=== PATIENT | female | born 1980 | race Caucasian/White ===

== ENCOUNTER → 2021-06-08 09:22 | Outpatient (BNVA) | payer OTHER, SELFPAY | PROVIDERS: PCP Internal Medicine; Visit Provider Hospitalist ==

== ENCOUNTER 2022-01-09 14:52 | Outpatient (REF) | payer OTHER, SELFPAY ==
--- NOTE | 2022-01-09 17:15 | PFT_ITS ---
Forced vital capacity 92%. FEV1 94%, FEV1/FVC ratio 83, EOE56-39 98% and MVV 97%. All these values are normal. There was no significant change after bronchodilator therapy. Lung volumes: Total lung capacity 96%. Residual volume 101%, normal. Diffusion capacity 105, normal. CONCLUSION: Normal pulmonary function test. No evidence of obstructive or restrictive pulmonary disorder. MD MIRTA Knapp/MODL / [id number]
== END 2022-01-09 14:53 | disposition home or self-care (01) ==
LOC: HO.RESP 14:52
PROVIDERS: PCP Internal Medicine; Visit Provider Hospitalist
DX: J45.40 Moderate persistent asthma, uncomplicated (principal); E88.01 Alpha-1-antitrypsin deficiency
CPT/HCPCS: 94060; 94727; 94729

== ENCOUNTER 2022-01-26 10:47 | Outpatient (REF) | payer OTHER, SELFPAY ==
[2022-01-26 11:49] LABS: MANUAL DIFF FLAG NO
[2022-01-26 12:27] LABS: Basophils Percent Auto 0.6 % (0-2); Eosinophils Percent Auto 0.4 % (0-4); Hematocrit 42.5 % (37.0-47.0); Hemoglobin 14.5 g/dl (12.0-16.0); Imm Gran Abs Auto 0.02 X10*3/uL (0.00-0.03); Imm Gran Pct Auto 0.4 % (0.0-0.4); Lymphocytes Absolute Auto 1.6 X10*3/uL (1.2-4.9); Lymphocytes Percent Auto 33.2 % (20-40); Mean Corpuscular HGB Conc 34.1 g/dl (31.0-35.0); Mean Corpuscular Hemoglobin 30.3 pg (27.0-33.0); Mean Corpuscular Volume 88.7 fL (80.0-98.0); Mean Platelet Volume 8.5 fL (9.4-12.3); Monocytes Absolute Auto 0.3 X10*3/uL (0.1-1.2); Monocytes Percent Auto 6.4 % (2-11); Neutrophils Absolute Auto 2.8 x10*3/uL (2.0-8.3); Platelet Count 313 X10*3/uL (160-400); Red Blood Count 4.79 X10*6/uL (4.20-5.50); Red Cell Distribution Width 12.6 % (11.0-16.0); White Blood Count 4.8 X10*3/uL (4.8-10.8)
[2022-01-26 12:43] LABS: Alanine Aminotransferase 12 U/L (0-31); Albumin Level 4.4 g/dL (3.5-5.0); Alkaline Phosphatase 60 U/L (39-117); Anion Gap 10 (12-20); Aspartate Amino Transferase 14 U/L (5-31); Bilirubin Direct 0.2 mg/dL (0.0-0.5); Bilirubin Total 0.7 mg/dL (0.0-1.0); Blood Urea Nitrogen 18 mg/dL (9-16); Calcium 9.6 mg/dL (8.4-10.2); Carbon Dioxide 29 mmol/L (22-29); Chloride 106 mmol/L (96-108); Estimated Glomerular Filt Rate > 60; Glucose Random 83 mg/dL (60-115); Potassium 4.1 mmol/L (3.3-5.1); Sodium 141 mmol/L (135-145)
[2022-01-26 13:11] LABS: Erythrocyte Sedimentation Rate 5 MM/HR (0-20)
[2022-01-27 18:37] LABS: Immunoglobulin E 97 kU/L (<OR=114)
== END 2022-01-26 10:48 | disposition home or self-care (01) ==
LOC: HO.LAB 10:47
PROVIDERS: PCP Internal Medicine; Visit Provider Hospitalist
DX: J45.40 Moderate persistent asthma, uncomplicated (principal); E88.01 Alpha-1-antitrypsin deficiency; J30.9 Allergic rhinitis, unspecified; R21 Rash and other nonspecific skin eruption; Z79.899 Other long term (current) drug therapy
CPT/HCPCS: 36415; 80048; 80076; 82785; 85025; 85652

== ENCOUNTER 2023-01-26 11:12 | Outpatient (REF) | payer OTHER, SELFPAY ==
[2023-01-26 12:26] LABS: MANUAL DIFF FLAG NO
[2023-01-26 13:38] LABS: Basophils Percent Auto 0.5 % (0-2); Eosinophils Absolute Auto 0.1 X10*3/uL (0.0-0.4); Eosinophils Percent Auto 0.9 % (0-4); Hematocrit 42.7 % (37.0-47.0); Hemoglobin 14.3 g/dl (12.0-16.0); Imm Gran Abs Auto 0.03 X10*3/uL (0.00-0.03); Imm Gran Pct Auto 0.5 % (0.0-0.4); Lymphocytes Percent Auto 35.6 % (20-40); Mean Corpuscular HGB Conc 33.5 g/dl (31.0-35.0); Mean Corpuscular Hemoglobin 29.2 pg (27.0-33.0); Mean Corpuscular Volume 87.3 fL (80.0-98.0); Mean Platelet Volume 8.6 fL (9.4-12.3); Monocytes Absolute Auto 0.5 X10*3/uL (0.1-1.2); Monocytes Percent Auto 8.1 % (2-11); Neutrophils Absolute Auto 3.1 x10*3/uL (2.0-8.3); Neutrophils Percent Auto 54.4 % (45-73); Platelet Count 300 X10*3/uL (160-400); Red Blood Count 4.89 X10*6/uL (4.20-5.50); Red Cell Distribution Width 12.8 % (11.0-16.0); White Blood Count 5.7 X10*3/uL (4.8-10.8)
[2023-01-26 14:18] LABS: Alanine Aminotransferase 18 U/L (0-31); Albumin Level 4.4 g/dL (3.5-5.0); Alkaline Phosphatase 63 U/L (39-117); Anion Gap 12 (12-20); Aspartate Amino Transferase 17 U/L (5-31); Bilirubin Direct < 0.2 mg/dL (0.0-0.5); Bilirubin Total 0.4 mg/dL (0.0-1.0); Blood Urea Nitrogen 15 mg/dL (9-16); Calcium 9.5 mg/dL (8.4-10.2); Carbon Dioxide 25 mmol/L (22-29); Chloride 107 mmol/L (96-108); Estimated Glomerular Filt Rate > 60; Glucose Random 74 mg/dL (60-115); Potassium 4.4 mmol/L (3.3-5.1); Sodium 140 mmol/L (135-145); Total Protein 6.9 g/dL (6.5-8.0)
[2023-01-26 14:26] LABS: Erythrocyte Sedimentation Rate 8 MM/HR (0-20)
[2023-01-29 16:34] LABS: Alpha 1 Anti-trypsin 229 mg/dL (83-199)
[2023-02-02 15:48] LABS: Vitamin D 25-OH, D2 <4 ng/mL; Vitamin D 25-OH, D3 13 ng/mL; Vitamin D 25-OH, Total 13 ng/mL (30-100)
== END 2023-01-26 11:13 | disposition home or self-care (01) ==
LOC: HO.LAB 11:12
PROVIDERS: PCP Internal Medicine; Visit Provider Hospitalist
DX: Z23 Encounter for immunization (principal); E88.01 Alpha-1-antitrypsin deficiency; R21 Rash and other nonspecific skin eruption; J45.40 Moderate persistent asthma, uncomplicated; J30.9 Allergic rhinitis, unspecified; E55.9 Vitamin D deficiency, unspecified
CPT/HCPCS: 36415; 80048; 80076; 82103; 82306; 85025; 85652; 90471; 90677

== ENCOUNTER 2023-07-27 10:53 | Outpatient (AMB) | payer OTHER, SELFPAY ==
--- NOTE | 2023-07-27 10:54 | A.OFFVIS_ITS ---
Intake Vital Signs 07/27/23 10:55 Height 5 ft 2 in Weight 144 lb 6.444 oz BMI 26.4 BP 102/72 Blood Pressure Location Rt brachial Position Sitting Pulse 84 Pulse Source Doppler Pulse Oximetry (%) 98 Oxygen Delivery Method Room Air Intake Visit Reasons: Asthma Allergies No Known Allergies Allergy (Verified 07/27/23 10:56) HPI HPI Comments History of Present Illness Details The patient is a 43 y/o woman with known history asthma in addition to alpha-1 antitrypsin deficiency, MZ with levels of 70, currently receiving aug mentation therapy. overall the patient has been doing well on room respiratory therapy. Recently she has had to use her rescue inhaler a couple times for chest tightness and shortness of breath. She has not required any prednisone and has not required any hospitalizations. The patient has been tolerating her off of 1 augmentation therapy without any significant side effects. She does feel tired 24-48 hours after the infusions. The symptoms do resolve. We did review her blood work from October 2020 demonstrating normal renal and liver function. Her inflammatory markers were normal and her off I level increased to 157. in addition to that her IgE levels were elevated consistent with allergies. At this time the patient with plan to continue the infusion therapy. Will plan to repeat her pulmonary function studies and laboratory data sometime the end of the year. 01/26/2022 The patient is here for a pulmonary follow up visit. Overall the patient has been doing well from a respiratory status. She continues to exercise regularly. She has been noticing increasing nasal congestion and postnasal drip as well as worsening cough. Although her asthma appears to be well controlled with current respiratory therapy. She has not required her short-acting beta agonist. She has continued to receive her weekly augmentation therapy for alpha-1 antitrypsin deficiency. Although for the last few months he has been noticing a rash. The rash is patchy and pruritic. within the patch appears to be some evidence of petechiae in addition to slightly raised papules. she has these patches primarily in her legs that come and go in addition to her lower abdomen. She denies any new changes of detergents or any other exposures. The patient would benefit from having an evaluation from a internet webmaster. In the meantime he to consider it potentially being a allergic reaction to the alpha-1 infusions. She will continue the therapy I will add antihistamine therapy to see if she received some benefit. Will also have her undergo blood work. 08/04/2022 the patient is here for a pulmonary follow-up visit. Patient overall is doing well from a respiratory status. Denies any recent wheezing or significant coughing. She continues to receive her augmentation therapy for her alpha-1 antitrypsin deficiency. Lately, she has been experiencing rashes. She was evaluated by dermatology in felt to be eczema. Subsequently after that she started developing hip discomfort and burning sensations down the leg. Patient also complains small joint discomfort primarily her hands. Denies any family history of connective tissue conditions. She will be following up with her primary care doctor soon. I did encourage her to for her to undergo blood work just to assess for connective tissue conditions during her next appointment with primary care. In the meantime the patient also is concerned these symptoms could be adverse effects from the augmentation therapy for her alpha-1 a ntitrypsin deficiency. I believe this would be less likely. However, she can always consider taking a small holiday from the infusions to see if there is any improvement in her symptoms if no clear etiology is found. 01/26/2023 the patient is here for a pulmonary follow-up visit. Overall the patie nt has been doing well. She is still exercising regularly. She did have an issue with a fractured little toe where did heal for about 3 months. She had vitamin-D levels that were low. She was reading about alpha-1 antitrypsin deficiency working resulting osteopenia. Therefore she is concerned for the possibility of this to be the case. At this point will go ahead and repeat her vitamin-D levels and calcium levels but I do not believe that additional testing is warranted as far as the alpha-1 condition. She is also concerned about the possibility of liver disease in the future. Will continue to monitor closely her LFTs although they have been normal in the past. The patient continues to receive the augmentation therapy for the off a want a weekly basis. She seems to be tolerating it better. Her allergies have been acting up. She is taking owyc-lpa-jakygko antihistamine therapy. The patient will undergo blood work at this time. Otherwise, will follow-up in the fall 2022. 07/27/2023 the patient is here for pulmonary follow-up visit. She continues to do very well. The patient continues on the alpha-1 augmentation therapy on a weekly basis. After the infusions she is still experiencing symptoms of fatigue and also body ache. The symptoms usually last around 24 hours. She also snores per her . She has had a sleep study many years ago which was negative for any sleep apnea. Although if she continues to have daytime drowsiness with an elevated Hazel score then over reasonable for her to get home sleep study. She does use a mouth guard. I did recommend she can talk to her dentist about getting hurt elastic type of mandibular device with mouth guards as a good option for snoring and also likely treat mild degree of sleep apnea. We talked about considering switching to a different agent, but, the patient is concerned about potential new side effects from a different preparation. At least do this when she knows where she is getting. She does g et some relief when she does take Naprosyn after the infusion. I did recommend she can try taking magnesium for muscle spasms prior to the infusion if this is not helpful then just to take ibuprofen or Naprosyn pre infusion. Will go ahead and repeat her blood work for the next visit her last set of blood work From January 2023 were reassuring. [facility] Medical History (Updated 08/06/22 @ 21:47 by Bryant Barraza MD) Liuxu-3-ykdhkgldyln deficiency Asthma Chronic allergic rhinitis Family History (Updated 06/12/21 @ 21:47 by Bryant Barraza MD) Other Vvzgb-6-ecbokzqdjcj deficiency Asthma Social History Patient Tobacco Use Status: Never used Tobacco Review of Systems Const Reports fatigue and Denies night sweats ENT Denies change in voice, Denies lip swelling, Denies mouth pain, Reports nasal congestion, Reports nasal discharge and Denies tongue swelling Card Denies chest pain Resp Reports cough GI Denies abdominal pain Musc Reports as per HPI, Reports myalgias and Reports arthralgias Skin/Breast Reports rash Neuro Denies Neuro-related abnormal movements, Reports burning sensations and Reports paresthesias Psych Denies no additional complaints Endo Reports fatigue Khoa/Lymph Denies easy bleeding and Denies lymphadenopathy Aller/Immun Denies lip swelling and Denies tongue swelling Physical Exam Vital Signs: Last Vital Signs Pulse 84 07/27/23 10:55 BP 102/72 07/27/23 10:55 Pulse Ox 98 07/27/23 10:55 Oxygen Delivery Method Room Air 07/27/23 10:55 BMI result Body Mass Index 26.4 Const General: alert Eyes Pupils: Equal, round and reactive pupils present Neck Neck: Yes normal visual inspection, Yes full ROM and Yes no lymphadenopathy Chest Chest palpation & inspection: normal inspection of the chest Resp Auscultation: clear to auscultation bilaterally and no wheezes Cardio Rate: regular rate Rhythm: regular rhythm Heart sounds: S1 normal heart sound present and S2 normal heart sound present GI Palpation (GI): Soft to palpation and nontender Auscultation: normal bowel sounds Skin Other: General skin exam: petechiae Rashes: rashes noted (pleuritic patches and petichia) Neuro Cranial nerves: Yes Equal, round and reactive pupils present Assessment & Plan Assessment & Plan (1) Zhvpo-8-tgzmhetclcw deficiency: Code(s): E88.01 - Oyqxa-7-zxxlokdrpjt deficiency (2) Asthma: Code(s): J45.909 - Unspecified asthma, uncomplicated Qualifiers: Asthma complication type: uncomplicated Asthma persistence: persistent Asthma severity: moderate Qualified Code(s): J45.40 - Moderate persistent asthma, uncomplicated (3) Chronic allergic rhinitis: Code(s): J30.9 - Allergic rhinitis, unspecified Plan start Symbicort stop Breo Continue Singulair Continue alpha 1 antitrypsin aumentation therapy weekly. consider taking OTC Magnesium or NSAIDS pre infusion pneumonia vaccine Bloodwork for the spring/spring Orders: Orders Alpha 1 Anti-trypsin Today E88.01 - Ryfzl-2-ingkzqdwesx deficiency, J45.909 - Unspecified asthma, uncomplicated Basic Metabolic Panel Today E88.01 - Dojch-3-fdowzyqpmxf deficiency, J45.909 - Unspecified asthma, uncomplicated Liver Panel Today E88.01 - Wwwtg-8-qsuqafiulxu deficiency, J45.909 - Unspecified asthma, uncomplicated Complete Blood Count Auto Diff Today E88.01 - Qekan-5-cfokoahzhaf deficiency, J45.909 - Unspecified asthma, uncomplicated Erythrocyte Sedimentation Rate Today E88.01 - Wvjrv-8-yjnnlwaznpj deficiency, J45.909 - Unspecified asthma, uncomplicated Immunoglobulin E Today E88.01 - Uvvwy-2-usqrchzwahu deficiency, J45.909 - Unspecified asthma, uncomplicated Medications: New budesonide-formoterol 160-4.5 mcg/actuation (Symbicort) 2 puffs inhalation BID 10.2 grams 11RF 30 days J44.9 - Chronic obstructive pulmonary disease, unspecified Discontinued fluticasone furoate-vilanterol 200-25 mcg/dose (Breo Ellipta) patient needs follow up before any further refills Discontinued Reason: Doctor's Order 1 inh inhalation DAILY 60 ea 11RF Coding Level of Care Code Est Pt Level 4 (02927) Diagnoses Zvzzt-2-udnglamuiqz 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 Asthma J45.40 Asthma complication type: uncomplicated Asthma persistence: persistent Asthma severity: moderate Chronic allergic rhinitis J30.9 Time Spent (min) 18
[2023-07-27 10:55] VITALS: BP 102/72; PULSE 84; O2SAT 98; BMI 26.4
== END 2023-07-27 11:25 | disposition home or self-care (01) ==
PROVIDERS: PCP Internal Medicine; Visit Provider Hospitalist
DX: E88.01 Alpha-1-antitrypsin deficiency (principal); J45.40 Moderate persistent asthma, uncomplicated; J30.9 Allergic rhinitis, unspecified
CPT/HCPCS: 99214

== ENCOUNTER → 2023-07-27 10:53 | Outpatient (BNVA) | payer OTHER, SELFPAY | PROVIDERS: PCP Internal Medicine; Visit Provider Hospitalist | DX: R21 Rash and other nonspecific skin eruption (principal); J45.909 Unspecified asthma, uncomplicated; E88.01 Alpha-1-antitrypsin deficiency ==

== ENCOUNTER 2023-11-27 10:48 | Outpatient (REF) | payer OTHER, SELFPAY ==
[2023-11-27 12:35] LABS: Influenza A PCR NEGATIVE (Negative); Influenza B PCR NEGATIVE (Negative); Resp Syncy Virus RNA Qual PCR NEGATIVE (Negative); SARS COV2 PCR INHOUSE NEGATIVE (Negative)
== END 2023-11-27 10:49 | disposition home or self-care (01) ==
LOC: HO.LNP 10:48
PROVIDERS: PCP Internal Medicine; Visit Provider Hospitalist
DX: Z11.52 Encounter for screening for COVID-19 (principal); J06.9 Acute upper respiratory infection, unspecified; J45.41 Moderate persistent asthma with (acute) exacerbation
CPT/HCPCS: 0241U

== ENCOUNTER 2023-11-27 10:48 | Outpatient (AMB) | payer OTHER, SELFPAY ==
[2023-11-27 10:57] VITALS: PULSE 89; O2SAT 96; BMI 26.5
--- NOTE | 2023-11-27 10:57 | A.OFFVIS_ITS ---
Intake Vital Signs 3 11/27/23 10:57 Height 5 ft 2 in Weight 145 lb BMI 26.5 Pulse 89 Pulse Source Pulse Oximeter Pulse Oximetry (%) 96 Oxygen Delivery Method Room Air Intake Visit Reasons: Cough Director Of Critical Care Required: No Allergies No Known Allergies Allergy (Verified 11/27/23 10:58) HPI HPI Comments 2 History of Present Illness0 Details The patient is a 43 y/o woman with known history asthma in addition to alpha-1 antitrypsin deficiency, MZ with levels of 70, currently receiving augmentation therapy. overall the patient has been doing well on room respiratory therapy. Recently she has had to use her rescue inhaler a couple times for chest tightness and shortness of breath. She has not required any prednisone and has not required any hospitalizations. The patient has been tolerating her off of 1 augmentation therapy without any significant side effects. She does feel tired 24-48 hours after the infusions. The symptoms do resolve. We did review her blood work from October 2020 demonstrating normal renal and liver function. Her inflammatory markers were normal and her off I level increased to 157. in addition to that her IgE levels were elevated consistent with allergies. At this time the patient with plan to continue the infusion therapy. Will plan to repeat her pulmonary function studies and laboratory data sometime the end of the year. 01/26/2022 The patient is here for a pul monary follow up visit. Overall the patient has been doing well from a respiratory status. She continues to exercise regularly. She has been noticing increasing nasal congestion and postnasal drip as well as worsening cough. Although her asthma appears to be well controlled with current respiratory therapy. She has not required her short-acting beta agonist. She has continued to receive her weekly augmentation therapy for alpha-1 antitrypsin deficiency. Although for the last few months he has been noticing a rash. The rash is patchy and pruritic. within the patch appears to be some evidence of petechiae in addition to slightly raised papules. she has these patches primarily in her legs that come and go in addition to her lower abdomen. She denies any new changes of detergents or any other exposures. The patient would benefit from having an evaluation from a solar installation technician. In the meantime he to consider it potentially being a allergic reaction to the alpha-1 infusions. She will continue the therapy I will add antihistamine therapy to see if she received some benefit. Will also have her undergo blood work. 08/04/2022 the patient is here for a pulmonary follow-up visit. Patient overall is doing well from a respiratory status. Denies any recent wheezing or significant coughing. She continues to receive her augmentation therapy for her alpha-1 antitrypsin deficiency. Lately, she has been experiencing rashes. She was evaluated by dermatology in felt to be eczema. Subsequently after that she started developing hip discomfort and burning sensations down the leg. Patient also complains small joint discomfort primarily her hands. Denies any family history of connective tissue conditions. She will be following up with her primary care doctor soon. I did encourage her to for her to undergo blood work just to assess for connective tissue conditions during her next appointment with primary care. In the meantime the patient also is concerned these symptoms could be adverse effects from the augmentation therapy for her alpha-1 antitrypsin deficiency. I believe this would be less likely. However, she can always consider taking a small holiday from the infusions to see if there is any improvement in her symptoms if no clear etiology is found. 01/26/2023 the patient is here for a pulmo nary follow-up visit. Overall the patient has been doing well. She is still exercising regularly. She did have an issue with a fractured little toe where did heal for about 3 months. She had vitamin-D levels that were low. She was reading about alpha-1 antitrypsin deficiency working resulting osteopenia. Therefore she is concerned for the possibility of this to be the case. At this point will go ahead and repeat her vitamin-D levels and calcium levels but I do not believe that additional testing is warranted as far as the alpha-1 condition. She is also concerned about the possibility of liver disease in the future. Will continue to monitor closely her LFTs although they have been normal in the past. The patient continues to receive the augmentation therapy for the off a want a weekly basis. She seems to be tolerating it better. Her allergies have been acting up. She is taking flrb-ihf-npcimir antihistamine therapy. The patient will undergo blood work at this time. Otherwise, will follow-up in the fall 2022. 07/27/2023 the patient is here for pulmonary follow-up visit. She continues to do very well. The patient continues on the alpha-1 augmentation therapy on a weekly basis. After the infusions she is still experiencing symptoms of fatigue and also body ache. The symptoms usually last around 24 hours. She also snores per her . She has had a sleep study many years ago which was negative for any sleep apnea. Although if she continues to have daytime drowsiness with an elevated Delphia score then over reasonable for her to get home sleep study. She does use a mouth guard. I did recommend she can talk to her dentist about getting hurt elastic type of mandibular device with mouth guards as a good option for snoring and also likely treat mild degree of sleep apnea. We talked about considering switching to a different agent, but, the patient is concerned about potential new side effects from a different preparation. At least do this when she knows where she is getting. She does get some relief when she does take Naprosyn after the infusion. I did recommend she can try taking magnesium for muscle spasms prior to the infusion if this is not helpful then just to take ibuprofen or Naprosyn pre infusion. Will go ahead and repeat her blood work for the next visit her last set of blood work From January 2023 were reassuring. 11/27/2023 the patient is here for sick [facility]. Apparently she has been sick now for about 5 days. She started getting sick on Sunday evening when she developed some chest tightness and cough. Noticing increasing wheezing. She started using her nebulizer more often. Then she became very fatigued. She did test negative for COVID-19. The patient started coughing and chest congestion with yellow phlegm. She feels still very tired. She did have a swab today which was negative for the flu RSV and also COVID. The patient does have some persistent coughing and also some wheezing on examination. Therefore will go ahead and treated for asthmatic bronchitis. No need for an x-ray at this time. If her symptoms do not respond to her therapy the patient will call for further evaluation. [facility] Medical History (Updated 11/27/23 @ 12:59 by Bryant Barraza MD) Chronic allergic rhinitis Asthma Wjqpc-9-lqhgnfaxdhl deficiency Family History (Updated 06/12/21 @ 21:47 by Bryant Barraza MD) Other Amzyy-5-jcxnfpsfexi deficiency Asthma Social History Patient Tobacco Use Status: Never used Tobacco Review of Systems Const Reports chills, Reports fatigue, Denies fever(s), Reports malaise and Denies night sweats ENT Denies change in voice, Denies lip swelling, Denies mouth pain, Reports nasal congestion, Reports nasal discharge, Reports post nasal drip, Reports sinus pain, Reports sinus pressure and Denies tongue swelling Card Denies chest pain Resp Reports change in phlegm color, Reports chest congestion, Reports cough and Reports wheezing GI Denies abdominal pain Musc Reports as per HPI, Reports myalgias and Reports arthralgias Skin/Breast Reports rash Neuro Denies Neuro-related abnormal movements, Reports burning sensations and Reports paresthesias Psych Denies no additional complaints Endo Reports fatigue Khoa/Lymph Denies easy bleeding and Denies lymphadenopathy Aller/Immun Denies lip swelling, Denies tongue swelling and Reports wheezing Physical Exam Vital Signs: Last Vital Signs Pulse 89 11/27/23 10:57 Pulse Ox 96 11/27/23 10:57 Oxygen Delivery Method Room Air 11/27/23 10:57 BMI result Body Mass Index 26.5 Const General: alert and tired appearing Eyes Pupils: Equal, round and reactive pupils present Neck Neck: Yes normal visual inspection, Yes full ROM and Yes no lymphadenopathy Chest Chest palpation & inspection: normal inspection of the chest Resp Effort & Inspection: Actively coughing Auscultation: clear to auscultation bilaterally, rhonchi and wheezes Cardio Rate: regular rate Rhythm: regular rhythm Heart sounds: S1 normal heart sound present and S2 normal heart sound present GI Palpation (GI): Soft to palpation and nontender Auscultation: normal bowel sounds Skin Other: General skin exam: petechiae Rashes: rashes noted (pleuritic patches and petichia) Neuro Cranial nerves: Yes Equal, round and reactive pupils present Assessment & Plan Assessment & Plan (1) Asthma: Code(s): J45.909 - Unspecified asthma, uncomplicated Qualifiers: Asthma severity: moderate Asthma persistence: persistent Asthma complication type: with acute exacerbation Qualified Code(s): J45.41 - Moderate persistent asthma with (acute) exacerbation (2) URI (upper respiratory infection): Code(s): J06.9 - Acute upper respiratory infection, unspecified Qualifiers: URI type: unspecified URI Qualified Code(s): J06.9 - Acute upper respiratory infection, unspecified (3) Epjva-0-yeanagzdwgo deficiency: Code(s): E88.01 - Nhwkv-8-ovfotfienfh deficiency (4) Chronic allergic rhinitis: Code(s): J30.9 - Allergic rhinitis, unspecified Plan start Doxycycline start prednisone cough medicine tessalon pearls Symbicort Continue Singulair Continue alpha 1 antitrypsin aumentation therapy weekly. consider taking OTC Magnesium or NSAIDS pre infusion pneumonia vaccine F/U Spring 2023 Orders: Orders 2 SARS-CoV2/FLU/RSV Today J06.9 - Acute upper respiratory infection, unspecified Medications: New 2 doxycycline hyclate 100 mg PO BID 10 days 20 caps 0RF codeine-guaifenesin 10-100 mg/5 mL 10 mL PO Q6H 10 days PRN 300 mL 0RF cough prednisone PO daily; Take 2 tabs daily x 5 days, then 1 tablet daily x 5 days 10 days 15 tabs 0RF benzonatate 200 mg PO BID 30 days PRN 60 caps 0RF cough Coding Level of Care Code Est Pt Level 4 (05461) Diagnoses Moderate persistent asthma with acute exacerbation J45.41 Asthma severity: moderate Asthma persistence: persistent Asthma complication type: with acute exacerbation Upper respiratory tract infection, unspecified type J06.9 URI type: unspecified URI Mhdqi-3-bhfldaabgwv 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 Chronic allergic rhinitis J30.9 Time Spent (min) 16
== END 2023-11-27 11:12 | disposition home or self-care (01) ==
PROVIDERS: PCP Internal Medicine; Visit Provider Hospitalist
DX: J45.41 Moderate persistent asthma with (acute) exacerbation (principal); J06.9 Acute upper respiratory infection, unspecified; E88.01 Alpha-1-antitrypsin deficiency; J30.9 Allergic rhinitis, unspecified
CPT/HCPCS: 99214

== ENCOUNTER 2024-03-21 10:58 | Outpatient (AMB) | payer OTHER, SELFPAY ==
[2024-03-21 11:20] VITALS: PULSE 68; O2SAT 99; BMI 26.9
--- NOTE | 2024-03-21 11:20 | MHC.OFFVIS ---
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 overall the patient has been doing well on room respiratory therapy. Recently she has had to use her rescue inhaler a couple times for chest tightness and shortness of breath. She has not required any prednisone and has not required any hospitalizations. The patient has been tolerating her off of 1 augmentation therapy without any significant side effects. She does feel tired 24-48 hours after the infusions. The symptoms do resolve. We did review her blood work from October 2020 demonstrating normal renal and liver function. Her inflammatory markers were normal and her off I level increased to 157. in addition to that her IgE levels were elevated consistent with allergies. At this time the patient with plan to continue the infusion therapy. Will plan to repeat her pulmonary function studies and laboratory data sometime the end of the year. 07/27/2023 the patient is here for pulmonary follow-up visit. She continues to do very well. The patient continues on the alpha-1 augmentation therapy on a weekly basis. After the infusions she is still experiencing symptoms of fatigue and also body ache. The symptoms usually last around 24 hours. She also snores per her . She has had a sleep study many years ago which was negative for any sleep apnea. Although if she continues to have daytime drowsiness with an elevated [place] score then over reasonable for her to get home sleep study. She does use a mouth guard. I did recommend she can talk to her dentist about getting hurt elastic type of mandibular device with mouth guards as a good option for snoring and also likely treat mild degree of sleep apnea. We talked about considering switching to a different agent, but, the patient is concerned about potential new side effects from a different preparation. At least do this when she knows where she is getting. She does get some relief when she does take Naprosyn after the infusion. I did recommend she can try taking magnesium for muscle spasms prior to the infusion if this is not helpful then just to take ibuprofen or Naprosyn pre infusion. Will go ahead and repeat her blood work for the next visit her last set of blood work From January 2023 were reassuring. 11/27/2023 the patient is here for sick visit. Apparently she has been sick now for about 5 days. She started getting sick on Sunday evening when she developed some chest tightness and cough. Noticing increasing wheezing. She started using her nebulizer more often. Then she became very fatigued. She did test negative for COVID-19. The patient started coughing and chest congestion with yellow phlegm. She feels still very tired. She did have a swab today which was negative for the flu RSV and also COVID. The patient does have some persistent coughing and also some wheezing on examination. Therefore will go ahead and treated for asthmatic bronchitis. No need for an x-ray at this time. If her symptoms do not respond to her therapy the patient will call for further evaluation. 03/21/2024 the patient is here for a pulmonary follow-up visit. Overall she is still well. She continues infusions on a weekly basis. Still having significant fatigue after the infusions where she needs to usually rest for the rest of the day. She still developing minimal rashes from the infusions. Is using premedications with Benadryl which helped some. She has never had to use her EpiPen. She will continue to monitor closely for any adverse effects or allergic reactions. I which point we would have to hold the infusions. The other poor products we can use but then the also be something new for her to tolerate. Therefore since she is doing okay right now nothing seems to be getting worse will continue with current plan. She will have blood work to make sure that she is tolerating the therapy well and will have to monitor closely her alpha-1 levels and also her liver function studies. The patient continues the Symbicort inhaler. She is exercising more regularly which is reassuring. Overall she feels better from health status standpoint. [facility] Medical History (Updated 03/23/24 @ 22:40 by Bryant Barraza MD) Chronic allergic rhinitis Asthma Xaegm-8-cvwaaowjbvl deficiency Family History (Updated 06/12/21 @ 21:47 by Bryant Barraza MD) Other Stbzu-2-jjcdmmfxagr deficiency Asthma Social History Patient Tobacco Use Status: Never used Tobacco Review of Systems Const Reports chills, Reports fatigue, Denies fever(s), Reports malaise and Denies night sweats ENT Denies change in voice, Denies lip swelling, Denies mouth pain, Reports nasal congestion, Reports nasal discharge, Reports post nasal drip and Denies tongue swelling Card Denies chest pain Resp Denies change in phlegm color, Denies chest congestion, Reports cough and Denies wheezing GI Denies abdominal pain Musc Reports as per HPI, Reports myalgias and Reports arthralgias Skin/Breast Reports rash Neuro Denies Neuro-related abnormal movements, Reports burning sensations and Reports paresthesias Psych Denies no additional complaints Endo Reports fatigue Khoa/Lymph Denies easy bleeding and Denies lymphadenopathy Aller/Immun Denies lip swelling, Denies tongue swelling and Denies wheezing Physical Exam Vital Signs: Last Vital Signs Pulse 68 03/21/24 11:20 Pulse Ox 99 03/21/24 11:20 Oxygen Delivery Method Room Air 03/21/24 11:20 BMI result Body Mass Index 26.9 Const General: alert and tired appearing HEENT Head: Yes normocephalic Eyes Pupils: Equal, round and reactive pupils present Neck Neck: Yes normal visual inspection, Yes full ROM and Yes no lymphadenopathy Chest Chest palpation & inspection: normal inspection of the chest Resp Effort & Inspection: normal respiratory effort and No prolonged expiratory phase Auscultation: clear to auscultation bilaterally Cardio Rate: regular rate Rhythm: regular rhythm Heart sounds: S1 normal heart sound present and S2 normal heart sound present GI Palpation (GI): Soft to palpation and nontender Auscultation: normal bowel sounds Skin Other: General skin exam: petechiae Rashes: rashes noted (pleuritic patches and petichia) Neuro Cranial nerves: Yes Equal, round and reactive pupils present Assessment & Plan Assessment & Plan (1) Asthma: Code(s): J45.909 - Unspecified asthma, uncomplicated Category: Medical Qualifiers: Asthma complication type: uncomplicated Asthma persistence: persistent Asthma severity: moderate Qualified Code(s): J45.40 - Moderate persistent asthma, uncomplicated (2) Lbumu-5-wvcdrfiptju deficiency: Code(s): E88.01 - Blpre-0-gegppziccxh deficiency Category: Medical (3) Chronic allergic rhinitis: Code(s): J30.9 - Allergic rhinitis, unspecified Category: Medical Plan Symbicort JOSEPH as needed Continue Singulair Continue alpha 1 antitrypsin aumentation therapy weekly. Monitor for worsening rash bloodwork F/U 6 months Orders: Orders Alpha 1 Anti-trypsin 03/21/24 E88.01 - Noceu-4-fdwfdlrjdyx deficiency, J30.9 - Allergic rhinitis, unspecified, J45.41 - Moderate persistent asthma with (acute) exacerbation Erythrocyte Sedimentation Rate 03/21/24 E88.01 - Jwjxq-8-oibotniqtsb deficiency, J30.9 - Allergic rhinitis, unspecified, J45.41 - Moderate persistent asthma with (acute) exacerbation Complete Blood Count Auto Diff 03/21/24 E88.01 - Mbteu-6-uiybvptuatk deficiency, J30.9 - Allergic rhinitis, unspecified, J45.41 - Moderate persistent asthma with (acute) exacerbation Basic Metabolic Panel 03/21/24 E88.01 - Clehn-9-hyebsrktxyh deficiency, J30.9 - Allergic rhinitis, unspecified, J45.41 - Moderate persistent asthma with (acute) exacerbation Medications: New budesonide-formoterol 160-4.5 mcg/actuation 2 puffs inhalation BID 10.2 grams 11RF 30 days J44.89 - Other specified chronic obstructive pulmonary disease Coding Level of Care Code Est Pt Level 4 (89246) Diagnoses Moderate persistent asthma without complication J45.40 Asthma complication type: uncomplicated Asthma persistence: persistent Asthma severity: moderate Ynhtw-9-megpxxxwjwi 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 Chronic allergic rhinitis J30.9 Time Spent (min) 16
== END 2024-03-21 11:48 | disposition home or self-care (01) ==
PROVIDERS: PCP Internal Medicine; Visit Provider Hospitalist
DX: J45.40 Moderate persistent asthma, uncomplicated (principal); E88.01 Alpha-1-antitrypsin deficiency; J30.9 Allergic rhinitis, unspecified
CPT/HCPCS: 99214

== ENCOUNTER → 2024-03-21 10:58 | Outpatient (BNVA) | payer OTHER, SELFPAY | PROVIDERS: PCP Internal Medicine; Visit Provider Hospitalist | DX: R21 Rash and other nonspecific skin eruption (principal); J45.909 Unspecified asthma, uncomplicated; E88.01 Alpha-1-antitrypsin deficiency; J44.9 Chronic obstructive pulmonary disease, unspecified ==

== ENCOUNTER 2024-04-02 13:20 | Outpatient (REF) | payer OTHER, SELFPAY ==
[2024-04-02 13:32] LABS: MANUAL DIFF FLAG NO
[2024-04-02 13:40] LABS: Basophils Absolute Auto 0.1 X10*3/uL (0.0-0.2); Basophils Percent Auto 0.9 % (0-2); Eosinophils Absolute Auto 0.1 X10*3/uL (0.0-0.4); Eosinophils Percent Auto 0.9 % (0-4); Hematocrit 41.5 % (37.0-47.0); Hemoglobin 14.4 g/dl (12.0-16.0); Imm Gran Abs Auto 0.02 X10*3/uL (0.00-0.03); Imm Gran Pct Auto 0.3 % (0.0-0.4); Lymphocytes Percent Auto 35.1 % (20-40); Mean Corpuscular HGB Conc 34.7 g/dl (31.0-35.0); Mean Corpuscular Volume 86.5 fL (80.0-98.0); Mean Platelet Volume 8.3 fL (9.4-12.3); Monocytes Absolute Auto 0.5 X10*3/uL (0.1-1.2); Monocytes Percent Auto 8.6 % (2-11); Neutrophils Absolute Auto 3.1 x10*3/uL (2.0-8.3); Neutrophils Percent Auto 54.2 % (45-73); Platelet Count 294 X10*3/uL (160-400); Red Cell Distribution Width 12.6 % (11.0-16.0); White Blood Count 5.7 X10*3/uL (4.8-10.8)
[2024-04-02 14:15] LABS: Anion Gap 12 (12-20); Blood Urea Nitrogen 17 mg/dL (9-16); Calcium 9.8 mg/dL (8.4-10.2); Carbon Dioxide 27 mmol/L (22-29); Chloride 107 mmol/L (96-108); Estimated Glomerular Filt Rate > 60; Glucose Random 90 mg/dL (60-115); Potassium 4.1 mmol/L (3.3-5.1); Sodium 142 mmol/L (135-145)
[2024-04-02 14:26] LABS: Erythrocyte Sedimentation Rate 7 MM/HR (0-20)
[2024-04-03 13:18] LABS: Alpha 1 Anti-trypsin 181 mg/dL (83-199)
== END 2024-04-02 13:21 | disposition home or self-care (01) ==
LOC: HO.LAB 13:20
PROVIDERS: PCP Internal Medicine; Visit Provider Hospitalist
DX: E88.01 Alpha-1-antitrypsin deficiency (principal); J45.41 Moderate persistent asthma with (acute) exacerbation; J30.9 Allergic rhinitis, unspecified
CPT/HCPCS: 36415; 80048; 82103; 85025; 85652

== ENCOUNTER 2024-05-28 09:44 | Outpatient (AMB) | payer OTHER, SELFPAY ==
[2024-05-28 09:51] VITALS: PULSE 73; O2SAT 98; BMI 26.9
--- NOTE | 2024-05-28 09:51 | A.OFFVIS_ITS ---
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 overall the patient has been doing well on room respiratory therapy. Recently she has had to use her rescue inhaler a couple times for chest tightness and shortness of breath. She has not required any prednisone and has not required any hospitalizations. The patient has been tolerating her off of 1 augmentation therapy without any significant side effects. She does feel tired 24-48 hours after the infusions. The symptoms do resolve. We did review her blood work from October 2020 demonstrating normal renal and liver function. Her inflammatory markers were normal and her off I level increased to 157. in addition to that her IgE levels were elevated consistent with allergies. At this time the patient with plan to continue the infusion therapy. Will plan to repeat her pulmonary function studies and laboratory data sometime the end of the year. 07/27/2023 the patient is here for pulmonary follow-up visit. She continues to do very well. The patient continues on the alpha-1 augmentation therapy on a weekly basis. After the infusions she is still experiencing symptoms of fatigue and also body ache. The symptoms usually last around 24 hours. She also snores per her . She has had a sleep study many years ago which was negative for any sleep apnea. Although if she continues to have daytime drowsiness with an elevated [place] score then over reasonable for her to get home sleep study. She does use a mouth guard. I did recommend she can talk to her dentist about getting hurt elastic type of mandibular device with mouth guards as a good option for snoring and also likely treat mild degree of sleep apnea. We talked about considering switching to a different agent, but, the patient is concerned about potential new side effects from a different preparation. At least do this when she knows where she is getting. She does get some relief when she does take Naprosyn after the infusion. I did recommend she can try taking magnesium for muscle spasms prior to the infusion if this is not helpful then just to take ibuprofen or Naprosyn pre infusion. Will go ahead and repeat her blood work for the next visit her last set of blood work From January 2023 were reassuring. 11/27/2023 the patient is here for sick visit. Apparently she has been sick now for about 5 days. She started getting sick on Sunday evening when she developed some chest tightness and cough. Noticing increasing wheezing. She started using her nebulizer more often. Then she became very fatigued. She did test negative for COVID-19. The patient started coughing and chest congestion with yellow phlegm. She feels still very tired. She did have a swab today which was negative for the flu RSV and also COVID. The patient does have some persistent coughing and also some wheezing on examination. Therefore will go ahead and treated for asthmatic bronchitis. No need for an x-ray at this time. If her symptoms do not respond to her therapy the patient will call for further evaluation. 03/21/2024 the patient is here for a pulmonary follow-up visit. Overall she is still well. She continues infusions on a weekly basis. Still having significant fatigue after the infusions where she needs to usually rest for the rest of the day. She still developing minimal rashes from the infusions. Is using premedications with Benadryl which helped some. She has never had to use her EpiPen. She will continue to monitor closely for any adverse effects or allergic reactions. I which point we would have to hold the infusions. The other poor products we can use but then the also be something new for her to tolerate. Therefore since she is doing okay right now nothing seems to be getting worse will continue with current plan. She will have blood work to make sure that she is tolerating the therapy well and will have to monitor closely her alpha-1 levels and also her liver function studies. The patient continues the Symbicort inhaler. She is exercising more regularly which is reassuring. Overall she feels better from health status standpoint. 05/28/2024 the patient is here for sick visit. The patient has been developing increasing chest tightness and shortness of breath while exercising. Important has to do with the change in the humidity and heat. She has been using Symbicort with partial response. She also has been using her rescue inhaler. She has been noticing increasing shortness of breath. Sometimes palpitations. Sometimes she also complains chest pressure. Fuyg-kv-izbssreo severity. Currently she is doing okay without any chest discomfort. She continues on the alpha-1 augmentation therapy. She does not on a weekly basis. She is still premedicated with Benadryl to minimize adverse effects. It appears to be working well. If the patient develops any worsening symptoms she will call. Otherwise she is going to undergo an EKG and also blood work in case her symptoms persist. Will go ahead and optimize her respiratory therapy by switching her inhaler to breztri. [facility] Medical History (Updated 05/28/24 @ 10:11 by Bryant Barraza MD) Dizziness Chronic allergic rhinitis Asthma Klhgx-9-baiwfexqipk deficiency Family History (Updated 06/12/21 @ 21:47 by Bryant Barraza MD) Other [place]-2-qhajtmhymgo deficiency Asthma Social History Patient Tobacco Use Status: Never used Tobacco Review of Systems Const Denies fever(s) and Denies night sweats ENT Denies change in voice, Denies lip swelling, Denies mouth pain, Reports nasal congestion, Reports nasal discharge, Reports post nasal drip and Denies tongue swelling Card Denies chest pain and Reports dyspnea on exertion Resp Denies change in phlegm color, Denies chest congestion, Reports cough, Reports dyspnea on exertion and Reports wheezing GI Denies abdominal pain Musc Reports as per HPI, Reports myalgias and Reports arthralgias Skin/Breast Reports rash Neuro Denies Neuro-related abnormal movements, Reports burning sensations and Reports paresthesias Psych Denies no additional complaints Khoa/Lymph Denies easy bleeding and Denies lymphadenopathy Aller/Immun Denies lip swelling, Denies tongue swelling and Reports wheezing Physical Exam Vital Signs: Last Vital Signs Pulse 73 05/28/24 09:51 Pulse Ox 98 05/28/24 09:51 Oxygen Delivery Method Room Air 05/28/24 09:51 BMI result Body Mass Index 26.9 Const General: alert and tired appearing HEENT Head: Yes normocephalic Eyes Pupils: Equal, round and reactive pupils present Neck Neck: Yes normal visual inspection, Yes full ROM and Yes no lymphadenopathy Chest Chest palpation & inspection: normal inspection of the chest Resp Effort & Inspection: normal respiratory effort and prolonged expiratory phase Auscultation: diminished lung sounds Cardio Rate: regular rate Rhythm: regular rhythm Heart sounds: S1 normal heart sound present and S2 normal heart sound present GI Palpation (GI): Soft to palpation and nontender Auscultation: normal bowel sounds Skin Other: General skin exam: petechiae Rashes: rashes noted (pleuritic patches and petichia) Neuro Cranial nerves: Yes Equal, round and reactive pupils present Assessment & Plan Assessment & Plan (1) Asthma: Code(s): J45.909 - Unspecified asthma, uncomplicated Category: Medical Qualifiers: Asthma complication type: uncomplicated Asthma persistence: persistent Asthma severity: moderate Qualified Code(s): J45.40 - Moderate persistent asthma, uncomplicated (2) Onxim-1-sjqujrwzyyf deficiency: Code(s): E88.01 - Vlqmf-7-edmabqvgrjk deficiency Category: Medical (3) Chronic allergic rhinitis: Code(s): J30.9 - Allergic rhinitis, unspecified Category: Medical Plan hold Symbicort start Breztri JOSEPH as needed Continue Singulair Continue alpha 1 antitrypsin aumentation therapy weekly. Monitor for worsening rash EKG Bloodwork F/U 6 months Orders: Orders 2 Phosphorus 05/28/24 J30.9 - Allergic rhinitis, unspecified, J45.40 - Moderate persistent asthma, uncomplicated, R42 - Dizziness and giddiness ECG 12 lead EKG 05/28/24 J30.9 - Allergic rhinitis, unspecified, J44.9 - Chronic obstructive pulmonary disease, unspecified, J45.40 - Moderate persistent asthma, uncomplicated, R42 - Dizziness and giddiness Complete Blood Count Auto Diff 05/28/24 J30.9 - Allergic rhinitis, unspecified, J45.40 - Moderate persistent asthma, uncomplicated, R42 - Dizziness and giddiness Basic Metabolic Panel 05/28/24 J30.9 - Allergic rhinitis, unspecified, J45.40 - Moderate persistent asthma, uncomplicated, R42 - Dizziness and giddiness Magnesium 05/28/24 J30.9 - Allergic rhinitis, unspecified, J45.40 - Moderate persistent asthma, uncomplicated, R42 - Dizziness and giddiness Medications: New 2 lwcewtsrdq-qarocvek-ydxcniccwl 160-9-4.8 mcg/actuation (Breztri Aerosphere) 2 inhalations inhalation BID 10.7 grams 11RF 30 days Coding Level of Care Code Est Pt Level 4 (45146) Diagnoses Moderate persistent asthma without complication J45.40 Asthma complication type: uncomplicated Asthma persistence: persistent Asthma severity: moderate Loygy-1-bffisepluua 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 Chronic allergic rhinitis J30.9 Time Spent (min) 16
== END 2024-05-28 10:16 | disposition home or self-care (01) ==
PROVIDERS: PCP Internal Medicine; Visit Provider Hospitalist
DX: J45.40 Moderate persistent asthma, uncomplicated (principal); E88.01 Alpha-1-antitrypsin deficiency; J30.9 Allergic rhinitis, unspecified
CPT/HCPCS: 99214

== ENCOUNTER → 2024-05-28 09:44 | Outpatient (BNVA) | payer OTHER, SELFPAY | PROVIDERS: PCP Internal Medicine; Visit Provider Hospitalist ==

== ENCOUNTER 2024-10-21 14:04 | Outpatient (AMB) | payer OTHER, SELFPAY ==
--- NOTE | 2024-10-21 14:06 | MHC.OFFVIS ---
Vital Signs 10/21/24 14:07 Height 5 ft 2 in Weight 147 lb 11.355 oz BMI 27.0 BP 108/60 Blood Pressure Location Rt brachial Position Sitting Pulse 89 Pulse Source Pulse Oximeter Pulse Oximetry (%) 99 Oxygen Delivery Method Room Air Intake Visit Reasons: Asthma Motor Transport Inspector Required: No Press Tender Incendiary Grenade: Press Tender Incendiary Grenade offered & declined Allergies No Known Allergies Allergy (Verified 10/21/24 14:13) Medication List - Last Reconciled 10/21/24 by Nova Hernandes LPN albuterol sulfate 90 mcg/actuation 2 inhalations inhalation Q6H PRN 30 days albuterol sulfate 2.5 mg (3 mL) inhalation Q6H PRN 30 days alpha-1 proteinase inhib.(hum) (Prolastin-C) mg IV benzonatate 200 mg PO BID PRN 30 days budesonide-formoterol 160-4.5 mcg/actuation 2 puffs inhalation BID 30 days tnkubytvqi-pxiomcpl-ippqyewgrw 160-9-4.8 mcg/actuation (Breztri Aerosphere) 2 inhalations inhalation BID 30 days codeine-guaifenesin 10-100 mg/5 mL 10 mL PO Q6H PRN 10 days epinephrine (EpiPen) 0.3 mg (0.3 mL) IM Q4H PRN fluticasone propionate 50 mcg/actuation (Flonase Allergy Relief) 1 - 2 sprays intranasal DAILY 30 days levocetirizine (Xyzal) 5 mg PO DAILY 30 days montelukast (Singulair) 10 mg PO BEDTIME 30 days nebulizers As directed nirmatrelvir-ritonavir 300 mg (150 mg x 2)-100 mg (Paxlovid) take TWO 150 mg tablets of nirmatrelvir with ONE 100 mg tablet of ritonavir twice daily for 5 days PO HPI Comments Details: The patient is a 44 y/o woman with known history asthma in addition to alpha-1 antitrypsin deficiency, MZ with levels of 70, currently receiving augmentation therapy. overall the patient has been doing well on room respiratory therapy. Recently she has had to use her rescue inhaler a couple times for chest tightness and shortness of breath. She has not required any prednisone and has not required any hospitalizations. The patient has been tolerating her off of 1 augmentation therapy without any significant side effects. She does feel tired 24-48 hours after the infusions. The symptoms do resolve. We did review her blood work from October 2020 demonstrating normal renal and liver function. Her inflammatory markers were normal and her off I level increased to 157. in addition to that her IgE levels were elevated consistent with allergies. At this time the patient with plan to continue the infusion therapy. Will plan to repeat her pulmonary function studies and laboratory data sometime the end of the year. 07/27/2023 the patient is here for pulmonary follow-up visit. She continues to do very well. The patient continues on the alpha-1 augmentation therapy on a weekly basis. After the infusions she is still experiencing symptoms of fatigue and also body ache. The symptoms usually last around 24 hours. She also snores per her . She has had a sleep study many years ago which was negative for any sleep apnea. Although if she continues to have daytime drowsiness with an elevated Crivitz score then over reasonable for her to get home sleep study. She does use a mouth guard. I did recommend she can talk to her dentist about getting hurt elastic type of mandibular device with mouth guards as a good option for snoring and also likely treat mild degree of sleep apnea. We talked about considering switching to a different agent, but, the patient is concerned about potential new side effects from a different preparation. At least do this when she knows where she is getting. She does get some relief when she does take Naprosyn after the infusion. I did recommend she can try taking magnesium for muscle spasms prior to the infusion if this is not helpful then just to take ibuprofen or Naprosyn pre infusion. Will go ahead and repeat her blood work for the next visit her last set of blood work From January 2023 were reassuring. 11/27/2023 the patient is here for sick visit. Apparently she has been sick now for about 5 days. She started getting sick on Sunday evening when she developed some chest tightness and cough. Noticing increasing wheezing. She started using her nebulizer more often. Then she became very fatigued. She did test negative for COVID-19. The patient started coughing and chest congestion with yellow phlegm. She feels still very tired. She did have a swab today which was negative for the flu RSV and also COVID. The patient does have some persistent coughing and also some wheezing on examination. Therefore will go ahead and treated for asthmatic bronchitis. No need for an x-ray at this time. If her symptoms do not respond to her therapy the patient will call for further evaluation. 03/21/2024 the patient is here for a pulmonary follow-up visit. Overall she is still well. She continues infusions on a weekly basis. Still having significant fatigue after the infusions where she needs to usually rest for the rest of the day. She still developing minimal rashes from the infusions. Is using premedications with Benadryl which helped some. She has never had to use her EpiPen. She will continue to monitor closely for any adverse effects or allergic reactions. I which point we would have to hold the infusions. The other poor products we can use but then the also be something new for her to tolerate. Therefore since she is doing okay right now nothing seems to be getting worse will continue with current plan. She will have blood work to make sure that she is tolerating the therapy well and will have to monitor closely her alpha-1 levels and also her liver function studies. The patient continues the Symbicort inhaler. She is exercising more regularly which is reassuring. Overall she feels better from health status standpoint. 05/28/2024 the patient is here for sick visit. The patient has been developing increasing chest tightness and shortness of breath while exercising. Important has to do with the change in the humidity and heat. She has been using Symbicort with partial response. She also has been using her rescue inhaler. She has been noticing increasing shortness of breath. Sometimes palpitations. Sometimes she also complains chest pressure. Muqg-mm-suzvabgr severity. Currently she is doing okay without any chest discomfort. She continues on the alpha-1 augmentation therapy. She does not on a weekly basis. She is still premedicated with Benadryl to minimize adverse effects. It appears to be working well. If the patient develops any worsening symptoms she will call. Otherwise she is going to undergo an EKG and also blood work in case her symptoms persist. Will go ahead and optimize her respiratory therapy by switching her inhaler to breztri. 10/21/2024 the patient is here for sick visit apparently she started developing worsening cough nonproductive in nature the last few days. Denied any fevers or chills. She did have a sore throat although is better at this time. She has been using inhalers has not noticed any worsening chest tightness or wheezing. Positive sick contacts. She is wearing a mask. The patient did have blood work back in 04/14/2024 demonstrating normal alpha-1 levels. Her last PFTs were also reassuring. Will have her come back in 6 months and at that point will repeat her PFTs and plan to do additional blood work. She for now she continues on the alpha-1 augmentation therapy on a weekly basis. [facility] Medical History (Updated 10/21/24 @ 19:27 by Bryant Barraza MD) Dizziness Chronic allergic rhinitis Asthma Nfdbl-1-ixvgrudfdcg deficiency Family History (Updated 06/12/21 @ 21:47 by Bryant Barraza MD) Other Fggsj-0-gxlibjugkyh deficiency Asthma Social History Patient Tobacco Use Status: Never used Tobacco Review of Systems Const Reports body aches, Reports fatigue, Denies fever(s) and Denies night sweats ENT Denies change in voice, Denies lip swelling, Denies mouth pain, Reports nasal congestion, Reports nasal discharge, Reports post nasal drip, Reports sore throat and Denies tongue swelling Card Denies chest pain and Reports dyspnea on exertion Resp Denies change in phlegm color, Denies chest congestion, Reports cough, Reports dyspnea on exertion and Denies wheezing GI Denies abdominal pain Musc Reports as per HPI, Reports myalgias and Reports arthralgias Skin/Breast Reports rash Neuro Denies Neuro-related abnormal movements, Reports burning sensations and Reports paresthesias Psych Denies no additional complaints Endo Reports fatigue Khoa/Lymph Denies easy bleeding and Denies lymphadenopathy Aller/Immun Denies lip swelling, Denies tongue swelling and Denies wheezing Physical Exam Vital Signs: Last Vital Signs Pulse 89 10/21/24 14:07 BP 108/60 10/21/24 14:07 Pulse Ox 99 10/21/24 14:07 Oxygen Delivery Method Room Air 10/21/24 14:07 BMI result Body Mass Index 27.0 Const General: alert and tired appearing HEENT Head: Yes normocephalic Eyes Pupils: Equal, round and reactive pupils present Neck Neck: Yes normal visual inspection, Yes full ROM and Yes no lymphadenopathy Chest Chest palpation & inspection: normal inspection of the chest Resp Effort & Inspection: normal respiratory effort and Actively coughing Auscultation: diminished lung sounds Cardio Rate: regular rate Rhythm: regular rhythm Heart sounds: S1 normal heart sound present and S2 normal heart sound present GI Palpation (GI): Soft to palpation and nontender Auscultation: normal bowel sounds Skin Other: General skin exam: petechiae Rashes: rashes noted (pleuritic patches and petichia) Neuro Cranial nerves: Yes Equal, round and reactive pupils present Assessment & Plan Assessment & Plan (1) Asthma: Code(s): J45.909 - Unspecified asthma, uncomplicated Category: Medical Qualifiers: Asthma complication type: uncomplicated Asthma persistence: persistent Asthma severity: moderate Qualified Code(s): J45.40 - Moderate persistent asthma, uncomplicated (2) Lgkda-3-qzqtejxwfhq deficiency: Code(s): E88.01 - Uvzrj-4-zmgyoosxkro deficiency Category: Medical (3) Chronic allergic rhinitis: Code(s): J30.9 - Allergic rhinitis, unspecified Category: Medical (4) URI (upper respiratory infection): Code(s): J06.9 - Acute upper respiratory infection, unspecified Category: Medical Qualifiers: URI type: acute nasopharyngitis (common cold) Qualified Code(s): J00 - Acute nasopharyngitis [common cold] Plan start Doxycycline medrol if worsens cough medicine Breztri JOSEPH as needed Continue Singulair Continue alpha 1 antitrypsin aumentation therapy weekly. Monitor for worsening rash PFTs Bloodwork F/U 6 months Orders: Orders PFT pulmonary function test 5 Months E88.01 - Xtdfo-1-belsbuxklcn deficiency Erythrocyte Sedimentation Rate 5 Months E88.01 - Htxxe-7-pjowwxdxjyj deficiency Alpha 1 Anti-trypsin 5 Months E88.01 - Btjxh-3-kzkwikpthlj deficiency Complete Blood Count Auto Diff 5 Months E88.01 - Hfwiq-1-gjsgaeedaxx deficiency Liver Panel 5 Months E88.01 - Uemyx-3-okybhmqxxyc deficiency Basic Metabolic Panel 5 Months E88.01 - Rjfgh-4-kpubzlghijt deficiency Medications: New methylprednisolone (Medrol (Lloyd)) PO PER PKG DIR 6 days 21 ea 0RF codeine-guaifenesin 10-100 mg/5 mL 10 mL PO Q6H 10 days PRN 300 mL 0RF cough doxycycline hyclate 100 mg PO BID 10 days 20 caps 0RF Refilled benzonatate 200 mg PO BID 30 days PRN 60 caps 0RF cough Coding Level of Care Code Est Pt Level 4 (44158) Diagnoses Moderate persistent asthma without complication J45.40 Asthma complication type: uncomplicated Asthma persistence: persistent Asthma severity: moderate Uppzm-0-gyupramnffm 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 Chronic allergic rhinitis J30.9 Acute nasopharyngitis J00 URI type: acute nasopharyngitis (common cold) Time Spent (min) 16
[2024-10-21 14:07] VITALS: BP 108/60; PULSE 89; O2SAT 99; BMI 27.0
== END 2024-10-21 14:34 | disposition home or self-care (01) ==
PROVIDERS: PCP Internal Medicine; Visit Provider Hospitalist
DX: J45.40 Moderate persistent asthma, uncomplicated (principal); E88.01 Alpha-1-antitrypsin deficiency; J30.9 Allergic rhinitis, unspecified; J00 Acute nasopharyngitis [common cold]
CPT/HCPCS: 99214

== ENCOUNTER → 2024-10-21 14:04 | Outpatient (BNVA) | payer OTHER, SELFPAY | PROVIDERS: PCP Internal Medicine; Visit Provider Hospitalist | DX: R21 Rash and other nonspecific skin eruption (principal); J45.909 Unspecified asthma, uncomplicated; E88.01 Alpha-1-antitrypsin deficiency; J44.9 Chronic obstructive pulmonary disease, unspecified; J45.41 Moderate persistent asthma with (acute) exacerbation; J30.9 Allergic rhinitis, unspecified ==

== ENCOUNTER 2025-03-25 07:51 | Outpatient (REF) | payer OTHER, SELFPAY ==
--- OUTSIDE RECORDS SUMMARY | 2025-03-25 07:54 | XMS_ITS | Encounter Summary ---
Author Organization [facility] Address [address] [place] [address] Care Team Providers Care Traffic Engineering Technician Name Role Phone Issac Kulkarni Primary Care Provider Lul Alvarado MD Unavailable Marta Franco MD Primary Care Provider Janessa hopkins Encounter Details Date Type Department Care Team Description 06/28/2018 Hospital Medical Records [address] [place] [id number] [place] [address] Social History Tobacco Use Types Packs/Day Years Used Date Smoking Tobacco: Never Smokeless Tobacco: Never Alcohol Use Standard Drinks/Week Comments No 0 (1 standard drink = 0.6 oz pur e alcohol) Sex Assigned at Date Recorded Not on file Job Start Date Occupation Industry Not on file Not on file Not on file documented as of this encounter Plan of Treatment Not on file documented as of this encounter Visit Diagnoses Not on filedocumented in this encounter Care Teams Traffic Engineering Technician Relationship Specialty Start Date End Date Issac Kulkarni PCP - General Internal Medicine 02/04/18 11/28/21 Marta Franco MD PCP - General Internal Medicine 11/29/21 Lul Joel MD Steel Box Toe Inserter Cardiovascular Disease 11/29/21 documented as of this encounter
--- OUTSIDE RECORDS SUMMARY | 2025-03-25 07:54 | XMS_ITS | Patient Health Record ---
Author Organization [facility] Address [address] [place] [address] Care Team Providers Care Mixologist Name Role Phone ROMEO VIVEROS Unavailable [phone] AMANDAANH MARINO Unavailable [phone] ALLERGIES No Known Allergies RESULTS Component Value Reference Range Notes CBC WITH AUTO DIFFERENTIAL Reviewed date:02/24/2025 08:58:51 AM Interpretation: Performing Lab: Notes/Report: WBC 5.1 4.8-10.8 K/mcL RBC 4.90 3.80-4.80 M/mcL Hemoglobin 14.6 11.5-16.0 g/dL Hematocrit 43.2 35.0-47.0 % MCV 88.0 79.0-98.0 FL MCH 29.7 27.0-32.0 pcg MCHC 33.8 32.0-37.0 g/dL RDW 12.6 11.0-15.0 % Platelets 327 130-400 K/mcL MPV 8.7 7.0-11.0 FL NRBC 0.0 <1.0 % NRBC Absolute 0.00 <0.10 K/mcL Neutrophils Relative 58.9 Lymphocytes Relative 31.6 Monocytes Relative 7.5 Eosinophils Relative 0.8 Basophils Relative 0.8 Immature Granulocytes Relative 0.4 Neutrophils Absolute 3.01 1.50-7.00 K/mcL Lymphocytes Absolute 1.61 1.00-5.00 K/mcL Monocytes Absolute 0.38 0.20-1.00 K/mcL Eosinophils Absolute 0.04 0.00-0.50 K/mcL Basophils Absolute 0.04 0.00-0.20 K/mcL Immature Granulocytes Absolute 0.02 0.00-0.03 K/mcL LIPID PANEL WITH REFLEX TO D IRECT LDL Reviewed date:02/24/2025 08:59:25 AM Interpretation: Performing Lab: Notes/Report: Cholesterol 184 0-200 mg/dL Triglycerides 47 0-150 mg/dL HDL 56 >=40 mg/dL LDL Calculated 119 0-100 mg/dL VLDL Cholesterol Jeffry 9.4 Non HDL Chol. (LDL+VLDL) 128 <145 mg/dL Chol/HDL Ratio 3.3 0.0-4.4 VITAMIN D 25 HYDROXY Reviewed date:02/24/2025 08:51:49 AM Interpretation: Performing Lab: Notes/Report: Vit D, 25-Hydroxy 44.1 30.0-80.0 ng/mL THYROID STIMULATING HORMONE Reviewed date:02/24/2025 08:51:49 AM Interpretation: Performing Lab: Notes/Report: TSH 1.85 0.40-4.00 mcIU/mL COMPREHENSIVE METABOLIC PANE L Reviewed date:02/24/2025 08:59:33 AM Interpretation: Performing Lab: Notes/Report: Sodium 136 133-145 mmol/L Potassium 4.3 3.5-5.5 mmol/L Chloride 105 96-110 mmol/L CO2 27 21-32 mmol/L Anion Gap 4 3-11 Glucose 87 70-100 mg/dL BUN 13 5-25 mg/dL Creatinine 0.62 0.50-1.10 mg/dL eGFR 113 >=60 mL/min/1.73m2 Calculati on based on the Chronic Kidney Disease Epidemiology Collaboration (CKD-EPI) equation refit without adjustment for race. BUN/Creatinine Ratio 21.0 Calcium 9.1 8.5-10.5 mg/dL AST (SGOT) 13 10-42 unit/L ALT (SGPT) 21 10-60 unit/L Alkaline Phosphatase 67 42-121 unit/L Total Protein 6.9 6.0-8.0 g/dL Albumin 3.9 3.2-5.0 g/dL Total Bilirubin 0.5 0.0-1.4 mg/dL HEMOGLOBIN A1C Reviewed date:02/24/2025 08:51:49 AM Interpretation: Performing Lab: Notes/Report: Hemoglobin A1C 5.1 <6.5 % Mean Bld Glu Estim. 100 MG MAMMO DIGITAL SCREENING W NUPUR BILAT Reviewed date:03/11/2025 10:57:46 AM Interpretation: Performing Lab: Notes/Report: Note See Note [facility], a member of [employer] Patient Name: ANDREW KIM Date of : 1980 Reason for Exam: screening Exam Date: 03/03/2025 [id number] EST Report Status: Final Ordering Provider: ANH HORNE PCP: ROMEO VIVEROS EXAM: SCREENING MAMMOGRAPHY, BILATERAL HISTORY: SCREENING. No additional history. COMPARISON: 01/11/24, 12/19/21, 12/27/22 TECHNIQUE: Synthesiz ed CC and MLO projections of each breast. Tomosynthesis of each breast in the CC and MLO projections. ADDITIONAL IMAGING: Craniocaudal view of each breast exaggerated toward the axilla using Tomosynthesis. Computer-aided detec tion was employed with the [employer] AI 3-D. TISSUE DENSITY: The breasts are heterogeneously dense, which may obscure small masses. (BI-RADS category C) FINDINGS: RIGHT BREAST: No suspicious mass. No suspicious calcification. No distortion. No additional suspicious right breast findings LEFT BREAST: No suspicious mass. No suspicious calcification. No distortion. No additional suspicious left breast findings IMPRESSION: No mammographic evid ence of malignancy. No suspicious interv al change. A negative mammogram in the presence of a clinically suspicious palpable abnormality does not preclude the possibility of malignancy or alter the indications for biopsy. ASSESSMENT: BI-RADS 1: NEGATIVE RECOMMENDATION(S): 1: Routine screening mammogram BILATERAL in 1 year. [facility] [address], [address] -------- FINAL REPOR T -------- Dictated By: Albert Romero Dictated Date: 03/11/2025 10:31 ET Assigned Physician: Albert Rajput Reviewed and Electronically Signed By: Albert Rajput Signed Date: 025 10:38 ET Workstation ID: [id number] Transcribed By: Self Edit Transcribed Date: 03/11/2025 10:31 ET URINALYSIS WITH REFLEX MICRO SCOPIC Reviewed date:02/24/2025 10:41:11 AM Interpretation: Performing Lab: Notes/Report: Specific [place] Urine 1.021 1.003-1.030 pH, Urine 7.0 5.0-8.0 pH Leukocytes, Urine Small Negative Nitrite, Urine Negative Negative Protein, Urine Trace <=Trace mg/dL Glucose, Urine Negative Negative mg/dL Ketones, Urine Negative Negative mg/dL Urobilinogen, Urine 0.2 0.2-1.0 mg/dL Bilirubin, Urine Negative Negative Blood, Urine Large Negative REASON FOR REFERRAL No Information MEDICATIONS Medication SIG (Take, Route, Frequency, Duration) Notes Start Date End Date Status Vitamin D 50 MCG (1999 UT) 1 capsule Ora lly Once a day Active Vitamin B Complex - as directed Orally Active Ashwagandha Active Prolastin-C 1000 MG/20ML as directed Intravenous Active Breo Ellipta 200-25 MCG/INH 1 puff Inhalation Once a day Active Flonase Allergy Relief 50 MCG/ACT 2 spray in each nostril Nasally twice a day Active IMMUNIZATIONS Vaccine Route Administration Date Status Comme nts influenza IM Intramuscular 08/22/2024 Administered SOCIAL HISTORY Tobacco Use: Social History Observation Description Date Details (start date - stop date) Never Smoker NA - NA Sex Assigned At : Social History Observation Description Sex Assigned At Unknown Tobacco Use/Smoking Question Answer Notes Are you a nonsmoker PROBLEMS Problem Type ICD Code Onset Dates Problem Status W/U Status Risk SNOMED Code Notes Problem Vitamin B12 deficiency anemia due to intrinsic factor deficiency (D51.0) Active confirmed 00944975 Problem Vitamin D deficiency, unspecified (E55.9) Active confirmed Vitamin D deficiency (53696415) Problem Zwkpg-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) Active confirmed Yksir-9-lomwzfa psi n deficiency (25217130) Problem Unspecified asthma, uncomplicated (J45.909) Active confirmed Uncomplicated asthma (disorder) (716305497) Problem Palpitations (R00.2) Active confirmed 70312447 Problem Encounter for screening for lipoid disorders (Z13.220) Active confirmed Lipid screening (645912833) Problem Palpitation (R00.2) Active confirmed 75012574 Problem Hyperlipidemia, unspecified hyperlipidemia type (E78.5) Active confirmed Hyperlipidaemia (35453216) Problem Anxiety (F41.9) Active confirmed 399966 02 Problem Adult general medical exam (Z00.00) Active confirmed Adult health examination (630916288) Problem Kidney stone (N20.0) Active confirmed Kidney stone (01278582) Problem Hypothyroidism, unspecified type (E03.9) Active confirmed Hypothyroidism (10141062) Problem Annual physical exam (Z00.00) Active confirmed 135190279 Problem Arthralgia, unspecified joint (M25.50) Active confirmed Joint pain (15017857) Problem Vitamin D deficiency (E55.9) Active confirmed 95171240 Problem Thyroid nodule (E04.1) Active confirmed 513191371 Problem Breast cancer screening by mammogram (Z12.31) Active confirmed Screening for malignant neoplasm of breast (767292518) Problem Tuberculosis screening (Z11.1) Active confirmed 820423723 Problem Diabetes mellitus screening (Z13.1) Active confirmed Diabetes m ellitus screening (683109144) Problem Encounter for vaccination (Z23) Active confirmed Requires vaccination (273400975) Problem Screening for thyroid disorder (Z13.29) Active confirmed 948616289 Problem Encounter for screening for endocrine disorder (Z13.) Active confirmed Endocrine/ metaboli c screening (441887347) VITAL SIGNS Heart Rate 87 /min 02/25/2025 Blood pressure diastolic 72 mm Hg 02/25/2025 Oximetry 98 % 02/25/2025 Height 62 in 02/25/2025 Blood pressure systolic 112 mm Hg 02/25/2025 Weight 148 lbs 02/25/2025 BMI 27.07 kg/m2 02/25/2025 Encounters Encounter Location Date Provider Diagnosis [facility] [address] [address] 08/22/2024 ANH BORHOT Palpitations R00.2 ; Hyperlipidemia, unspecified hyperlipidemia type E78.5 ; Krkpq-8-vvhiwryzkeg 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 ; Anxiety F41.9 and Encounter for immunization Z23 [facility] [address] [address] 02/25/2025 ANH BORHOT Hyperlipidemia, unspecified hyperlipidemia type E78.5 ; Annual physical exam Z00.00 ; Palpitations R00.2 ; Xzcrm-5-uuybbukwfdx 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 ; Anxiety F41.9 and Breast cancer screening by mammogram Z12.31 [address] [address] 04/01/2024 [facility] [address] [place] [address] 05/20/2024 ANH HORNE Tuberculosis screeni Z11.1 [facility] [address] [facility] [address] [place] [address] 08/22/2024 ROMEO VIVEROS Adult general medica l exam Z00.00 ; Encounter for screening for lipoid disorders Z13.220 ; Diabetes mellitus screening Z13.1 ; Vitamin D deficiency, unspecified E55.9 and Encounter for screening for endocrine disorder Z13.29 ASSESSMENTS Encounter Date Diagnosis Assessment Notes Treatment Notes Treatment Clinical Notes Section Notes 08/22/2024 Palpitations (ICD-10 - R00.2) Acute Concerns/Problem List: 08/22/2024 Thyroid ultrasound was unremarkable Palpitations have essentially resolved Mood is overall well Flu shot today Physical in the spring with labs Of note, some information is being carried forward from prior records for informational purposes only and is being cited so that efficiency, safety and quality of the patient's care is not compromised This note was prepared using voice recognition software and direct typing Please excuse inadvertent etl tester or typing errors, or uncorrected word substitutions Although every attempt has been made by the provider to proofread this document, occasional misspellings and typographical errors may still be present Due to the previous pandemic, and the use of personal protective equipment (PPE) This may decrease voice recognition accuracy Inadvertent etl tester errors may occur 08/22/2024 Hyperlipidemia, unspecified hyperlipidemia type (ICD-10 - E78.5) Acute Concerns/Problem List: 08/22/2024 Thyroid ultrasound was unremarkable Palpitations have essentially resolved Mood is overall well Flu shot today Physical in the spring with labs Of note, some information is being carried forward from prior records for informational purposes only and is being cited so that efficiency, safety and quality of the patient's care is not compromised This note was prepared using voice recognition software and direct typing Please excuse inadvertent etl tester or typing errors, or uncorrected word substitutions Although every attempt has been made by the provider to proofread this document, occasional misspellings and typographical errors may still be present Due to the previous pandemic, and the use of personal protective equipment (PPE) This may decrease voice recognition accuracy Inadvertent etl tester errors may occur 08/22/2024 Adult general medical exam (ICD-10 - Z00.00) 02/25/2025 Hyperlipidemia, unspecified hyperlipidemia type (ICD-10 - E78.5) Acute Concerns/Problem List: 02/25/2025 Updated labs stable and reviewed with patient Thyroid studies unremarkable Palpitations have essentially resolved ASCVD risk 0.5%, no statin recommended at this time. Recommended dietary modification to lower LDL cholesterol. Mood is overall well Cscope 2022, due 5 yr surveilance 2027 [facility] Mammogram last done in 12/2023, patient sent referral to get updated Mammogram Discussed myalgias following Prolastin infusions is common side effect, and patient will call if she needs stronger medication than OTC Alleve for her pain. Of note, some information is being carried forward from prior records for informational purposes only and is being cited so that efficiency, safety and quality of the patient's care is not compromised This note was prepared using voice recognition software and direct typing Please excuse inadvertent etl tester or typing errors, or uncorrected word substitutions Although every attempt has been made by the provider to proofread this document, occasional misspellings and typographical errors may still be present Due to the previous pandemic, and the use of personal protective equipment (PPE) This may decrease voice recognition accuracy Inadvertent etl tester errors may occur 05/20/2024 Tuberculosis screening (ICD-10 - Z11.1) 02/25/2025 Annual physical exam (ICD-10 - Z00.00) Acute Concerns/Problem List: 02/25/2025 Updated labs stable and reviewed with patient Thyroid studies unremarkable Palpitations have essentially resolved ASCVD risk 0.5%, no statin recommended at this time. Recommended dietary modification to lower LDL cholesterol. Mood is overall well Cscope 2022, due 5 yr surveilance 2027 [facility] Mammogram last done in 12/2023, patient sent referral to get updated Mammogram Discussed myalgias following Prolastin infusions is common side effect, and patient will call if she needs stronger medication than OTC Alleve for her pain. Of note, some information is being carried forward from prior records for informational purposes only and is being cited so that efficiency, safety and quality of the patient's care is not compromised This note was prepared using voice recognition software and direct typing Please excuse inadvertent etl tester or typing errors, or uncorrected word substitutions Although every attempt has been made by the provider to proofread this document, occasional misspellings and typographical errors may still be present Due to the previous pandemic, and the use of personal protective equipment (PPE) This may decrease voice recognition accuracy Inadvertent etl tester errors may occur 02/25/2025 Palpitations (ICD-10 - R00.2) Acute Concerns/Problem List: 02/25/2025 Updated labs stable and reviewed with patient Thyroid studies unremarkable Palpitations have essentially resolved ASCVD risk 0.5%, no statin recommended at this time. Recommended dietary modification to lower LDL cholesterol. Mood is overall well Cscope 2022, due 5 yr surveilance 2027 [facility] Mammogram last done in 12/2023, patient sent referral to get updated Mammogram Discussed myalgias following Prolastin infusions is common side effect, and patient will call if she needs stronger medication than OTC Alleve for her pain. Of note, some information is being carried forward from prior records for informational purposes only and is being cited so that efficiency, safety and quality of the patient's care is not compromised This note was prepared using voice recognition software and direct typing Please excuse inadvertent etl tester or typing errors, or uncorrected word substitutions Although every attempt has been made by the provider to proofread this document, occasional misspellings and typographical errors may still be present Due to the previous pandemic, and the use of personal protective equipment (PPE) This may decrease voice recognition accuracy Inadvertent etl tester errors may occur 08/22/2024 Encounter for screening for lipoid disorders (ICD-10 - Z13.220) 08/22/2024 Jvjmg-5-seifkutpwi n deficiency (ICD-10 - E88.01) Acute Concerns/Problem List: 08/22/2024 Thyroid ultrasound was unremarkable Palpitations have essentially resolved Mood is overall well Flu shot today Physical in the spring with labs Of note, some information is being carried forward from prior records for informational purposes only and is being cited so that efficiency, safety and quality of the patient's care is not compromised This note was prepared using voice recognition software and direct typing Please excuse inadvertent etl tester or typing errors, or uncorrected word substitutions Although every attempt has been made by the provider to proofread this document, occasional misspellings and typographical errors may still be present Due to the previous pandemic, and the use of personal protective equipment (PPE) This may decrease voice recognition accuracy Inadvertent etl tester errors may occur 02/25/2025 Bgpwh-4-vxcqqvmfce n deficiency (ICD-10 - E88.01) Acute Concerns/Problem List: 02/25/2025 Updated labs stable and reviewed with patient Thyroid studies unremarkable Palpitations have essentially resolved ASCVD risk 0.5%, no statin recommended at this time. Recommended dietary modification to lower LDL cholesterol. Mood is overall well Cscope 2022, due 5 yr surveilance 2027 [facility] Mammogram last done in 12/2023, patient sent referral to get updated Mammogram Discussed myalgias following Prolastin infusions is common side effect, and patient will call if she needs stronger medication than OTC Alleve for her pain. Of note, some information is being carried forward from prior records for informational purposes only and is being cited so that efficiency, safety and quality of the patient's care is not compromised This note was prepared using voice recognition software and direct typing Please excuse inadvertent etl tester or typing errors, or uncorrected word substitutions Although every attempt has been made by the provider to proofread this document, occasional misspellings and typographical errors may still be present Due to the previous pandemic, and the use of personal protective equipment (PPE) This may decrease voice recognition accuracy Inadvertent etl tester errors may occur 08/22/2024 Diabetes mellitus screening (ICD-10 - Z13.1) 08/22/2024 Anxiety (ICD-10 - F41.9) Acute Concerns/Problem List: 08/22/2024 Thyroid ultrasound was unremarkable Palpitations have essentially resolved Mood is overall well Flu shot today Physical in the spring with labs Of note, some information is being carried forward from prior records for informational purposes only and is being cited so that efficiency, safety and quality of the patient's care is not compromised This note was prepared using voice recognition software and direct typing Please excuse inadvertent etl tester or typing errors, or uncorrected word substitutions Although every attempt has been made by the provider to proofread this document, occasional misspellings and typographical errors may still be present Due to the previous pandemic, and the use of personal protective equipment (PPE) This may decrease voice recognition accuracy Inadvertent etl tester errors may occur 08/22/2024 Vitamin D deficiency, unspecified (ICD-10 - E55.9) 02/25/2025 Anxiety (ICD-10 - F41.9) Acute Concerns/Problem List: 02/25/2025 Updated labs stable and reviewed with patient Thyroid studies unremarkable Palpitations have essentially resolved ASCVD risk 0.5%, no statin recommended at this time. Recommended dietary modification to lower LDL cholesterol. Mood is overall well Cscope 2022, due 5 yr surveilance 2027 GI [facility] Mammogram last done in 12/2023, patient sent referral to get updated Mammogram Discussed myalgias following Prolastin infusions is common side effect, and patient will call if she needs stronger medication than OTC Alleve for her pain. Of note, some information is being carried forward from prior records for informational purposes only and is being cited so that efficiency, safety and quality of the patient's care is not compromised This note was prepared using voice recognition software and direct typing Please excuse inadvertent etl tester or typing errors, or uncorrected word substitutions Although every attempt has been made by the provider to proofread this document, occasional misspellings and typographical errors may still be present Due to the previous pandemic, and the use of personal protective equipment (PPE) This may decrease voice recognition accuracy Inadvertent etl tester errors may occur 08/22/2024 Encounter for immunization (ICD-10 - Z23) Acute Concerns/Problem List: 08/22/2024 Thyroid ultrasound was unremarkable Palpitations have essentially resolved Mood is overall well Flu shot today Physical in the spring with labs Of note, some information is being carried forward from prior records for informational purposes only and is being cited so that efficiency, safety and quality of the patient's care is not compromised This note was prepared using voice recognition software and direct typing Please excuse inadvertent etl tester or typing errors, or uncorrected word substitutions Although every attempt has been made by the provider to proofread this document, occasional misspellings and typographical errors may still be present Due to the previous pandemic, and the use of personal protective equipment (PPE) This may decrease voice recognition accuracy Inadvertent etl tester errors may occur 08/22/2024 Encounter for screening for endocrine disorder (ICD-10 - Z13.29) 02/25/2025 Breast cancer screening by mammogram (ICD-10 - Z12.31) Acute Concerns/Problem List: 02/25/2025 Updated labs stable and reviewed with patient Thyroid studies unremarkable Palpitations have essentially resolved ASCVD risk 0.5%, no statin recommended at this time. Recommended dietary modification to lower LDL cholesterol. Mood is overall well Cscope 2022, due 5 yr surveilance 2027 GI [facility] Mammogram last done in 12/2023, patient sent referral to get updated Mammogram Discussed myalgias following Prolastin infusions is common side effect, and patient will call if she needs stronger medication than OTC Alleve for her pain. Of note, some information is being carried forward from prior records for informational purposes only and is being cited so that efficiency, safety and quality of the patient's care is not compromised This note was prepared using voice recognition software and direct typing Please excuse inadvertent etl tester or typing errors, or uncorrected word substitutions Although every attempt has been made by the provider to proofread this document, occasional misspellings and typographical errors may still be present Due to the previous pandemic, and the use of personal protective equipment (PPE) This may decrease voice recognition accuracy Inadvertent etl tester errors may occur PLAN OF TREATMENT Pending Test Test Name Order Date Mammogram 02/25/2025 Hemoglobin A1c 09/19/2019 Vitamin B12 03/24/2021 ANTONIO w/Reflex 08/09/2022 Lyme Ab/Western Blot Reflex 08/09/2022 Lipid Panel 09/19/2019 Comp. Metabolic Panel (14) 09/19/2019 Basic Metabolic Panel (8) 03/24/2021 CBC 09/19/2019 CBC 03/24/2021 ESR 08/09/2022 Urinalysis 09/19/2019 Holter Test 10/10/2021 Holter Test 11/14/2021 EKG 10/10/2021 25OH VITAMIN D 02/05/2024 25OH VITAMIN D 02/19/2023 25OH VITAMIN D 03/24/2021 CBC (COMPLETE BLOOD COUNT) 01/28/2020 CBC (COMPLETE BLOOD COUNT) 02/19/2023 CBC (COMPLETE BLOOD COUNT) WITH DIFF 10/2024 COMPREHENSIVE METABOLIC PANEL 02/05/2024 COMPREHENSIVE METABOLIC PANEL 02/19/2023 COMPREHENSIVE METABOLIC PANEL 01/28/2020 CRP, HIGH SENSITIVITY 08/09/2022 LIPID PANEL 02/19/2023 LIPID PANEL 02/05/2024 MAGNESIUM 03/24/2021 RHEUMATOID FACTOR 08/09/2022 T4, TOTAL 10/10/2021 TSH 10/10/2021 TSH 02/05/2024 TSH 02/19/2023 TSH WITH REFLEX TO FT4 01/31/2021 XR L-Spine 2-3 Views 09/13/2023 LIPID PANEL, STANDARD 08/22/2024 COMPREHENSIVE METABOLIC PANEL 08/22/2024 CBC (INCLUDES DIFF/PLT) 08/22/2024 URINALYSIS, COMPLETE 08/22/2024 HEMOGLOBIN A1c 08/22/2024 TSH 08/22/2024 VITAMIN D,25-OH,TOTAL,IA 08/22/2024 COMPLETE URINALYSIS 02/19/2023 US Thyroid 02/05/2024 T-SPOT(R).TB 05/20/2024 CT Abdomen Pelvis W Cont 09/13/2023 Next Appt Details Provider Name:ANH HORNE, 09/01/2025 09:00:00 AM, [address], [address], [place], [address], Insurance Providers Payer Name Payer Address Payer Phone Subscriber Number Group Number Insured Name Patient Relationship to Insured Coverage Start Date Coverage End Date [employer] [address] [address] [place] [address] [id number] ANDREW KIM Self - patient is the insured MEDICATIONS ADMINISTERED Medication Instructions Date of Administration Dosage Notes vitamin b12 03/24/2021 1 mL Vitamin B-12 Injection given in left arm. Informed consent taken. Patient tolerated the procedure well and was discharged in stable condition.Basilia Barraza 03/24/2021 01:33:20 PM > MEDICAL (GENERAL) HISTORY Medical History History ICD Code asthma seasonal allergies alpha 1 antitryspin deficiency Surgical History Surgery Date(Month/Year) section
--- OUTSIDE RECORDS SUMMARY | 2025-03-25 07:54 | XMS_ITS | Encounter Summary ---
Author Organization [facility] Address [address] [place] [address] Care Team Providers Care Marketing Sales Manager Name Role Phone Issac Kulkarni Primary Care Provider Lul Alvarado MD Unavailable Marta Franco MD Primary Care Provider Janessa hopkins Encounter Details Date Type Department Care Team Description 06/15/2019 Orders Only Pulmonology - [address] [place] [phone] Bryant Barraza MD Pulmonary nodules (Primary Dx) Social History Tobacco Use Types Packs/Day Years [...] documented as of this encounter Visit Diagnoses Diagnosis Pulmonary nodules- Primary Other nonspecific abnormal finding of lung field documented in this encounter Care Teams Marketing Sales Manager Relationship Specialty Start Date End Date Issac Kulkarni PCP - General Internal Medicine 02/04/18 11/28/21 Marta Franco MD PCP - General Internal Medicine 11/29/21 Lul Joel MD Inside Outside Sales Representative Cardiovascular Disease 11/29/21 documented as of this encounter
--- OUTSIDE RECORDS SUMMARY | 2025-03-25 07:54 | XMS_ITS | Encounter Summary ---
[facility] Organization [facility] Address [address] [place] [address] Care Team Providers Care Aeronautical Engineering Technologist Name Role Phone Issac Kulkarni Primary Care Provider Lul Alvarado MD Unavailable Marta Franco MD Primary Care Provider Unavailabl e Reason for Visit * Reason Onset Date Comments refill request 05/26/2019 Encounter Details Date Type Department Care Team Description 05/26/2019 Refill Pulmonology - [place] [address] [facility] [address] [place] [phone] Bryant Barraza MD refill request Social History Tobacco Use Types Packs/Day Years Used Date Smoking Tobacco: Never Smokeless Tobacco: Never Alcohol Use Standard Drinks/Week Comments No 0 (1 standard drink = 0.6 oz pur e alcohol) Sex Assigned at Date Recorded Not on file Job Start Date Occupation Industry Not on file Not on file Not on file documented as of this encounter Miscellaneous Notes * Telephone Encounter - Marcella Barraza - 05/26/2019 10:16 AM EDT Patient would like script to be: E-PRESCRIBED/FAXED TO PHARMACY WHEN WAS THE PATIENT'S LAST APPOINTMENT WITH THE PRESCRIBING PROVIDER? 12/06/18 Does patient have an upcoming appointment? Yes 06/02/19 (THE MEDICATION REQUESTED IS ON THE MED LIST ABOVE) All of the medications requested were on the CURRENT MEDS list Did you check the Pharmacy information above?: YES Patient wants: 30 -day supply Is this a mail order prescription request ? NO Patients current insurance carrier is: Payor: [employer] / Plan: PPO $15 [employer] [id number] / Product Type: PPO [id number] documented in this encounter Plan of Treatment Not on file documented as of this encounter Visit Diagnoses Not on filedocumented in this encounter Care Teams Aeronautical Engineering Technologist Relationship Specialty Start Date End Date Issac Kulkarni PCP - General Internal Medicine 02/04/18 11/28/21 Marta Franco MD PCP - General Internal Medicine 11/29/21 Lul Joel MD Automation And Controls Supervisor Cardiovascular Disease 11/29/21 documented as of this encounter
--- OUTSIDE RECORDS SUMMARY | 2025-03-25 07:54 | XMS_ITS | Clinical Summary ---
Author Organization [address] [facility] Address [address] [place] [address] Phone Care Team Providers Care Fuel Truck Driver Name Role Phone Marta Franco MD Primary Care Provider [phone] Encounters Date Type Department Care Team Description 03/03/2025 1:58 PM EDT - 03/03/2025 11:59 PM EDT Hospital En[facility] [address] [place] [phone] Encounter for screening mammogram for malignant neoplasm of breast Discharge Disposition: Home or Self Care 02/25/2025 Telephone Gastroenterology - [address] [place] [phone] Bijan Eastman MD FAX from Last 3 Months Surgical History Surgery Date Site/Laterality Comments SECTION PROCEDURE: CA DELIVERY ONLY; COMMENT: x2 Medical History Medical History Date Comments Wkixe-[id number] deficien cy (CMS/HCC V24, CMS/HCC V28) DX:Biynn-7-[id number] defic iency ([facility]) Family History Medical History Relation Name Comments Leukemia Father Hypertension Mother Other: Other Son 1 alpha 1 antitry psin deficiency Relation Name Status Comments Brother Alive Father Mother Alive Son 1 Alive Son 2 Alive Social History Tobacco Use Types Packs/Day Years Used Date Smoking Tobacco: Never Smokeless Tobacco: Never Alcohol Use Standard Drinks/Week Comments No 0 (1 standard drink = 0.6 oz pur e alcohol) Comments No Sex and Gender Information Value Date Recorded Sex Assigned at Not on file Legal Sex Female 4:37 AM EST Gender Identity Not on file Sexual Orientation Not on file Obstetrics History Para Term AB IAB SAB Ectopic Multiple Livin g Live Births 2 Last Filed Vital Signs Vital Sign Reading Time Taken Comments Blood Pressure - - Pulse - - Temperature - - Respiratory Rate - - Oxygen Saturation - - Inhaled Oxygen Concentration - - Weight 65.8 kg (145 lb) 03/03/2025 2:17 PM EDT Height 157.5 cm (5' 2 ) 03/03/2025 2:17 PM EDT Body Mass Index 26.52 03/03/2025 2:17 PM EDT Plan of Treatment Health Maintenance Due Date Last Done Comments DTaP,Tdap,and Td Vaccines (1 - Tdap) 2000 Hepatitis A Vaccines (1 of 2 - Risk 2-dose series) 2000 Hepatitis B Vaccines (1 of 3 - 19+ 3-dose series) 2000 Cervical Cancer Screening: Pap Smear 2002 Depression Screening 10/29/2022 HIV Screening 10/29/2022 Hepatitis C Screening 10/29/2022 Social Influencers of Health Screening 10/29/2022 COVID-19 Vaccine ( season) 2024 11/03/2022, 09/30/2021, 03/18/2021, Additional history exists Influenza Vaccine (Season Ended) 2025 11/03/2022, 09/16/2021, 08/23/2018 Breast Cancer Screening 03/03/2027 03/03/2025 Cholesterol Screening (Lipid Panel) 02/20/2030 02/20/2025 Pneumococcal Vaccine: Pediatrics (0 to 5 Years) and At-Risk Patients (6 to 64 Years) Completed 01/26/2023 HIB Vaccines Aged Out No longer eligi ble based on patient's age to complete this topic HPV Vaccines Aged Out No longer eligi ble based on patient's age to complete this topic IPV Vaccines Aged Out No longer eligi ble based on patient's age to complete this topic MMR Vaccines Aged Out No longer eligi ble based on patient's age to complete this topic Meningococcal ACWY Vaccine Aged Out N o longer eligible based on patient's age to complete this topic Meningococcal B Vaccine Aged Out No l onger eligible based on patient's age to complete this topic RSV Immunization Patients Under 20 months Aged Out No longer eligible based on patient's age to complete this topic Varicella Vaccines Aged Out No longer eligible based on patient's age to complete this topic Procedures Procedure Name Priority Date/Time Associated Diagnosis Comments MG MAMMO DIGITAL SCREENING W JAGJIT BILAT Routine 03/03/2025 2:19 PM EDT Encounter for screening mammogram for malignant neoplasm of breast LAST URINE CULTURE TUBE Routine 02/20/2025 10:10 AM EDT Screening for diabetes mellitus Vitamin D deficiency disease Screening for thyroid disorder Screening for lipoid disorders EXTRA TUBES Routine 02/20/2025 10:10 AM EDT Screening for diabetes mellitus Vitamin D deficiency disease Screening for thyroid disorder Screening for lipoid disorders URINALYSIS WITH REFLEX MICROSCOPIC Routine 02/20/2025 9:27 AM EDT Screening for diabetes mellitus Vitamin D deficiency disease Screening for thyroid disorder Screening for lipoid disorders URINALYSIS WITH REFLEX MICROSCOPIC Routine 02/20/2025 9:27 AM EDT Screening for diabetes mellitus Vitamin D deficiency disease Screening for thyroid disorder Screening for lipoid disorders CBC WITH AUTO DIFFERENTIAL Routine 02/20/2025 9:22 AM EDT Screening for diabetes mellitus Vitamin D deficiency disease Screening for thyroid disorder Screening for lipoid disorders HEMOGLOBIN A1C Routine 02/20/2025 9:22 AM EDT Screening for diabetes mellitus Vitamin D deficiency disease Screening for thyroid disorder Screening for lipoid disorders VITAMIN D 25 HYDROXY Routine 02/20/2025 9:22 AM EDT Screening for diabetes mellitus Vitamin D deficiency disease Screening for thyroid disorder Screening for lipoid disorders COMPREHENSIVE METABOLIC PANEL Routine 02/20/2025 9:22 AM EDT Screening for diabetes mellitus Vitamin D deficiency disease Screening for thyroid disorder Screening for lipoid disorders THYROID STIMULATING HORMONE Routine 02/20/2025 9:22 AM EDT Screening for diabetes mellitus Vitamin D deficiency disease Screening for thyroid disorder Screening for lipoid disorders LIPID PANEL WITH REFLEX TO DIRECT LDL Routine 02/20/2025 9:22 AM EDT Screening for diabetes mellitus Vitamin D deficiency disease Screening for thyroid disorder Screening for lipoid disorders CBC AND DIFFERENTIAL Routine 02/20/2025 9:22 AM EDT Screening for diabetes mellitus Vitamin D deficiency disease Screening for thyroid disorder Screening for lipoid disorders from Last 3 Months Results * MG Mammo Digital Screening w Jagjit bilat (03/03/2025 2:19 PM EDT) Anatomical Region Laterality Modality Breast Bilateral Mammography 03/11/2025 10:3 1 AM EDT Impressions 03/11/2025 10:38 AM EDT No mammographic evidence of malignancy. ?? No suspicious interval change. A negative mammogram in the presence of a clinically suspicious palpable abnormality does not preclude the possibility of malignancy or alter the indications for biopsy. ASSESSMENT: ?? BI-RADS 1: NEGATIVE RECOMMENDATION(S): 1: Routine screening mammogram BILATERAL in 1 year. [facility] location[facility] [address], [address] -------- FINAL REPORT -------- Dictated By: Albert Rajput Dictated Date: 03/11/2025 10:31 ET Assigned Physician: Albert Rajput Reviewed and Electronically Signed By: Albert Rajput Signed Date: 03/11/2025 10:38 ET Workstation ID: [id number] Transcribed By: Self Edit Transcribed Date: 03/11/2025 10:31 ET Narrative 03/11/2025 10:38 AM EDT EXAM: ??SCREENING MAMMOGRAPHY, BILATERAL HISTORY: ??SCREENING. ??No additional history. COMPARISON: ??01/11/24, 12/19/21, 12/27/22 TECHNIQUE: Synthesized CC and MLO projections of each breast. ??Tomosynthesis of each breast in the CC and MLO projections. ADDITIONAL IMAGING: Craniocaudal view of each breast exaggerated toward the axilla using Tomosynthesis. Computer-aided detection was employed with the iCAD ??ProFound AI 3-D. TISSUE DENSITY: The breasts are heterogeneously dense, which may obscure small masses. (BI-RADS category C) FINDINGS: RIGHT BREAST: No suspicious mass. No suspicious calcification. No distortion. ?? No additional suspicious right breast findings LEFT BREAST: No suspicious mass. No suspicious calcification. No distortion. ?? No additional suspicious left breast findings Procedure Note Albert Rajput MD - 03/11/2025 EXAM: SCREENING MAMMOGRAPHY, BILATERAL HISTORY: SCREENING. No additional history. COMPARISON: 01/11/24, 12/19/21, 12/27/22 TECHNIQUE: Synthesized CC and MLO projections of each breast.Tomosynthesis of each breast in the CC and MLO projections. ADDITIONAL IMAGING: Craniocaudal view of each breast exaggerated towardthe axilla using Tomosynthesis. Computer-aided detection was employed with the [employer] AI 3-D. TISSUE DENSITY: The breasts are heterogeneously dense, which may obscuresmall masses. (BI-RADS category C) FINDINGS: RIGHT BREAST: No suspicious mass. No suspicious calcification. No distortion. Noadditional suspicious right breast findings LEFT BREAST: No suspicious mass. No suspicious calcification. No distortion. Noadditional suspicious left breast findings IMPRESSION: No mammographic evidence of malignancy. No suspicious interval change. A negative mammogram in the presence of a clinically suspicious palpableabnormality does not preclude the possibility of malignancy or alter theindications for biopsy. ASSESSMENT: BI-RADS 1: NEGATIVE RECOMMENDATION(S): 1: Routine screening mammogram BILATERAL in 1 year. [facility] location[facility] at [address], [address] -------- FINAL REPORT -------- Dictated By: Albert Rajput Dictated Date: 03/11/2025 10:31 ET Assigned Physician: Albert Rajput Reviewed and Electronically Signed By: Albert Rajput Signed Date: 03/11/2025 10:38 ET Workstation ID: [id number] Transcribed By: Self Edit Transcribed Date: 03/11/2025 10:31 ET us Florence Al NP IMG BI PROCEDURES Final Resul t * Last urine culture tube (02/20/2025 10:10 AM EDT) Extra Tube Hold for add-ons. 02/20/2025 12:01 PM T [facility] Comment:Auto resulted. Urine Urine specimen obtained by clean catch procedure / Unknown 02/20/2025 10:10 AM EDT 02/20/2025 10:28 AM EDT us Marta Franco MD LAB URINE ORDERABLES Final Resul t [facility] [address] [place] [address], * (ABNORMAL) Urinalysis with reflex microscopic (02/20/2025 9:27 AM EDT) Pathologist [facility] Specific [place] Urine 1.021 1.003 - 1.030 LAB URINALYSIS - AUTOMATED METHOD 02/20/2025 11:04 AM [facility] pH, Urine 7.0 5.0 - 8.0 pH LAB URINALYSIS - AUTOMATED METHOD 02/20/2025 11:04 AM [facility] Leukocytes, Urine Small(A) Negative LAB URINALYSIS - AUTOMATED METHOD 02/20/2025 11:04 AM [facility] Nitrite, Urine Negative Negative LAB URINALYSIS - AUTOMATED METHOD 02/20/2025 11:04 AM [facility] Protein, Urine Trace <=Trace mg/dL LAB URINALYSIS - AUTOMATED METHOD 02/20/2025 11:04 AM [facility] Glucose, Urine Negative Negative mg/dL LAB URINALYSIS - AUTOMATED METHOD 02/20/2025 11:04 AM [facility] Ketones, Urine Negative Negative mg/dL LAB URINALYSIS - AUTOMATED METHOD 02/20/2025 11:04 AM [facility] Urobilinogen , Urine 0.2 0.2 - 1.0 mg/dL LAB URINALYSIS - AUTOMATED METHOD 02/20/2025 11:04 AM [facility] Bilirubin, Urine Negative Negative LAB URINALYSIS - AUTOMATED METHOD 02/20/2025 11:04 AM [facility] Blood, Urine Large(A) Negative LAB URINALYSIS - AUTOMATED METHOD 02/20/2025 11:04 AM [facility] RBC, Urine 4.7(H) 0 - 4 /HPF LAB URINALYSIS - AUTOMATED METHOD 02/20/2025 11:04 AM [facility] WBC, Urine 10.0(H) 0 - 4 /HPF LAB URINALYSIS - AUTOMATED METHOD 02/20/2025 11:04 AM [facility] Squamous Epithelial, Urine 45 0 - 60 /LPF LAB URINALYSIS - AUTOMATED METHOD 02/20/2025 11:04 AM [facility] Non-Squamous Epithelial, Urine 2-5 TRANSITIONAL EPI /LPF LAB URINALYSIS - AUTOMATED METHOD 02/20/2025 11:04 AM [facility] Bacteria, Urine Few(A) Negative /HPF LAB URINALYSIS - AUTOMATED METHOD 02/20/2025 11:04 AM [facility] Hyaline Casts, Urine 2.8 0 - 3 /LPF LAB URINALYSIS - AUTOMATED METHOD 02/20/2025 11:04 AM [facility] Urine Urine specimen obtained by clean catch procedure / Unknown Non-blood Collection / Unknown 02/20/2025 9:27 AM EDT 02/20/2025 10:27 AM EDT us Marta Franco MD LAB URINE ORDERABLES Final Resul t [facility] [address] [place] [address], * (ABNORMAL) Lipid panel with reflex to direct LDL (02/20/2025 9:22 AM EDT) Cholesterol 184 0 - 200 mg/dL LAB CHEMISTRY METHOD 02/20/2025 12:17 PM EDT [facility] Triglycerides 47 0 - 150 mg/dL LAB CHEMISTRY METHOD 02/20/2025 12:17 PM EDT [facility] HDL 56 >=40 mg/dL LAB CHEMISTRY METHOD 02/20/2025 12:17 PM EDT [facility] LDL Calculated 119(H) 0 - 100 mg/dL LAB CHEMISTRY METHOD 02/20/2025 12:17 PM EDT [facility] VLDL Cholesterol Jeffry 9.4 mg/dL LAB CHEMISTRY METHOD 02/20/2025 12:17 PM EDT [facility] Non HDL Chol. (LDL+VLDL) 128 <145 mg/dL LAB CHEMISTRY METHOD 02/20/2025 12:17 PM EDT [facility] Chol/HDL Ratio 3.3 0.0 - 4.4 LAB CHEMISTRY METHOD 02/20/2025 12:17 PM T [facility] Blood Venous blood specimen / Unknown Venipuncture / Unknown 02/20/2025 9:22 AM EDT 02/20/2025 10:23 AM EDT us Marta Franco MD LAB BLOOD ORDERABLES Final Resul t [facility] [address] [place] [address], * (ABNORMAL) CBC auto differential (02/20/2025 9:22 AM EDT) WBC 5.1 4.8 - 10.8 K/mcL LAB HEMETOLOGY METHOD 02/20/2025 10:38 AM EDT [facility] RBC 4.90(H) 3.80 - 4.80 M/mcL LAB HEMETOLOGY METHOD 02/20/2025 10:38 AM [facility] Hemoglobin 14.6 11.5 - 16.0 g/dL LAB HEMETOLOGY METHOD 02/20/2025 10:38 AM [facility] Hematocrit 43.2 35.0 - 47.0 % LAB HEMETOLOGY METHOD 02/20/2025 10:38 AM [facility] MCV 88.0 79.0 - 98.0 FL LAB HEMETOLOGY METHOD 02/20/2025 10:38 AM [facility] MCH 29.7 27.0 - 32.0 pcg LAB HEMETOLOGY METHOD 02/20/2025 10:38 AM [facility] MCHC 33.8 32.0 - 37.0 g/dL LAB HEMETOLOGY METHOD 02/20/2025 10:38 AM [facility] RDW 12.6 11.0 - 15.0 % LAB HEMETOLOGY METHOD 02/20/2025 10:38 AM [facility] Platelets 327 130 - 400 K/mcL LAB HEMETOLOGY METHOD 02/20/2025 10:38 AM [facility] MPV 8.7 7.0 - 11.0 FL LAB HEMETOLOGY METHOD 02/20/2025 10:38 AM [facility] NRBC 0.0 <1.0 % LAB HEMETOLOGY METHOD 02/20/2025 10:38 AM [facility] NRBC Absolute 0.00 <0.10 K/mcL LAB HEMETOLOGY METHOD 02/20/2025 10:38 AM [facility] Neutrophils Relative 58.9 % LAB HEMETOLOGY METHOD 02/20/2025 10:38 AM [facility] Lymphocytes Relative 31.6 % LAB HEMETOLOGY METHOD 02/20/2025 10:38 AM [facility] Monocytes Relative 7.5 % LAB HEMETOLOGY METHOD 02/20/2025 10:38 AM EDT [facility] Eosinophils Relative 0.8 % LAB HEMETOLOGY METHOD 02/20/2025 10:38 AM EDT [facility] Basophils Relative 0.8 % LAB HEMETOLOGY METHOD 02/20/2025 10:38 AM EDT [facility] Immature Granulocytes Relative 0.4 % LAB HEMETOLOGY METHOD 02/20/2025 10:38 AM EDT [facility] Neutrophils Absolute 3.01 1.50 - 7.00 K/mcL LAB HEMETOLOGY METHOD 02/20/2025 10:38 AM EDT [facility] Lymphocytes Absolute 1.61 1.00 - 5.00 K/mcL LAB HEMETOLOGY METHOD 02/20/2025 10:38 AM EDT [facility] Monocytes Absolute 0.38 0.20 - 1.00 K/mcL LAB HEMETOLOGY METHOD 02/20/2025 10:38 AM EDT [facility] Eosinophils Absolute 0.04 0.00 - 0.50 K/mcL LAB HEMETOLOGY METHOD 02/20/2025 10:38 AM EDT [facility] Basophils Absolute 0.04 0.00 - 0.20 K/mcL LAB HEMETOLOGY METHOD 02/20/2025 10:38 AM EDT [facility] Immature Granulocytes Absolute 0.02 0.00 - 0.03 K/mcL LAB HEMETOLOGY METHOD 02/20/2025 10:38 AM EDT [facility] Blood Venous blood specimen / Unknown Venipuncture / Unknown 02/20/2025 9:22 AM EDT 02/20/2025 10:26 AM EDT us Marta Franco MD LAB BLOOD ORDERABLES Final Resul t [facility] [address] [place] [address], [place] [phone] * Vitamin D 25 hydroxy (02/20/2025 9:22 AM EDT) Pathologist [facility] Vit D, 25-Hydroxy 44.1 30.0 - 80.0 ng/mL LAB CHEMISTRY METHOD 02/20/2025 2:55 PM EDT [facility] Blood Venous blood specimen / Unknown Venipuncture / Unknown 02/20/2025 9:22 AM EDT 02/20/2025 10:23 AM EDT us Marta Franco MD LAB BLOOD ORDERABLES Final Resul t [facility] [address] [place] [address], [place] [phone] * Thyroid stimulating hormone (02/20/2025 9:22 AM EDT) [facility] TSH 1.85 0.40 - 4.00 mcIU/mL LAB CHEMISTRY METHOD 02/20/2025 2:55 PM EDT [facility] Blood Venous blood specimen / Unknown Venipuncture / Unknown 02/20/2025 9:22 AM EDT 02/20/2025 10:23 AM EDT us Marta Franco MD LAB BLOOD ORDERABLES Final Resul t [facility] [address] [place] [address], [place] [phone] * Hemoglobin A1c (02/20/2025 9:22 AM EDT) [facility] Hemoglobin A1C 5.1 <6.5 % LAB CHEMISTRY METHOD 02/20/2025 12:41 PM EDT [facility] Mean Bld Glu Estim. 100 mg/dL LAB CHEMISTRY METHOD 02/20/2025 12:41 PM EDT [facility] Blood Venous blood specimen / Unknown Venipuncture / Unknown 02/20/2025 9:22 AM EDT 02/20/2025 10:26 AM EDT Marta Franco MD LAB BLOOD ORDERABLES Final Resul t [facility] [address] [place] [address], * Comprehensive metabolic panel (02/20/2025 9:22 AM EDT) Sodium 136 133 - 145 mmol/L LAB CHEMISTRY METHOD 02/20/2025 12:17 PM [facility] Potassium 4.3 3.5 - 5.5 mmol/L LAB CHEMISTRY METHOD 02/20/2025 12:17 PM [facility] Chloride 105 96 - 110 mmol/L LAB CHEMISTRY METHOD 02/20/2025 12:17 PM [facility] CO2 27 21 - 32 mmol/L LAB CHEMISTRY METHOD 02/20/2025 12:17 PM [facility] Anion Gap 4 3 - 11 LAB CHEMISTRY METHOD 02/20/2025 12:17 PM [facility] Glucose 87 70 - 100 mg/dL LAB CHEMISTRY METHOD 02/20/2025 12:17 PM [facility] BUN 13 5 - 25 mg/dL LAB CHEMISTRY METHOD 02/20/2025 12:17 PM [facility] Creatinine 0.62 0.50 - 1.10 mg/dL LAB CHEMISTRY METHOD 02/20/2025 12:17 PM [facility] eGFR 113 >=60 mL/min/1. 73m2 LAB CHEMISTRY METHOD 02/20/2025 12:17 PM [facility] Comment:Calculation based on the??Chronic Kidney Disease Epidemiology Collaboration (CKD-EPI) equation refit??without adjustment for race. BUN/Creatinine Ratio 21.0 LAB CHEMISTRY METHOD 02/20/2025 12:17 PM T [facility] Calcium 9.1 8.5 - 10.5 mg/dL LAB CHEMISTRY METHOD 02/20/2025 12:17 PM [facility] AST (SGOT) 13 10 - 42 unit/L LAB CHEMISTRY METHOD 02/20/2025 12:17 PM [facility] ALT (SGPT) 21 10 - 60 unit/L LAB CHEMISTRY METHOD 02/20/2025 12:17 PM [facility] Alkaline Phosphatase 67 42 - 121 unit/L LAB CHEMISTRY METHOD 02/20/2025 12:17 PM [facility] Total Protein 6.9 6.0 - 8.0 g/dL LAB CHEMISTRY METHOD 02/20/2025 12:17 PM [facility] Albumin 3.9 3.2 - 5.0 g/dL LAB CHEMISTRY METHOD 02/20/2025 12:17 PM [facility] Total Bilirubin 0.5 0.0 - 1.4 mg/dL LAB CHEMISTRY METHOD 02/20/2025 12:17 PM [facility] Blood Venous blood specimen / Unknown Venipuncture / Unknown 02/20/2025 9:22 AM EDT 02/20/2025 10:23 AM EDT us Marta Franco MD LAB BLOOD ORDERABLES Final Resul t [facility] [address] [place] [address], from Last 3 Months Insurance [employer] Care Teams Fuel Truck Driver Relationship Specialty Start Date End Date Marta Franco MD [address] [place] [id number] PCP - General Internal Medicine 02/20/25
--- OUTSIDE RECORDS SUMMARY | 2025-03-25 07:54 | XMS_ITS | Encounter Summary ---
Author Organization [facility] Address [address] [place] [address] Care Team Providers Care Certified Teacher Assistant Name Role Phone Issac Kulkarni Primary Care Provider Lul Alvarado MD Unavailable Marta Franco MD Primary Care Provider Janessa e Encounter Details Date Type Department Care Team Description 06/09/2019 Orders Only Pulmonology - [address] [place] [address] Bryant Barraza MD Palpitations; Chest pain, unspecified type; Perennial allergic rhinitis; AAT (ftrpz-1-fqelnbxwodd) deficiency (HCC); Asthma-COPD overlap syndrome (HCC) Social History Tobacco Use Types Packs/Day Years [...] on file documented as of this encounter Procedures Procedure Name Priority Date/Time Associated Diagnosis Comments CAT SCAN OF CHEST NO CONTRAST Routine 06/06/2019 Palpitations Chest pain, unspecified type Perennial allergic rhinitis AAT (lbqfp-0-knbgyadacyi) deficiency (HCC) Asthma-COPD overlap syndrome (HCC) documented in this encounter Results * CAT SCAN OF CHEST NO CONTRAST (06/06/2019) Bryant Barraza MD CT SC[facility] documented in this encounter Visit Diagnoses Diagnosis Palpitations Chest pain, unspecified type Perennial allergic rhinitis Allergic rhinitis, cause unspecified AAT (qtxzk-1-wydqwkfdtwv) deficiency (HCC) Supjs-0-yrdzealzggo deficiency Asthma-COPD overlap syndrome (HCC) documented in this encounter Care Teams Certified Teacher Assistant Relationship Specialty Start Date End Date Issac Kulkarni PCP - General Internal Medicine 02/04/18 11/28/21 Marta Franco MD PCP - General Internal Medicine 11/29/21 Lul Joel MD Cold Working Inspector Cardiovascular Disease 11/29/21 documented as of this encounter
--- OUTSIDE RECORDS SUMMARY | 2025-03-25 07:55 | XMS_ITS ---
Author Organization [facility] Address [address] [place] [address] Care Team Providers Care Ground Crew Lines Person Name Role Phone VIVEROSROMEO VELASQUEZ Unavailable [phone] REASON FOR VISIT labs Encounters Encounter Location Date Provider Diagnosis [facility] [address] [address] 08/22/2024 ROMEO VIVEROS Adult general medica l exam Z00.00 ; Encounter for screening for lipoid disorders Z13.220 ; Diabetes mellitus screening Z13.1 ; Vitamin D deficiency, unspecified E55.9 and Encounter for screening for endocrine disorder Z13.29 ASSESSMENTS Encounter Date Diagnosis Assessment Notes Treatment Notes Treatment Clinical Notes Section Notes 08/22/2024 Adult general medical exam (ICD-10 - Z00.00) 08/22/2024 Encounter for screening for lipoid disorders (ICD-10 - Z13.220) 08/22/2024 Diabetes mellitus screening (ICD-10 - Z13.1) 08/22/2024 Vitamin D deficiency, unspecified (ICD-10 - E55.9) 08/22/2024 Encounter for screening for endocrine disorder (ICD-10 - Z13.29) PLAN OF TREATMENT Pending Test Test Name Order Date LIPID PANEL, STANDARD 08/22/2024 COMPREHENSIVE METABOLIC PANEL 08/22/2024 CBC (INCLUDES DIFF/PLT) 08/22/2024 URINALYSIS, COMPLETE 08/22/2024 HEMOGLOBIN A1c 08/22/2024 TSH 08/22/2024 VITAMIN D,25-OH,TOTAL,IA 08/22/2024 Next Appt Details Provider Name:ANH HORNE, 09/01/2025 09:00:00 AM, [address] [facility], [facility] [address], [place], [address], Progress Notes * RODOLFO KIMB:1980 (44 yo F)Acc No.[id number]:08/22/2024 Patient:??ANDREW KIM :1980?Age:44 Y?Sex:Fe male Address:[address] [facility], [place] [address] Subjective: * Chief Complaints: * ?Labs * Medical History:?? * Surgical History:?? * Hospitalization/Major Diagno stic Procedure:?? * Medications:?? Objective: Assessment: * Assessment: 1.??Adult general medical ex am - Z00.00??2.??Encounter for screening for lipoid disorders - Z13.220??3.??Diabetes mellitus screening - Z13.1??4.??Vitamin D deficiency, unspecified - E55.9??5.??Encounter for screening for endocrine disorder - Z13.29?? Plan: * Treatment: 2.??Encounter for screening for lipoid disorders?LAB: LIPID PANEL, STANDARD 3.??Diabetes mellitus screen ing?LAB: HEMOGLOBIN A1c 4.??Vitamin D deficiency, un specified?LAB: VITAMIN D,25-OH,TOTAL,IA 5.??Encounter for screening for endocrine disorder?LAB: TSH * Procedure Codes:?? * true * Date:??
--- OUTSIDE RECORDS SUMMARY | 2025-03-25 07:55 | XMS_ITS | Encounter Summary ---
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
--- OUTSIDE RECORDS SUMMARY | 2025-03-25 07:55 | XMS_ITS | Clinical Summary ---
Author Organization [facility] Address [address] [place] [address] Care Team Providers Care Medical Associate Name Role Phone Unavailable Primary Care Provider Unavailabl e Social History Tobacco Use Types Packs/Day Years Used Date Smoking Tobacco: Never Assessed Comments Unknown Sex and Gender Information Value Date Recorded Sex Assigned at Not on file Legal Sex Female 7:22 PM EST Gender Identity Not on file Sexual Orientation Not on file Plan of Treatment Health Maintenance Due Date Last Done Comments Hepatitis C Virus Screening 1980 HIV Screening 1994 DTaP/Tdap/Td Vaccines (1 - Tdap) 2000 Hepatitis B Vaccines (1 of 3 - 19+ 3-dose series) 2000 COVID-19 Vaccine (2023-2 5 season) 2024 HPV Vaccines Aged Out No longer eligi ble based on patient's age to complete this topic Pneumococcal Vaccine: Pediat augustus (0-5 Years) and At-Risk Patients (6 to 49 Years) Aged Out No longer eligible b ased on patient's age to complete this topic
--- OUTSIDE RECORDS SUMMARY | 2025-03-25 07:55 | XMS_ITS | Data Portability ---
Author Organization [place] - [facility], [facility] Address [address] [id number] [place] [address] Care Team Providers Care [employer] Supervisor Name Role Phone ROMEO VIVEROS Primary Care Provider Assessment No assessment recorded. 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 15 2024 11:40A M Dulce Maria Garcia APRN Not available Not available Not available Lab urinalys is, dipstick 2023 024 [email or web address] In-Office Order, Internal Use Only DO Not Attach Compendium DO Not Attach Compendium, Do Not Delete/merge, [id number] 01/11/2024 12:28:48 urinalys is, dipstick 2022 023 In-Office Order, Internal Use Only DO Not Attach Compendium DO Not Attach Compendium, Do Not Delete/merge, [id number] 12/27/2022 11:08:47 urinalys is, dipstick 2021 022 [email or web address] In-Office Order, Internal Use Only DO Not Attach Compendium DO Not Attach Compendium, Do Not Delete/merge, [id number] 12/16/2021 10:19:34 pap, IG + HPV [facility] [address] [place], [address] 12/20/2021 07:57:34 CT + NG DNA, PCR, unspecif ied specimen 2020 YANG [facility], [address] [place], [address] 12/10/2020 08:14:41 pregnanc y test, urine 2020 021 [email or web address] In-Office Order, Internal Use Only DO Not Attach Compendium DO Not Attach Compendium, Do Not Delete/merge, [id number] 12/08/2020 17:04:31 Referral None recorded . Procedures None recorded . Surgeries None recorded . Imaging None recorded . Medication Orders Mirena 21 mcg/24 hr (up to 8 years) 52 mg intraute rine device 2020 021 [id number], [address] [facility], [place], [address], 12/08/2020 17:04:31 Patient TargetsNo targets recorded. Patient Instructions Encounter Date Encounter Id Patient Instructions Last Modified By Organization Details Last Modified Time 12/16/2021 [id number] [facility]al [facility]alt [facility] screening completed and reviewed with patient. Negative findings. [email or web address] Not available 12/16/2021 10:09:39 12/27/2022 [id number] Behavioral healt h screening completed and reviewed with patient. Negative findings. [email or web address] Not available 12/27/2022 11:08:34 01/11/2024 [id number] Behavioral healt h screening completed and reviewed with patient. Negative findings. [email or web address] Not available 01/11/2024 12:21:40 Reason for Referral None Reported. Results Created Date Observation Date Name Description Value Unit Range Abnormal Flag Note LastModifiedBy Organization Detail LastModifiedTime 12/08/1912/08/2020 CT + NG DNA, PCR, unspe cifie d speci men neisseria gonorrhoeae RNA, tma Negati ve negati ve Not Available [facility] [address] [place], [address] 12/10/2020 08:14:40 12/08/19 21 12/08/2020 CT + NG DNA, PCR, unspe cifie d speci men chlamydia trachomatis RNA, tma Negati ve negati ve Not Available [facility] [address] [place], [address] 12/10/2020 08:14:40 12/08/19 21 12/08/2020 pregn marcela test, urine Result negati ve Not Available In-Office Order Internal Use Only DO Not Attach Compendium DO Not Attach Compendium, Do Not Delete/merge, [id number] 12/08/2020 10:33:45 12/16/19 22 12/16/2021 HPV MRNA E6/E7 HPV MRNA E6/E7 Negati ve negati ve APTIM A HPV assay detec ts 14 high risk HPV types (HPV 16,18 ,31,3 3,35, 39,45 ,51,5 2,56, 58,59 ,66,6 8). The assay is FDA appro mc for testi ng ThinP rep liqui d Pap vials but not FDA appro mc for detec ting HPV in SureP ath liqui d Pap speci mens. In-ho use valid ation has shown the assay can detec t all HPV types from this cox monettc e Not Available [facility] [address] [place], [address] 12/20/2021 07:57:32 12/16/19 22 12/16/2021 THINP REP PAP TEST (IMAG ER), HPV SCREE N, REFLE X HPV 16,18 /45 report Report Final Gynec ologi deandre Cytol ogy Repor t ----- ----- ----- ----- ----- ----- ----- ----- ----- ----- ----- ----- ThinP rep Pap Test, HPV Scree n, Refle x HPV Genot ype SPECI MEN ADEQU ACY: SATIS FACTO RY FOR EVALU ATION ; ENDOC ERVIC AL/TR ANSFO RMATI ON ZONE COMPO NENT PRESE NT. INTER PRETA TION: NEGAT ARLYN FOR INTRA EPITH ELIAL ANIRUDH Reese OR ODILON CAICEDO . Elect nahomi Marshall d: Violet Reynoso, [place] (ASCP ) ----- ----- ----- ----- ----- ----- ----- ----- ----- ----- ----- ----- CLINI DEANDRE YUSUFR LAMONT N: LMP: NG Speci men Sourc e: Cervi x, Endoc ervix HPV RESUL TS: HPV mRNA E6/E7 [id number] Appro mc: 12/18 Negat arlyn REF RANGE : Negat arlyn CPT Codes : 83716 ICD Codes : Z12.4 Not Available [facility] [address] [place], [address] 12/20/2021 07:57:34 12/16/19 22 12/16/2021 urina lysis , dipst ick Leukocytes Negati ve Not Available In-Office Order Internal Use Only DO Not Attach Compendium DO Not Attach Compendium, Do Not Delete/merge, 12/16/2021 09:09:46 12/16/19 22 12/16/2021 urina lysis , dipst ick Nitrite negati ve Not Available In-Office Order Internal Use Only DO Not Attach Compendium DO Not Attach Compendium, Do Not Delete/merge, 12/16/2021 09:09:46 12/16/19 22 12/16/2021 urina lysis , dipst ick Protein Negati ve Not Available In-Office Order Internal Use Only DO Not Attach Compendium DO Not Attach Compendium, Do Not Delete/merge, 12/16/2021 09:09:46 12/16/19 22 12/16/2021 urina lysis , dipst ick Glucose Negati ve Not Available In-Office Order Internal Use Only DO Not Attach Compendium DO Not Attach Compendium, Do Not Delete/merge, 12/16/2021 09:09:46 12/27/19 23 12/27/2022 urina lysis , dipst ick Leukocytes Negati ve Not Available In-Office Order Internal Use Only DO Not Attach Compendium DO Not Attach Compendium, Do Not Delete/merge, 12/25/2022 09:44:48 12/27/19 23 12/27/2022 urina lysis , dipst ick Nitrite negati ve Not Available In-Office Order Internal Use Only DO Not Attach Compendium DO Not Attach Compendium, Do Not Delete/merge, 12/25/2022 09:44:48 12/27/1912/27/2022 urina lysis , dipst ick Protein Trace Not Available In-Office Order Internal Use Only DO Not Attach Compendium DO Not Attach Compendium, Do Not Delete/merge, 12/25/2022 09:44:48 12/27/19 23 12/27/2022 urina lysis , dipst ick Glucose Negati ve Not Available In-Office Order Internal Use Only DO Not Attach Compendium DO Not Attach Compendium, Do Not Delete/merge, 12/25/2022 09:44:48 12/27/19 23 12/27/2022 urina lysis , dipst ick Appearance Clear Not Available In-Offi ce Order Internal Use Only DO Not Attach Compendium DO Not Attach Compendium, Do Not Delete/merge, 12/25/2022 09:44:48 12/27/1912/27/2022 urina lysis , dipst ick Color Yellow Not Available In-Office Order Internal Use Only DO Not Attach Compendium DO Not Attach Compendium, Do Not Delete/merge, 12/25/2022 09:44:48 01/11/20 24 01/11/2024 urina lysis , dipst ick Leukocytes Negati ve Not Available In-Office Order Internal Use Only DO Not Attach Compendium DO Not Attach Compendium, Do Not Delete/merge, 01/09/2024 11:13:32 01/11/20 24 01/11/2024 urina lysis , dipst ick Nitrite negati ve Not Available In-Office Order Internal Use Only DO Not Attach Compendium DO Not Attach Compendium, Do Not Delete/merge, 01/09/2024 11:13:32 01/11/20 24 01/11/2024 urina lysis , dipst ick Protein Trace Not Available In-Office Order Internal Use Only DO Not Attach Compendium DO Not Attach Compendium, Do Not Delete/merge, 01/09/2024 11:13:32 01/11/20 24 01/11/2024 urina lysis , dipst ick Glucose Negati ve Not Available In-Office Order Internal Use Only DO Not Attach Compendium DO Not Attach Compendium, Do Not Delete/merge, [id number] 01/09/2024 11:13:32 01/11/20 24 01/11/2024 urina lysis , dipst ick Appearance Clear Not Available In-Offi ce Order Internal Use Only DO Not Attach Compendium DO Not Attach Compendium, Do Not Delete/merge, [id number] 01/09/2024 11:13:32 01/11/20 24 01/11/2024 urina lysis , dipst ick Color Yellow Not Available In-Office Order Internal Use Only DO Not Attach Compendium DO Not Attach Compendium, Do Not Delete/merge, [id number] 01/09/2024 11:13:32 12/08/19 21 12/08/2020 [place], unlis lis RAD [address], [place], [address], 12/09/2020 20:43:40 12/08/19 21 12/08/2020 [place], unlis lis RAD [address], [place], [address], 12/09/2020 20:44:17 12/23/19 22 12/19/2021 MAMMO , scree katya, tomos ynthe sis, bilat eral HISTOR Y: Katina t is 41 years old and is seen for screen ing. FILMS COMPAR ED: No prior imagin g studie s are availa ble for compar sil. NUPUR STATEM ENT: Comput er-aid ed detect ion was utiliz ed by the radiol ogist in the interp retati on of this examin ation. 3D tomosy nthesi s digita l mammog raphic images were obtain ed using standa rd projec tions. MAMMOG DIANDRA FINDIN GS: The breast s are hetero geneou sly dense, which may obscur e small masses . (ACR BIRADS densit y Catego ry c) * No suspic ious masses , calcif icatio ns or other abnorm alitie s are seen in either breast . IMPRES HITESH: There is no mammog raphic eviden ce of malign marcela. Routin e follow -up mammog diandra in 1 year is recomm ended. The patien t will receiv e a lay summar y of the result s of this breast imagin g exam. Lay summar ies for mammog frida examin ations will also identi fy the patien t's person al breast tissue compos ition as requir ed by state law. BIRADS Catego ry 1: Negati ve Electr onical ly Signed By: ERIC LIM Electr onical ly Signed On: Dec 23, 2021 13:48 [facility] [address], [place], [address], 12/26/2021 13:38:59 01/03/2012/27/2022 MAMMO , scree katya, tomos ynthe sis, bilat eral HISTOR Y: Katina aragon is 42 years old and is seen for screen ing. FILMS COMPAR ED: The presen t examin ation has been compar ed to a prior imagin g study dated 2021. NUPUR STATEM ENT: Comput er-aid ed detect ion was utiliz ed by the radiol ogist in the interp retati on of this examin ation. 3D tomosy nthesi s digita l mammog raphic images were obtain ed using standa rd projec tions. MAMMOG DIANDRA FINDIN GS: The breast s are hetero geneou sly dense, which may obscur e small masses . (ACR BIRADS densit y Catego ry c) * No suspic ious masses , calcif icatio ns or other abnorm alitie s are seen in either breast . IMPRES HITESH: There is no mammog raphic eviden ce of malign marcela. Routin e follow -up mammog diandra in 1 year is recomm ended. The patien t will receiv e a lay summar y of the result s of this breast imagin g exam. Lay summar ies for mammog frida examin ations will also identi fy the patien t's person al breast tissue compos ition as requir ed by state law. BIRADS Catego ry 1: Negati ve Electr onical ly Signed By: ANA M ROBERTSON Electr onical ly Signed On: Jan 03, 2023 13:38 [email or web address] [facility] [place] [address] [facility] [address], [place], [address], 01/08/2023 08:42:47 01/14/20 24 01/11/2024 MAMMO , scree katya, tomos ynthe sis, bilat eral HISTOR Y: Katina aragon is 43 years old and is seen for screen ing. FILMS COMPAR ED: The preslucy t examin ation has been compar ed to prior imagin g studie s dated 2021 and 2022. NUPUR STATEMumtaz ENT: Comput er-aid ed detect ion was utiliz ed by the radiol ogist in the interp retati on of this examin ation. 3D tomosy nthesi s digita l mammog raphic images were obtain ed using standa rd projec tions. MAMMOG DIANDRA FINDIN GS: The breast s are hetero geneou sly dense, which may obscur e small masses . (ACR BIRADS densit y Catego ry c) * No suspic ious masses , calcif icatio ns or other abnorm alitie s are seen in either breast . IMPRES HITESH: There is no mammog raphic eviden ce of malign marcela. Routin e follow -up mammog diandra in 1 year is recomm ended. The katina aragon will receiv e a lay summar y of the result s of this breast imagin g exam. Lay summar ies for mammog frida examin ations will also identi fy the katina aragon's person al breast tissue compos ition as requir ed by state law. BIRADS Catego ry 1: Negati ve Electr onical ly Signed By: EILEEN MCKEON Electr onical ly Signed On: Jan 14, 2024 14:09 [facility] [place] [address] [facility] [address], [place], [address], 01/21/2024 18:18:16 Result Notes Documentation Provider Name and Address Organization Details Recorded Time Mammo, Screening, Tomosynthesis, Bilateral : 1c Charlene Keita null, [facility] 01/08/2023 08:42:47 Problems Name Problem SNOMED Code Status Onset Date Resolution Date Notes Provider Name and Address Organization Details Recorded Time Anemia 913354192 Active 2011 Not Available [facility] 5 06:23:01 Asthma 565503935 Active 2011 Not Available [facility] 5 06:23:01 Vaginitis and vulvovaginiti s Active JERAD CHAVARRIA MD [address], [place], [address] , [facility] 5 14:31:21 Menorrhagia 016758195 Active JERAD CHAVARRIA MD [address], [place], [address] , [facility] 5 10:29:12 Vaginitis 84168011 Active Aviva Barraza null, [facility] 5 12:26:45 Problem Notes None recorded. Procedures Surgical History Date Name Laterality Status Provider Name and Address Organization Details Recorded Time 3 Date of Last Mammogram [facility] 11:14:47 2 Date of Last [facility] 12/26/2022 11:15:52 1 IUD Removal & Insertion completed Arleth Marroquin MD [address], [place], [address], [facility] 12/11/2020 22:30:05 8 [id number] completed JERAD CHAVARRIA MD [address] [facility], [place], [address], [facility] 01/18/2018 09:40:15 8 [id number] completed JERAD CHAVARRIA MD [address], [place], [address], [facility] 01/18/2018 09:40:13 7 [id number] completed JERAD CHAVARRIA MD [address], [place], [address], [facility] 08/09/2017 10:29:52 6 [id number] completed JERAD CHAVARRIA MD [address], [place], [address], [facility] 11/17/2016 10:56:34 6 [id number] completed JERAD CHAVARRIA MD [address], [place], [address], [facility] 11/17/2016 10:56:41 6 [id number] completed JERAD CHAVARRIA MD [address], [place], [address], [facility] 11/17/2016 10:56:31 6 [id number] completed JERAD CHAVARRIA MD [address], [place], [address], [facility] 11/17/2016 10:56:36 5 [id number] completed JERAD CHAVARRIA MD [address], [place], [address], [facility] 11/16/2015 11:16:26 5 [id number] completed JERAD CHAVARRIA MD [address], [place], [address], [facility] 11/16/2015 11:16:26 5 [id number] completed JERAD CHAVARRIA MD [address], [place], [address], [facility] 11/16/2015 11:16:26 5 IUD Insert completed JERAD CHAVARRIA MD [address], [place], [address], [place] [facility] 10/08/2015 10:21:37 5 [id number] completed JERAD CHAVARRIA MD [address], [place], [address], [place] [facility] 09/23/2015 10:29:05 5 [id number] completed JERAD CHAVARRIA MD [address], [place], [address], [place] [facility] 09/23/2015 10:29:05 5 [id number] completed JERAD CHAVARRIA MD [address], [place], [address], [place] [facility] 09/23/2015 10:29:05 Caesarean Section completed Not Available [facility] 05/13/2015 14:57:07 Caesarean Section completed Not Available [facility] 05/13/2015 14:57:07 Imaging Results Imaging Date Name Status LastModified by Organiz ation Details LastModified Time 12/08/2020 [place], unlisted completed [email or web address] [address], [address], 12/09/2020 20:43:40 12/08/2020 [place], unlisted completed [address], [address], 12/09/2020 20:44:17 12/19/2021 MAMMO, screening, tomosynthesis, bilateral completed [facility] [address], [address], 12/26/2021 13:38:59 12/27/2022 MAMMO, screening, tomosynthesis, bilateral [facility] [address], [place], [address], 01/08/2023 08:42:47 01/11/2024 MAMMO, screening, tomosynthesis, bilateral completed [facility] [place] [address] [facility] [address], [place], [address], 01/21/2024 18:18:16 Procedure Notes None recorded. Medical Equipment None Reported. Allergies No known drug allergies Medications Name Sig Start Date Stop Date Status Note LastModified by Organization Details LastModified Time Mirena 21 mcg/24 hr (up to 8 years) 52 mg intrauter ine device Take 1 device by intraute rine route. 2020 active Not Available Not Available Not Avai lable fluticaso ne 250 mcg-salme terol 50 mcg/dose blistr powdr for inhalatio n active Not Available Not Available Not Available doxycycli ne hyclate 100 mg capsule 01/11 completed Not Available Not Available Not Available albuterol sulfate 2.5 mg/3 mL (0.083 %) solution for nebulizat ion active Not Available Not Available Not Available benzonata te 200 mg capsule 01/11 completed Not Available Not Available Not Available prednison e 20 mg tablet 01/11 completed Not Available Not Available Not Available propranol ol 10 mg tablet 12/15 completed Not Available Not Available Not Available Metrogel Vaginal 0.75 % (37.5 mg/5 gram) Insert 1 applicat orful every day by vaginal route for 5 days. 08/09 completed Not Available Not Available Not Available lorazepam 0.5 mg tablet 12/15 completed Not Available Not Available Not Available cabergoli ne 0.5 mg tablet TAKE 1 TABLET BY ORAL ROUTE 2 TIMES EVERY WEEK 2014 active Not Available Not Available Not Avai lable triamcino lone acetonide 0.025 % topical ointment 01/11 completed Not Available Not Available Not Available monteluka st 10 mg tablet Take 1 tablet every day by oral route. active Not Available Not Available No t Available codeine 10 mg-guaife nesin 100 mg/5 mL oral liquid 01/11 completed Not Available Not Available Not Available ergocalci ferol (vitamin D2) 1,250 mcg (50,000 unit) capsule 12/24 completed Not Available Not Available Not Available multivita min capsule active PRESCRIB ED ELSEWHER E Not Available Not Available Not Available Ventolin HFA 90 mcg/actua tion aerosol inhaler Inhale 2 puffs every 4 hours by inhalati on route. active Not Available Not Available No t Available Flonase 50 mcg/Actua tion nasl susp [place] 1 spray every day by intranas al route. active Not Available Not Available No t Available azelastin e 12/15 completed Not Available Not Available Not Available multivita min 12/24 completed Not Available Not Available Not Available Advair Diskus 01/19 completed Not Available Not Available Not Available budesonid e-formote rol HFA 160 mcg-4.5 mcg/actua tion aerosol inhaler active Not Available Not Available Not Available GaviLyte- G 236 gram-22.7 4 gram-6.74 gram-5.86 gram oral solution 12/24 completed Not Available Not Available Not Available Prolastin -C 01/19 completed Not Available Not Available Not Available Breo Ellipta 200 mcg-25 mcg/dose powder for inhalatio n active Not Available Not Available Not Available Aller-Tapan 50 mcg/actua tion nasal spray,tavo pension active Not Available Not Available Not Available Prolastin -C 1,000 mg (+/-)/20 mL intraveno us solution active Not Available Not Available Not Available Flowflex COVID-19 Antigen Home Test kit 12/24 completed Not Available Not Available Not Available Vitals Date Recorded Body height Provider Name an d Address Organization Details Last Updated DateTime 12/08/2020 157.48 cm Lorena Prabhakar [facility] 12/08/2020 12:18:57 Date Recorded Body height Body mass index (BMI) Body weight Systolic blood pressure Diastolic blood pressure Provider Name and Address Organization Details Last Updated DateTime 01/19/2021 157.48 cm 27.5 kg/m2 53114.01 g 106 mm[Hg] 60 mm[Hg] Nicole Tran [facility] 02/24/202 1 16:39:44 Date Recorded Body height Body mass index (BMI) Body weight Systolic blood pressure Diastolic blood pressure Provider Name and Address Organization Details Last Updated DateTime 12/16/2021 157.48 cm 24.8 kg/m2 07897.84 g 118 mm[Hg] 78 mm[Hg] Nicole Tran [facility] 2 10:06:39 Date Recorded Body height Body mass index (BMI) Body weight Systolic blood pressure Diastolic blood pressure Provider Name and Address Organization Details Last Updated DateTime 12/27/2022 157.48 cm 26.5 kg/m2 46278.89 g 102 mm[Hg] 70 mm[Hg] Mojgan Zelaya [facility] 3 10:40:01 Date Recorded Body height Body mass index (BMI) Body weight Systolic blood pressure Diastolic blood pressure Provider Name and Address Organization Details Last Updated DateTime 01/11/2024 157.48 cm 27.1 kg/m2 42048.67 g 110 mm[Hg] 70 mm[Hg] Mojganjammie Estevezphaneuf hospitalkellie [facility] 4 11:40:04 Social History Question Answer Notes LastModified by Organizat ion Details LastModified Time Tobacco Smoking Status Never Smoker Nancy shields [facility] 11/16/2015 11:10:21 What Is Your Level Of Alcohol Consumption? None [email or web address] Information not available 11/17/2016 Concerns About Meeting Basic Needs (food, Housing, Heat, Etc)? No Information not available 01/11/2024 What Is The Highest Grade Or Level Of School You Have Completed Or The Highest Degree You Have Received? [id number] [email or web address] Information not available 12/16/2021 Does Your Partner Physically Hurt You Or Threaten To Hurt You? No Information not available 11/03/2020 Has Your Partner Forced You To Have Sex Or Perform Sex Acts When You Did Not Want To? No Information not available 11/03/2020 Does Your Partner Insult, Scream At Or Talk Down To You? No Information not available 11/03/2020 Does Your Partner Control You Or Any Part Of Your Life? No Information not available 11/03/2020 Are You Afraid Of Your Partner? No 01-11-2024 Information not available 11/03/2020 Drug Use? No [email or web address] Information no t available 01/30/2019 Do You Feel Safe At Home? Yes Information not available 11/03/2020 What Was The Date Of Your Most Recent Tobacco Screening? 01/11/2024 [email or web address] Information not available 01/11/2024 General Stress Level Medium [email or web address] Information not available 01/11/2024 Do You Feel Stressed (tense, Restless, Nervous, Or Anxious, Or Unable To Sleep At Night)? [id number] Information not available 12/16/2021 Have You Recently Traveled Abroad? No Information not available 11/03/2020 Sex: Unknown Functional Status Question Answer Note LastModified by Organization D etails LastModified Time What is your exercise level? Moderate Information not available 11/03/2020 Mental Status None recorded. Family History Relationship Description Onset Age of this Age Resolved Age Notes LastModified by Organization Details LastModified Time Mother Hypertensive disorder [email or web address] Not available 2014 10:23:42 Father History of leukemia [email or web address] Not available 2023 10:49:36 Father Hypertensive disorder [email or web address] Not available 11/16 14:36:53 Notes:No FHx of breast, ovar mk, uterine, colon CA. Medical History Condition Response Defects or Inherited Disease Y Asthma Y Gynecological History Statement/Question Response Abnormal Pap N Infertility N Date of Last Mammogram 12/27/2022 Date of LMP 11/19/2022 IPV Screen Done 01/11/2024 Sexual Orientation heterosexual Current Control Method IUD Fibroids Y Age at First Child 21 Current Control Method IUD-Mirena Sexually Active? Y Sexual Problems? N Date of Last Pap Smear 12/16/2021 Last HPV Result Negative Obstetrics History GPAL:G 2 P 2 0 0 2 Type Value Full Term 2 Living 2 Total 2 Past Encounters Encounter ID Performer Location Encounter Start Date Encounter Closed Date Diagnosis/Indication Diagnosis SNOMED-CT Code Diagnosis ICD10 Code Diagnosis Note [id number] [facility] [address] [place] [address] 10/11/2012 00:00:00 [id number] [facility] [address] [place] [address] 09/17/2013 00:00:00 [id number] [facility] [address] [place] [address] 11/07/2013 00:00:00 [id number] [facility] [address] [place] [address] 09/24/2014 00:00:00 [id number] [facility] [address] [place] [address] 11/12/2014 00:00:00 [id number] JERAD CHAVARRIA MD [facility],[place] [address] 09/23/2015 10:00:14 09/23/2015 10:40:43 test negative 168982169 Z32.02 Vaginitis and vulvovaginitis 180488391 N76.0 Menorrhagia 298949554 N9 2.0 [id number] JERAD CHAVARRIA MD [facility],[place] [address] 10/07/2015 10:10:42 10/07/2015 10:31:12 Menorrhagia 737425494 N92.0 [id number] JERAD CHAVARRIA MD [facility],[place] [address] 10/08/2015 09:48:17 10/08/2015 10:20:27 test negative 275994336 Z32.02 Insertion of intrauterine contraceptive device 28639434 Z30.179 [id number] JERAD CHAVARRIA MD [facility] [address] 11/16/2015 10:28:57 11/16/2015 11:19:24 Gynecologic examination 89279362 Z01.419 Screening for malignant neoplasm of cervix 136499413 Z12.4 [id number] JERAD CHAVARRIA MD [facility] [address] 11/17/2016 10:26:26 11/17/2016 10:59:21 Gynecologic examination 73011828 Z01.419 Acute vaginitis 72027149 N76.0 Venereal d isease screening 137248037 Z11.3 [id number] JERAD CHAVARRIA MD [facility] [place] [address] 08/09/2017 10:04:09 08/09/2017 10:28:40 Irregular intermenstrual bleeding 18219273 N92.1 [id number] JERAD CHAVARRIA MD [facility] [place] [address] 08/14/2017 12:22:55 08/14/2017 13:03:01 Cyst of ovary 33991746 N83.332 [id number] JERAD CHAVARRIA MD [facility] [place] [address] 01/18/2018 09:11:28 01/18/2018 09:42:51 Gynecologic examination 24279230 Z01.419 Screening for malignant neoplasm of cervix 283257916 Z12.4 Z11.51 [id number] Arleth Marroqiun MD [facility] [place] [address] 01/28/2019 09:34:19 01/28/2019 10:07:11 Gynecologic examination 55641288 Z01.419 Annual exam. C/o discharge and vaginal odor. Affirm collected, will treat as indicated. Benign breast and ENGINEERING ASSOCIATE exam. Preventati ve measures, SBE discussed as below. Pap: up to date, NILM/HPV neg Dec 2017, due 2020 Mammo: start screening at age 40 as indicated DEXA: n/a Colonoscop y: start screening at age 51 as indicated Happy with Mirena IUD for contracept ion. Due for removal or exchange September 2020. RTO for annual or sooner as needed. Vaginal odor 556017106 N 89.8 [id number] RAINA SANCHEZ MD [facility] [place] [address] 05/15/2019 14:27:43 05/15/2019 14:53:19 Fibrocystic disease of breast 53120108 N60.19 will continue observing. If the problem persists will schedule for Mammograph y/US. [id number] Arleth Marroquin MD [facility] [place] [address] 11/03/2020 11:33:37 11/03/2020 12:36:07 Gynecologic examination 29669057 Z01.419 Annual exam. Having bleeding q2wks over the last few months, also more cramping, mostly on right side. Has Mirena since Sep 2015. Benign breast and ENGINEERING ASSOCIATE exam. Preventati ve measures, SBE discussed as below. Pap: up to date, NILM/HPV neg Dec 2017, due 2020 Mammo: start screening at age 40 as indicated DEXA: n/a Colonoscop y: start screening at age 45-50 as indicated RTO for Mirena removal/re -insertion , will do with pelvic US due to pain to r/o ovarian/ut erine issue. Depression screening 171 192545 Z13.31 Contraception care 57004 5005 Z30.478 [id number] Arleth Marroquin MD [facility] [place] [address] 12/08/2020 12:12:32 12/08/2020 13:00:02 Uses contraception 21974432 Z30.430 Here for removal/re -insertion of Mirena IUD. Uncomplica lis procedure, pt tolerated well. GC/CT collected today. Position documented with US today. RTO 6wks for IUD check. Venereal d isease screening 440039824 Z11.3 Right lowe r quadrant pain 358282243 R10.31 Pelvic US done for right sided pain today. Today, she states the pain is a bit higher than RLQ, and she was found to have a cyst in the kidney. She's following up with another physician regarding this soon. Findings reviewed with pt today: Right ovary simple cyst 2.3cm and hemorrhagi c cyst 3.3cm. Normal left ovary. No free fluid. She wasn't symptomati c with the transvagin al US, and given the location of her pain, I do not feel this is the cause of her pain. The ovarian cysts are benign. Pt reassured of the normal findings. Replacemen t of intrauterine contraceptive device 73169702 Z30.729 [id number] Arleth Marroquin MD [facility] [place] [address] 01/19/2021 16:10:52 01/19/2021 17:10:05 IUD check 930264575 Z30.431 S/p uncomplica lis Mirena IUD insertion for LARC presents for follow-up Happy with device Normal history and bleeding profile Strings visualized on exam RTO for routine exam or sooner as needed [id number] Arleth Marroquin MD [facility] [address] [place] [address] 12/16/2021 09:28:00 12/16/2021 10:26:08 Gynecologic examination 51216021 Z01.419 Annual exam. Happy with Mirena IUD. Frequent spotting/l ight bleeding, but not bothersome to her. Benign breast and ENGINEERING ASSOCIATE exam. Preventati ve measures, SBE discussed as below. Pap: collected with HPV cotest today Mammo: start screening now, will schedule in office DEXA: start screening age 66 as indicated Colonoscop y: start screening at age 45-50 as indicated RTO for annual or sooner prn. Screening for malignant neoplasm of cervix 539919938 Z12.4 Depression screening 171 887809 Z13.31 [id number] Arleth Marroquin MD [facility] [address] [place] [address] 12/27/2022 09:51:01 12/27/2022 11:14:03 Gynecologic examination 94079428 Z01.419 Annual exam. Happy with Mirena IUD. Irregular spotting/l ight bleeding, happy with device. Encouraged warm compresses for folliculit is and avoiding shaving. Benign breast and ENGINEERING ASSOCIATE exam. Preventati ve measures, SBE discussed as below. Pap: up to date, NILM/HPV neg Nov 2021, due 2024 Mammo: done in office today, results pending DEXA: start screening age 66 as indicated Colonoscop y: start screening at age 45 as indicated RTO for annual or sooner prn. Depression screening 171 804498 Z13.31 [id number] Arleth Marroquin MD [facility] [address] [place] [address] 01/11/2024 10:48:48 01/11/2024 12:33:44 Gynecologic examination 61248556 Z01.419 Annual exam. Happy with Mirena IUD. Irregular spotting/l ight bleeding, happy with device. Uterus is slightly deviated to right side, is likely why she has more cramping on right side, pt reassured. Benign breast and ENGINEERING ASSOCIATE exam. Preventati ve measures, SBE discussed as below. Pap: up to date, NILM/HPV neg Nov 2021, due 2024 Mammo: done in office today, results pending. Discussed screening US for dense breasts. DEXA: start screening age 65 as indicated Colonoscop y: start screening at age 45 as indicated RTO for annual or sooner prn. Depression screening 171 566061 Z13.31 Health Concerns Section Related Observation LastModified by Organization Detai ls LastModified Time None Recorded Concern Status LastModified by Organization Details LastModified Time None Recorded Advance Directives Directive None Recorded Payers Encounter Date Sequence Insurance Name Policy Number Policy Dhillon Covered Member ID Dhillon Member ID Guarantor Name 12/08/2020 1 [employer] (EPO) [id number] Gino Farrell [id number] Maria De Jesus Hoffmann 01/19/2021 1 [employer] (EPO) [id number] Gino Farrell [id number] Maria De Jesus Hoffmann 12/16/2021 1 [employer] (EPO) [id number] Gino Farrell [id number] Maria De Jesus Hoffmann 12/27/2022 1 [employer] (EPO) [id number] Gino Farrell [id number] Maria De Jesus Hoffmann 01/11/2024 1 [employer] (EPO) [id number] Gino Farrell [id number] Maria De Jesus Hoffmann Notes Date Note Type Note Provider Name and Address Organization Details Recorded Time 12/08/2020 text/html Here for exchang e of Mirena IUD. Was inserted September 2015. Also with right sided abdominal pain, getting pelvic US today. Arleth Marroquin MD 175 [facility], [address] [place] [address], [phone], [place] - [facility] 12/11/2020 22:36:08 01/19/2021 text/html IUD check. Remov al and insertion with US guidance. Some light bleeding day of procedure, nothing since. No pain. Arleth Marroquin MD 175 [facility], [address] [place] [address], [phone], [facility] 01/19/2021 17:08:29 12/16/2021 text/html [facility] Annual GYNReported bypatient.History: no gynecologic complaints; no change in interval history; Gets frequent very light bleeding/spotting with Mirena, but not bothered by it. Sometimes cramping when she ovulates. Otherwise no pain. Happy with IUD, wants to continue. Urinary symptoms:No hematuria; No incontinence Vulva:No genital lesion Vagina:Normal vaginal discharge Breast:No breast pain; No breast lump; No nipple discharge Current Contraception:Sati sfied with current contraception; Monogamous relationship; Intrauterine device (iud) Menopausal symptoms:No menopausal symptoms Psychological symptoms:No depression; No anxiety Preventive measures:Encourage self breast examination; Encourage regular exercise; Encourage no tobacco use; Encourage regular mammograms starting age 40; Followed with Q3 year pap smear and high risk HPV typing; Needs to schedule mammogram Arleth Marroquin MD [address], [address], [facility] 12/16/2021 10:21:48 12/27/2022 text/html [facility] Annual GYNReported bypatient.History: no gynecologic complaints; no change in interval history; Happy with IUD, irregular light spotting, one episode of heavier bleeding over the last year. Wants to continue. C/o yesterday noticing a bump in the labia, draining purulent material. Not very painful. Urinary symptoms:No hematuria; No incontinence Vulva:No genital lesion Vagina:Normal vaginal discharge Breast:No breast pain; No breast lump; No nipple discharge Current Contraception:Sati sfied with current contraception; Monogamous relationship; Intrauterine device (iud) Menopausal symptoms:No menopausal symptoms Psychological symptoms:No depression; No anxiety Preventive measures:Encourage self breast examination; Encourage regular exercise; Encourage no tobacco use; Encourage regular mammograms starting age 40; Followed with Q3 year pap smear and high risk HPV typing; Mammogram performed within the past year Arleth Marroquin MD [address] [facility], [address] [place] [address], [phone], [facility] 12/27/2022 11:12:01/11/2024 text/html [facility] Annual GYNReported bypatient.History: no gynecologic complaints; no change in interval history Urinary symptoms:No hematuria; No incontinence Vulva:No genital lesion Vagina:Normal vaginal discharge Breast:No breast pain; No breast lump; No nipple discharge Current Contraception:Sati sfied with current contraception; Monogamous relationship; Intrauterine device (iud) Menopausal symptoms:No menopausal symptoms Psychological symptoms:No depression; No anxiety Preventive measures:Encourage self breast examination; Encourage regular exercise; Encourage no tobacco use; Followed with pap smear and high risk HPV typing every 3 years; Encourage regular mammograms starting age 40; Mammogram performed within the past year Irregular light bleeding with IUD, happy with device.Sometimes has pain on the right side of pelvis, not severe. Arleth Marroquin MD [address] [place] [address], [place], [address], [place] - [facility] 01/11/2024 12:32:21 OBGyn Episode Ob Episode Information Episode Created Date Number of Fetuses Patient Bloodtype Patient rh Status Prepregnancy Weight lbs Domestic Partner Domestic Partner Phone Father Name Venetian Blind Tape Cutter Status 01/31/20 19 1 CLOSED Fetus Data First Name Last Name Admitted to NICU Weight (g) Sex Living Outcome Pediatric Complications Fetus ID Race Codes Race Delivery Type Full Term [id number] - Primary Vu Calculation Initial Vu Date Initial Exam Date Initial Exam Provider Initial Ultrasound Date Last Menstrual Period Date Ultra Sound Weeks Gestation 0 Eighteen To Twenty Week Vu Update Ultra Sound Date Fundal Height At Umbil Quickening Date Ultra Sound Latest Weeks Gestation Final Vu Confirmed By Final Vu Confirmed Date Final Vu Date Ultra Sound Latest Days Gestation 0 0 Menstrual History Last Menstrual Date Menses Monthly On Bcp Conception Prior Menses Frequency Hcg Plus Date Menarche Onset Age Delivery Information Delivery Date Delivery Type Labor Anesthesia Weeks Gestation Incision Type Labor Labor Length Hrs Delivered By Post Complications Tubal Sterilization Discharge Date Comments 1 Discharge Information Feeding Method Contraceptive Method Maternal HG B and HCT Levels Ob Episode Information Episode Created Date Number of Fetuses Patient Bloodtype Patient rh Status Prepregnancy Weight lbs Domestic Partner Domestic Partner Phone Father Name Venetian Blind Tape Cutter Status 01/31/20 19 1 CLOSED Fetus Data First Name Last Name Admitted to NICU Weight (g) Sex Living Outcome Pediatric Complications Fetus ID Race Codes Race Delivery Type Full Term [id number] - Repeat Vu Calculation Initial Vu Date Initial Exam Date Initial Exam Provider Initial Ultrasound Date Last Menstrual Period Date Ultra Sound Weeks Gestation 0 Eighteen To Twenty Week Vu Update Ultra Sound Date Fundal Height At Umbil Quickening Date Ultra Sound Latest Weeks Gestation Final Vu Confirmed By Final Vu Confirmed Date Final Vu Date Ultra Sound Latest Days Gestation 0 0 Menstrual History Last Menstrual Date Menses Monthly On Bcp Conception Prior Menses Frequency Hcg Plus Date Menarche Onset Age Delivery Information Delivery Date Delivery Type Labor Anesthesia Weeks Gestation Incision Type Labor Labor Length Hrs Delivered By Post Complications Tubal Sterilization Discharge Date Comments 6 Discharge Information Feeding Method Contraceptive Method Maternal HG B and HCT Levels
--- OUTSIDE RECORDS SUMMARY | 2025-03-25 07:55 | XMS_ITS | Encounter Summary ---
Author Organization [facility] Address [address] [place] [address] Care Team Providers Care Administrative Job Titles Name Role Phone Issac Kulkarni Primary Care Provider Lul Alvarado MD Unavailable Marta Franco MD Primary Care Provider Unavailabl e Reason for Visit * Reason Onset Date Comments other 07/23/2018 Encounter Details Date Type Department Care Team Description 07/23/2018 Telephone Pulmonology - [place] 175 [facility] [address] [place] [address] Bryant Barraza MD other Social History Tobacco Use Types Packs/Day Years Used Date Smoking Tobacco: Never Alcohol Use Standard Drinks/Week Comments No 0 (1 standard drink = 0.6 oz pur e alcohol) Sex Assigned at Date Recorded Not on file Job Start Date Occupation Industry Not on file Not on file Not on file documented as of this encounter Miscellaneous Notes * Telephone Encounter - Kath Ballard M.A. - 07/24/2018 4:16 PM EDT Prolastin C Is approved from 07/24/18 through 07/24/19 Fax from [facility] - fax [phone] phone- [phone] * Telephone Encounter - Kath Ballard M.A. - 07/24/2018 1:49 PM EDT Waiting for fax. * Telephone Encounter - Arely Colbertkirstin - 07/23/2018 1:55 PM EDT Prolasting c she sent was senty over for auth just wanted to let u know to keep an eye out for it [phone] ext [phone] documented in this encounter Plan of Treatment Not on file documented as of this encounter Visit Diagnoses Not on filedocumented in this encounter Care Teams Administrative Job Titles Relationship Specialty Start Date End Date Issac Kulkarni PCP - General Internal Medicine 02/04/18 11/28/21 Marta Franco MD PCP - General Internal Medicine 11/29/21 Lul Joel MD Plasma Table Operator Cardiovascular Disease 11/29/21 documented as of this encounter
--- OUTSIDE RECORDS SUMMARY | 2025-03-25 07:55 | XMS_ITS | Encounter Summary ---
Author Organization [facility] Address [address] [place] [address] Care Team Providers Care Chemistry Physics Teacher Name Role Phone Issac Kulkarni Primary Care Provider Lul Alvarado MD Unavailable Marta Franco MD Primary Care Provider Janessa hopkins Encounter Details Date Type Department Care Team Description 02/28/2019 Telephone Pulmonology - [place] 175 [facility] [address] [place] [phone] Bryant Barraza MD Social History Tobacco Use Types Packs/Day Years [...] encounter Miscellaneous Notes * Telephone Encounter - Julianne Hughes M.A. - 03/04/2019 3:33 PM EDT Faxed to Pharmacy. * Telephone Encounter - Nazanin Andersno - 02/28/2019 3:23 PM EDT Alpha1-Proteinase Inhibitor (PROLASTIN IV) Pharmacy called regarding this medication and needs a double dose PRN requires a prescription. Pharmacy sent this medication request last week. Please check into and fax to the pharmacy. Pharmacy would like a call back. documented in this encounter Plan of Treatment Not on file documented as of this encounter Visit Diagnoses Not on filedocumented in this encounter Care Teams Chemistry Physics Teacher Relationship Specialty Start Date End Date Issac Kulkarni PCP - General Internal Medicine 02/04/18 11/28/21 Marta Franco MD PCP - General Internal Medicine 11/29/21 Lul Joel MD Managing Member Cardiovascular Disease 11/29/21 documented as of this encounter
--- OUTSIDE RECORDS SUMMARY | 2025-03-25 07:55 | XMS_ITS ---
Author Name [facility] Organization Unknown Encounters Encounter Type Encounter Reason Primary Diagnosis Location Date Ambulatory Encntr screen mammogram for malignant neoplasm of breast Encntr screen mammogram for malignant neoplasm of breast [facility] 01/11/2024 Ambulatory Encntr screen mammogram for malignant neoplasm of breast Encntr screen mammogram for malignant neoplasm of breast [facility] 01/11/2024 Ambulatory [facility] 12/27/2022 Ambulatory [facility] 12/27/2022 Ambulatory [facility] 12/19/2021 Ambulatory [facility] 12/16/2021 Care Team Organization Name Specialty Phone Email Start Date End Da te [facility] 12/28/2021 [facility] 12/16/2021 12/19/2021
--- OUTSIDE RECORDS SUMMARY | 2025-03-25 07:55 | XMS_ITS | Encounter Summary ---
Author Organization [facility] Address [address] [place] [address] Care Team Providers Care Undertaker Helper Name Role Phone Issac Kulkarni Primary Care Provider Lul Alvarado MD Unavailable Marta Franco MD Primary Care Provider Unavailzander e Encounter Details Date Type Department Care Team Description 02/28/2018 [facility] Medical Records [address] [place] [id number] Senthil Davila DO Social History Tobacco Use Types Packs/Day Years [...] Procedure Name Priority Date/Time Associated Diagnosis Comments OUTSIDE ECHO Routine 02/28/2018 documented in this encounter Results * OUTSIDE ECHO (02/28/2018) Provider Abstract CARDIOLOGY documented in this encounter Visit Diagnoses Not on filedocumented in this encounter Care Teams Undertaker Helper Relationship Specialty Start Date End Date Issac Kulkarni PCP - General Internal Medicine 02/04/18 11/28/21 Marta Franco MD PCP - General Internal Medicine 11/29/21 Lul Joel MD [employer] Crewmember Cardiovascular Disease 11/29/21 documented as of this encounter
--- OUTSIDE RECORDS SUMMARY | 2025-03-25 07:55 | XMS_ITS | Encounter Summary ---
Author Organization [facility] Address [address] [place] [address] Care Team Providers Care Residential Care Officer Name Role Phone Issac Kulkarni Primary Care Provider uLl Alvarado MD Unavailable Marta Franco MD Primary Care Provider Unavailzander e Encounter Details Date Type Department Care Team Description 10/10/2021 SCAN Medical Records [address] [place] [address] Marta Franco MD Social History Tobacco Use Types Packs/Day [...] Name Priority Date/Time Associated Diagnosis Comments OUTSIDE EKG Routine 10/10/2021 documented in this encounter Results * OUTSIDE EKG (10/10/2021) Provider Default CARDIOLOGY documented in this encounter Visit Diagnoses Not on filedocumented in this encounter Care Teams Residential Care Officer Relationship Specialty Start Date End Date Issac Kulkarni PCP - General Internal Medicine 02/04/18 11/28/21 Marta Franco MD PCP - General Internal Medicine 11/29/21 Lul Joel MD Staff Nurse Anesthetist Cardiovascular Disease 11/29/21 documented as of this encounter
--- OUTSIDE RECORDS SUMMARY | 2025-03-25 07:55 | XMS_ITS | Encounter Summary ---
Author Organization [facility] Address [address] [place] [address] Care Team Providers Care Founder Chairman And Chief Creative Officer Name Role Phone Issac Kulkarni Primary Care Provider Lul Alvarado MD Unavailable Marta Franco MD Primary Care Provider Janessa hopkins Encounter Details Date Type Department Care Team Description 03/01/2021 Release of Information Medical Records [address] [place] [id number] [place] [address] Social History Tobacco Use Types Packs/Day Years [...] on filedocumented in this encounter Care Teams Founder Chairman And Chief Creative Officer Relationship Specialty Start Date End Date Issac Kulkarni PCP - General Internal Medicine 02/04/18 11/28/21 Marta Franco MD PCP - General Internal Medicine 11/29/21 Lul Joel MD Carpenter Labor Supervisor Cardiovascular Disease 11/29/21 documented as of this encounter
--- OUTSIDE RECORDS SUMMARY | 2025-03-25 07:55 | XMS_ITS | Encounter Summary ---
Author Organization [facility] Address [address] [place] [address] Care Team Providers Care Secondary Market Manager Name Role Phone Issac Kulkarni Primary Care Provider Lul Alvarado MD Unavailable Marta Franco MD Primary Care Provider Unavailzander hopkins Encounter Details Date Type Department Care Team Description 10/10/2021 Claim Technician Report Medical Records [address] [place] [id number] Marta Franoc MD Social History Tobacco Use Types Packs/Day [...] on filedocumented in this encounter Care Teams Secondary Market Manager Relationship Specialty Start Date End Date Issac Kulkarni PCP - General Internal Medicine 02/04/18 11/28/21 Marta Franco MD PCP - General Internal Medicine 11/29/21 Lul Joel MD Welcome Center Attendant Cardiovascular Disease 11/29/21 documented as of this encounter
--- OUTSIDE RECORDS SUMMARY | 2025-03-25 07:55 | XMS_ITS | Encounter Summary ---
Author Organization [facility] Address [address] [place] [address] Care Team Providers Care Internet Marketing Director Name Role Phone Issac Kulkarni Primary Care Provider Lul Alvarado MD Unavailable Marta Franco MD Primary Care Provider Unavailzander e Encounter Details Date Type Department Care Team Description 03/24/2021 SCAN Medical Records [address] [place] [address] Marta Franco MD Social History Tobacco Use [...] Name Priority Date/Time Associated Diagnosis Comments OUTSIDE LAB Routine 03/24/2021 documented in this encounter Results * OUTSIDE LAB (03/24/2021) Provider Default LAB documented in this encounter Visit Diagnoses Not on filedocumented in this encounter Care Teams Internet Marketing Director Relationship Specialty Start Date End Date Issac Kulkarni PCP - General Internal Medicine 02/04/18 11/28/21 Marta Franco MD PCP - General Internal Medicine 11/29/21 Lul Joel MD Computer Assembler Cardiovascular Disease 11/29/21 documented as of this encounter
--- OUTSIDE RECORDS SUMMARY | 2025-03-25 07:55 | XMS_ITS | Encounter Summary ---
Author Organization [facility] Address [address] [place] [address] Care Team Providers Care Economics Department Chair Name Role Phone Issac Kulkarni Primary Care Provider Lul Alvarado MD Unavailable Marta Franco MD Primary Care Provider Janessa hopkins Encounter Details Date Type Department Care Team Description 11/15/2021 Orders Only Cardio PVCA Diag Testing 101 [address] [facility] [address] [place] [id number] Marta Franco MD Palpitations (Primary Dx) Social History Tobacco Use Types [...] on file documented as of this encounter Results * ECG HOLTER MONITOR, REVIEW/INTERP (12/06/2021) Marta Franco MD CARDIOLOGY PV[facility] documented in this encounter Visit Diagnoses Diagnosis Palpitations- Primary documented in this encounter Care Teams Economics Department Chair Relationship Specialty Start Date End Date Issac Kulkarni PCP - General Internal Medicine 02/04/18 11/28/21 Marta Franco MD PCP - General Internal Medicine 11/29/21 Lul Joel MD Door To Door Salesman Cardiovascular Disease 11/29/21 documented as of this encounter
--- OUTSIDE RECORDS SUMMARY | 2025-03-25 07:55 | XMS_ITS | Encounter Summary ---
Author Organization [facility] Address [address] [place] [address] Care Team Providers Care Breaker Off Name Role Phone Issac Kulkarni Primary Care Provider Lul Alvarado MD Unavailable Marta Franco MD Primary Care Provider Janessa hopkins Encounter Details Date Type Department Care Team Description 02/21/2021 Orders Only Cardio PVCA Diag Testing 101 300 [facility] [address] [place] [id number] Community, Pcp Palpitations (Primary Dx) Social History Tobacco Use [...] encounter Results * ECG HOLTER MONITOR, REVIEW/INTERP (03/15/2021) Pcp Community CARDIOLOGY [facility] documented in this encounter Visit Diagnoses Diagnosis Palpitations- Primary documented in this encounter Care Teams Breaker Off Relationship Specialty Start Date End Date Issac Kulkarni PCP - General Internal Medicine 02/04/18 11/28/21 Marta Franco MD PCP - General Internal Medicine 11/29/21 Lul Joel MD Amr Physician Cardiovascular Disease 11/29/21 documented as of this encounter
--- OUTSIDE RECORDS SUMMARY | 2025-03-25 07:55 | XMS_ITS | Encounter Summary ---
Author Organization [facility] Address [address] [place] [address] Care Team Providers Care Marine Designer Name Role Phone Issac Kulkarni Primary Care Provider Lul Alvarado MD Unavailable Marta Franco MD Primary Care Provider Unavailzander e Encounter Details Date Type Department Care Team Description 01/28/2021 SCAN Medical Records [address] [place] [id number] Abstract, Provider Social History Tobacco Use Types Packs/Day Years [...] Date/Time Associated Diagnosis Comments OUTSIDE LAB Routine 01/28/2021 documented in this encounter Results * OUTSIDE LAB (01/28/2021) Provider Abstract LAB documented in this encounter Visit Diagnoses Not on filedocumented in this encounter Care Teams Marine Designer Relationship Specialty Start Date End Date Issac Kulkarni PCP - General Internal Medicine 02/04/18 11/28/21 Marta Franco MD PCP - General Internal Medicine 11/29/21 Lul Joel MD Medical Lab Tech Instructor Cardiovascular Disease 11/29/21 documented as of this encounter
--- OUTSIDE RECORDS SUMMARY | 2025-03-25 07:55 | XMS_ITS ---
Author Organization [facility] Address [address] [place] [address] Care Team Providers Care Can Repairer Name Role Phone ROMEO VIVEROS Unavailable [phone] ANH HORNE Unavailable [phone] ALLERGIES No Known Allergies REASON FOR VISIT Pt here for CPE, pt has no concerns. MEDICATIONS Medication SIG (Take, Route, Frequency, Duration) Notes Start Date End Date Status Vitamin D 50 MCG (1999 UT) 1 capsule Ora lly Once a day Active Vitamin B Complex - as directed Orally Active Ashwagandha Active Flonase Allergy Relief 50 MCG/ACT 2 spray in each nostril Nasally twice a day Active Prolastin-C 1000 MG/20ML as directed Intravenous Active Breo Ellipta 200-25 MCG/INH 1 puff Inhalation Once a day Active SOCIAL HISTORY Tobacco Use: Social History Observation Description Date Details (start date - stop date) Never Smoker NA - NA Sex Assigned At : Social History Observation Description Sex Assigned At Unknown Tobacco Use/Smoking Question Answer Notes Are you a nonsmoker VITAL SIGNS Blood pressure systolic 112 mm Hg 02/26/20 25 Blood pressure diastolic 72 mm Hg 025 Heart Rate 87 /min 02/25/2025 Height 62 in 02/25/2025 Weight 148 lbs 02/25/2025 BMI 27.07 kg/m2 02/25/2025 Oximetry 98 % 02/25/2025 Encounters Encounter Location Date Provider Diagnosis [facility] [address] [facility] [address] [place] [address] 02/25/2025 ANH HORNE Hyperlipidemia, unspecified hyperlipidemia type E78.5 ; Annual physical exam Z00.00 ; Palpitations R00.2 ; Ntvrf-1-nrsevzujnuw 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 ; Anxiety F41.9 and Breast cancer screening by mammogram Z12.31 ASSESSMENTS Encounter Date Diagnosis Assessment Notes Treatment Notes Treatment Clinical Notes Section Notes 02/25/2025 Hyperlipidemia, unspecified hyperlipidemia type (ICD-10 - [...] software and direct typing Please excuse inadvertent stenotypist or typing errors, or uncorrected word substitutions Although every attempt has been made by the provider to proofread this document, occasional misspellings and typographical errors may still be present Due to the previous pandemic, and the use of personal protective equipment (PPE) This may decrease voice recognition accuracy Inadvertent stenotypist errors may occur 02/25/2025 Annual physical exam (ICD-10 - Z00.00) [...] software and direct typing Please excuse inadvertent stenotypist or typing errors, or uncorrected word substitutions Although every attempt has been made by the provider to proofread this document, occasional misspellings and typographical errors may still be present Due to the previous pandemic, and the use of personal protective equipment (PPE) This may decrease voice recognition accuracy Inadvertent stenotypist errors may occur 02/25/2025 Palpitations (ICD-10 - [...] software and direct typing Please excuse inadvertent stenotypist or typing errors, or uncorrected word substitutions Although every attempt has been made by the provider to proofread this document, occasional misspellings and typographical errors may still be present Due to the previous pandemic, and the use of personal protective equipment (PPE) This may decrease voice recognition accuracy Inadvertent stenotypist errors may occur 02/25/2025 Vbodj-7-ugelnlleyi n deficiency (ICD-10 - E88.01) Acute Concerns/Problem [...] software and direct typing Please excuse inadvertent stenotypist or typing errors, or uncorrected word substitutions Although every attempt has been made by the provider to proofread this document, occasional misspellings and typographical errors may still be present Due to the previous pandemic, and the use of personal protective equipment (PPE) This may decrease voice recognition accuracy Inadvertent stenotypist errors may occur 02/25/2025 Anxiety (ICD-10 - F41.9) Acute Concerns/Problem [...] software and direct typing Please excuse inadvertent stenotypist or typing errors, or uncorrected word substitutions Although every attempt has been made by the provider to proofread this document, occasional misspellings and typographical errors may still be present Due to the previous pandemic, and the use of personal protective equipment (PPE) This may decrease voice recognition accuracy Inadvertent stenotypist errors may occur 02/25/2025 Breast cancer screening by mammogram (ICD-10 [...] software and direct typing Please excuse inadvertent stenotypist or typing errors, or uncorrected word substitutions Although every attempt has been made by the provider to proofread this document, occasional misspellings and typographical errors may still be present Due to the previous pandemic, and the use of personal protective equipment (PPE) This may decrease voice recognition accuracy Inadvertent stenotypist errors may occur PLAN OF TREATMENT Pending Test Test Name Order Date Mammogram 02/25/2025 Next Appt Details Provider Name:ANH HORNE, 09/01/2025 09:00:00 AM, [address] [facility], [facility] [address], [place], [address], Progress Notes * DAVON KIMIDOB:1980 (44 yo F)Acc No.[id number]:02/25/2025 CPE Patient:??ANDREW KIM Provider:??ANH HORNE NP :1980?Age:44 Y?Sex:Fe male Date:02/25/2025 Address:[address] [id number] Subjective: * Chief Complaints: * ?1. Pt here for CPE, pt has no concerns.. * HPI: ?Constitutional:? Patient is here today for annual CPE ?Patient seen and examined. ? Full past medical history, social history, family history, ?allergies and current medications were reviewed and updated. ?Acute Concerns/Problem List: ?02/25/2025 ?labs reviewed ?Patient is doing well overall, states she has back pain and joint pain ?following her Prolastin infusions that lasts about 2 days. 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 ?Previously patient had concerns for heart palpitations with a negative work up, ? she states she has not had any heart palpitations since taking Ashwaganda OTC. ?She is not on anxiolytics or SSRIs and says her mood is overall better ?Reports stable mood ?thyroid function stable ?Previous right neck mass ?Ultrasound of the thyroid gland February 18, 2024 ?There is no abnormalities noted in the thyroid gland ?Normal size and no nodules appreciated ?There is a palpable nodule in the right upper neck which is likely a normal lymph node ?Her thyroid function labs were unremarkable ?Health maintenance ?COVID x 3 ?Mammogram , Suppossedly had dense tissue and abnormality, 12/2023 ?[employer] in [place], we will need to track these records down ?She is scheduled this April in [place] but would like to schedule here for Mammogram ?Flu 2023, defers today ?Colonoscopy [facility], 11/2022, 5 year surveilance (2027) ?Comprehensive labs January 2025 ?CBC is stable ?Total cholesterol 184, triglycerides 47, HDL 56, LDL 119 ?Vitamin D is 44 ?TSH 1.5 ?Renal function electrolytes LFTs are stable ?Hemoglobin A1c 5.1 ?UA was unremarkable with some blood ?Social Hx ?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 * ROS:?All Other Systems:?Review of Systems (ROS)??All others negative except those mentioned in HPI.? * Medical History:??Asthma, Se asonal allergies, Alpha 1 antitryspin deficiency. * Surgical History:?? section . * Family History:??Father: dec eased.??Mother: alive, diagnosed with Unspecified essential hypertension.??1 brother(s) . 2 son(s) . .?? father had leukemia. * Social History:?Tobacco Use:??Tobacco Use/Smoking??Are you a??nonsmoker.?? * Medications:??Taking Ashwaga ndha , Taking Vitamin D 50 MCG (2000 UT) Capsule 1 capsule Orally Once a day , Taking Vitamin B Complex - Capsule as directed Orally , Taking Prolastin-C 1000 MG/20ML Solution as directed Intravenous , Taking Breo Ellipta 200-25 MCG/INH Aerosol Powder Breath Activated 1 puff Inhalation Once a day , Taking Flonase Allergy Relief 50 MCG/ACT Suspension 2 spray in each nostril Nasally twice a day , Discontinued Singulair 10 MG Tablet 1 tablet Orally Once a day , Discontinued Azelastine HCl 137 MCG/SPRAY Solution 2 puff in each nostril Nasally Twice a day , Medication List reviewed and reconciled with the patient * Allergies:??N.K.D.A. Objective: * Vitals:??HR:87/min, BP:112/7 2mm Hg, Wt:148lbs, BMI:27.07Index, Ht: 62 in, Oxygen sat %:98%. * Examination: ?General Examination: ?GENERAL APPEARANCE:??in no acute distress, well developed, well nourished.??HEAD:??normocephalic, atraumatic.??EYES:??pupils equal, round, reactive to light and accommodation.??EARS:??normal.??ORAL CAVITY:??mucosa moist.??THROAT:??clear.??NECK/THYROID:??neck supple, full range of motion, no cervical lymphadenopathy.??SKIN:??no suspicious lesions, warm and dry.??HEART:??no murmurs, regular rate and rhythm, S1, S2 normal.??LUNGS:??clear to auscultation bilaterally.??ABDOMEN:??normal, bowel sounds present, soft, nontender, nondistended.??EXTREMITIES:??no clubbing, cyanosis, or edema.??NEUROLOGIC:??nonfocal, motor strength normal upper and lower extremities, sensory exam intact.? Assessment: * Assessment: 1.??Annual physical exam - Z 00.00 (Primary)??2.??Hyperlipidemia, unspecified hyperlipidemia type - E78.5??3.??Palpitations - R00.2??4.??Zhgdu-0-zridterjwhu deficiency - E88.01??5.??Anxiety - F41.9??6.??Breast cancer screening by mammogram - Z12.31?? Acute Concerns/Problem List: 02/25/2025 Updated labs stable and reviewed with patient Thyroid studies unremarkable Palpitations have essentially resolved ASCVD risk 0.5%, no statin recommended at this time. Recommended dietary modification to lower LDL cholesterol. Mood is overall well Cscope 2022, due 5 yr surveilance 2027 [facility] [place] Mammogram last done in 12/2023, patient sent [...] software and direct typing Please excuse inadvertent stenotypist or typing errors, or uncorrected word substitutions Although every attempt has been made by the provider to proofread this document, occasional misspellings and typographical errors may still be present Due to the previous pandemic, and the use of personal protective equipment (PPE) This may decrease voice recognition accuracy Inadvertent stenotypist errors may occur. Plan: * Treatment: * Images: Billing Information: * Visit Code:?? [id number] Preventive Care Est Pt. Age 40-64. Modifiers: SA * Procedure Codes:?? Care Plan Details* * Sign off status: Completed true * Provider:??ANH HORNE NP Date:??12/2024 History and Physical Notes * HPI (History of Present Illness) Category Sub-Category Detail Notes Category Not es Constitutional Patient is here today for annual CPE Patient seen and examined. Full past medical history, social history, family history, allergies and current medications were reviewed and updated. Acute Concerns/Problem List: 02/25/2025 labs reviewed Patient is doing well overall, states she has back pain and joint pain following her Prolastin infusions that lasts about 2 days. 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 Previously patient had concerns for heart palpitations with a negative work up, she states she has not had any heart palpitations since taking Ashwaganda OTC. She is not on anxiolytics or SSRIs and says her mood is overall better Reports stable mood thyroid function stable Previous right neck mass Ultrasound of the thyroid gland February 18, 2024 There is no abnormalities noted in the thyroid gland Normal size and no nodules appreciated There is a palpable nodule in the right upper neck which is likely a normal lymph node Her thyroid function labs were unremarkable Health maintenance COVID x 3 Mammogram , Suppossedly had dense tissue and abnormality, 12/2023 [employer] in [place], we will need to track these records down She is scheduled this April in [place] but would like to schedule here for Mammogram Flu 2023, defers today Colonoscopy [place], 11/2022, 5 year surveilance (2027) Comprehensive labs January 2025 CBC is stable Total cholesterol 184, triglycerides 47, HDL 56, LDL 119 Vitamin D is 44 TSH 1.5 Renal function electrolytes LFTs are stable Hemoglobin A1c 5.1 UA was unremarkable with some blood 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, 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, (21, 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) G2, P2 non smoker social ETOH no recr THC or illcit drug use Examination Category Sub-Category Detail Notes Category Not es General Examination GENERAL APPEARANCE: in no ac socrates distress, well developed, well nourished HEAD: normocephalic, atrau matic EYES: pupils equal, round, reactive to light and accommodation EARS: normal THROAT: clear NECK/THYROID: neck supple, full ra nge of motion, no cervical lymphadenopathy HEART: no murmurs, regular rate and rhythm, S1, S2 normal LUNGS: clear to auscultatio n bilaterally ABDOMEN: normal, bowel sounds present, soft, nontender, nondistended NEUROLOGIC: nonfocal, motor stre ngth normal upper and lower extremities, sensory exam intact SKIN: no suspicious lesion s, warm and dry EXTREMITIES: no clubbing, cyanosi s, or edema ORAL CAVITY: mucosa moist
--- OUTSIDE RECORDS SUMMARY | 2025-03-25 07:55 | XMS_ITS ---
Author Organization [employer] [facility] Address [address] [place] [address] Care Team Providers Care Certified Diabetes Educator Name Role Phone ROMEO VIVEROS Unavailable [phone] ANH HORNE Unavailable [phone] ALLERGIES No Known Allergies REASON FOR VISIT Pt seen in office for f/u visit. Pt received influenza vaccine given in left arm , Pt tolerated well with no interactions and discharged in stable condition. MEDICATIONS Medication SIG (Take, Route, Frequency, Duration) Notes Start Date End Date Status Prolastin-C 1000 MG/20ML as directed Intravenous Active Breo Ellipta 200-25 MCG/INH 1 puff Inhalation Once a day Active Singulair 10 MG 1 tablet Orally Once a day Active Flonase Allergy Relief 50 MCG/ACT 2 spray in each nostril Nasally twice a day Active Azelastine HCl 137 MCG/SPRAY 2 puff in each nostril Nasally Twice a day Active IMMUNIZATIONS Vaccine Route Administration [...] W/U Status Risk SNOMED Code Notes Problem Encounter for vaccination (Z23) Active confirmed Requires vaccination ([id number]) VITAL SIGNS Blood pressure systolic 112 mm Hg 08/22/20 24 Blood pressure diastolic 84 mm Hg 024 Heart Rate 80 /min 08/22/2024 Height 62 in 08/22/2024 Weight 150 lbs 08/22/2024 BMI 27.43 kg/m2 08/22/2024 Oximetry 98 % 08/22/2024 Encounters Encounter Location Date Provider Diagnosis [facility] [address] [facility] [address] [place] [address] 08/22/2024 ANH HRONE Palpitations R00.2 ; Hyperlipidemia, unspecified hyperlipidemia type E78.5 ; Qgetm-0-aojwzppsuap 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 ; Anxiety F41.9 and Encounter for immunization Z23 ASSESSMENTS Encounter Date Diagnosis Assessment Notes Treatment [...] software and direct typing Please excuse inadvertent reliability technologist or typing errors, or uncorrected word substitutions Although every attempt has been made by the provider to proofread this document, occasional misspellings and typographical errors may still be present Due to the previous pandemic, and the use of personal protective equipment (PPE) This may decrease voice recognition accuracy Inadvertent reliability technologist errors may occur 08/22/2024 Hyperlipidemia, unspecified hyperlipidemia [...] software and direct typing Please excuse inadvertent reliability technologist or typing errors, or uncorrected word substitutions Although every attempt has been made by the provider to proofread this document, occasional misspellings and typographical errors may still be present Due to the previous pandemic, and the use of personal protective equipment (PPE) This may decrease voice recognition accuracy Inadvertent reliability technologist errors may occur 08/22/2024 Nptii-0-yetiedtdxo n deficiency (ICD-10 - E88.01) Acute Concerns/Problem [...] software and direct typing Please excuse inadvertent reliability technologist or typing errors, or uncorrected word substitutions Although every attempt has been made by the provider to proofread this document, occasional misspellings and typographical errors may still be present Due to the previous pandemic, and the use of personal protective equipment (PPE) This may decrease voice recognition accuracy Inadvertent reliability technologist errors may occur 08/22/2024 Anxiety (ICD-10 - F41.9) Acute Concerns/Problem [...] software and direct typing Please excuse inadvertent reliability technologist or typing errors, or uncorrected word substitutions Although every attempt has been made by the provider to proofread this document, occasional misspellings and typographical errors may still be present Due to the previous pandemic, and the use of personal protective equipment (PPE) This may decrease voice recognition accuracy Inadvertent reliability technologist errors may occur 08/22/2024 Encounter for immunization [...] software and direct typing Please excuse inadvertent reliability technologist or typing errors, or uncorrected word substitutions Although every attempt has been made by the provider to proofread this document, occasional misspellings and typographical errors may still be present Due to the previous pandemic, and the use of personal protective equipment (PPE) This may decrease voice recognition accuracy Inadvertent reliability technologist errors may occur PLAN OF TREATMENT Next Appt Details Provider Name:ANH HORNE, 09/01/2025 09:00:00 AM, [address] [facility], [address], [place], [address], Progress Notes * DAVON KIMIDOB:1980 (44 yo F)Acc No.[id number]:08/22/2024 Progress Notes Patient:??ANDREW KIM Provider:??ANH HORNE NP :1980?Age:44 Y?Sex:Fe male Date:08/22/2024 Address:[address] [facility] Subjective: * Chief Complaints: * ?1. Pt seen in office f or f/u visit. Pt received influenza vaccine given in left arm , Pt tolerated well with no interactions and discharged in stable condition.. * HPI: ?Constitutional:? Patient is here for Chronic Disease Management follow-up visit ?Patient seen and examined. ? Full past medical history, social history, family history, ?allergies and current medications were reviewed and updated. ?Acute Concerns/Problem List: ?08/22/2024 ?Patient denies any acute complaints or concerns. ?Interested in flu shot today ? question of a right upper neck mass ?Ultrasound of the thyroid gland February 18, 2024 ?There is no abnormalities noted in the thyroid gland ?Normal size and no nodules appreciated ?There is a palpable nodule in the right upper neck which is likely a normal lymph node ?Her thyroid function labs were unremarkable ?Palpitations have improved significantly ?I did review her 48 hour Holter monitor, did not show any significant PVCs or PACs ?No significant pauses or tachyarrhythmias ?She was seen by cardiology in late November and suggested what I had recommended ?Mostly sinus tachycardia no underlying atrial fibrillation ?She had been put on propanolol, this was discontinued by molder machine tender Madi ?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 ?She is not on anxiolytics or SSRIs and says her mood is overall better ?Her EKG showed normal sinus rhythm ?Her exam was regular rate and rhythm ? 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 * ROS:?All Other Systems:?Review of Systems (ROS)??All others negative except those mentioned in HPI.? * Medical History:??Asthma, Se asonal allergies, Alpha 1 antitryspin deficiency. * Surgical History:?? section . * Hospitalization/Major Diagno stic Procedure:??Denies Past Hospitalization. * Family History:??Father: dec eased.??Mother: alive, diagnosed with Unspecified essential hypertension.??1 brother(s) . 2 son(s) . .?? father had leukemia. * Social History:?Tobacco Use:??Tobacco Use/Smoking??Are you a??nonsmoker.?? * Medications:??Taking Prolast in-C 1000 MG/20ML Solution as directed Intravenous , Taking Breo Ellipta 200-25 MCG/INH Aerosol Powder Breath Activated 1 puff Inhalation Once a day , Taking Singulair 10 MG Tablet 1 tablet Orally Once a day , Taking Flonase Allergy Relief 50 MCG/ACT Suspension 2 spray in each nostril Nasally twice a day , Taking Azelastine HCl 137 MCG/SPRAY Solution 2 puff in each nostril Nasally Twice a day , Medication List reviewed and reconciled with the patient * Allergies:??N.K.D.A. Objective: * Vitals:??HR:80/min, BP:112/8 4mm Hg, Wt:150lbs, BMI:27.43Index, Ht: 62 in, Oxygen sat %:98%. * [...] extremities, sensory exam intact.? Assessment: * Assessment: 1.??Hyperlipidemia, unspecif ied hyperlipidemia type - E78.5 (Primary)??2.??Palpitations - R00.2??3.??Vnflj-0-xdixkuoxjot deficiency - E88.01??4.??Anxiety - F41.9??5.??Encounter for immunization - Z23?? Acute Concerns/Problem List: 08/22/2024 Thyroid ultrasound was [...] software and direct typing Please excuse inadvertent reliability technologist or typing errors, or uncorrected word substitutions Although every attempt has been made by the provider to proofread this document, occasional misspellings and typographical errors may still be present Due to the previous pandemic, and the use of personal protective equipment (PPE) This may decrease voice recognition accuracy Inadvertent reliability technologist errors may occur. Plan: * Treatment: * Immunizations:? influenza : 0.5 mL (Dose No:1) (Route: Intramuscular) given by Elyssa Lyles on Left Deltoid (Encounter for immunization) * Procedure Codes:??73108 FLU VACC PRSV FREE INC ANTIG, 27749 IMMUNIZATION ADMIN, 54254 FLU VAC NO PRSV 4 DANIELA 3 YRS * Images: Billing Information: * Visit Code:?? 46148 Office Visit, Est Pt., Level 4. * Procedure Codes:?? 02206 FLU VACC PRSV FREE INC ANTIG. 93252 IMMUNIZATION ADMIN. 68698 FLU VAC NO PRSV 4 DANIELA 3 YRS. Care Plan Details* * Sign off status: Completed true * Provider:??ANH HORNE NP Date:??07/28 History and Physical Notes * HPI (History of Present Illness) Category Sub-Category Detail Notes Category Not es Constitutional Patient is here for Chronic Disease Management follow-up visit Patient seen and examined. Full past medical history, social history, family history, allergies and current medications were reviewed and updated. Acute Concerns/Problem List: 08/22/2024 Patient denies any acute complaints or concerns. Interested in flu shot today question of a right upper neck mass Ultrasound of the thyroid gland February 18, 2024 There is no abnormalities noted in the thyroid gland Normal size and no nodules appreciated There is a palpable nodule in the right upper neck which is likely a normal lymph node Her thyroid function labs were unremarkable Palpitations have improved significantly I did review her 48 hour Holter monitor, did not show any significant PVCs or PACs No significant pauses or tachyarrhythmias She was seen by cardiology in late November and suggested what I had recommended Mostly sinus tachycardia no underlying atrial fibrillation She had been put on propanolol, this was discontinued by molder machine tender Madi Given her history of alpha trypsin 1 deficiency and being on Prolastin Patient no longer takes Propanolol due to feeling sad and crying episodes. She is not on anxiolytics or SSRIs and says her mood is overall better Her EKG showed normal sinus rhythm Her exam was regular rate and rhythm she had a 30 day event monitor done as well as echocardiogram thyroid function stable Health maintenance COVID x 3 Mammogram , Suppossedly had dense tissue and abnormality, 12/2023 UTD INFORMATION SERVICES VICE PRESIDENT in [place], we will need to track these records down 2023, today in office Comprehensive labs 01/2024 Electrolytes renal function LFTs are stable CBC is stable Total cholesterol 184, LDL is 126, HDL 51, triglycerides 37 Vitamin D is 14 TSH 1.4 Thyroid US: Results - were normal 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
--- NOTE | 2025-03-25 08:00 | PFT_ITS ---
Spirometry [] Lung Volumes [] Diffusion Capacity [] Methacholine Challenge [] Flow Volume Loops [] MVV [] MIP/MEP(Max inspiratory pressure/Max expiratory pressure) [] 6 Minute Walk Test [] ABG [] Interpretation [] MTDD
[2025-03-25 08:37] VITALS: PULSE 90; O2SAT 97
== END 2025-03-25 07:52 | disposition home or self-care (01) ==
LOC: HO.RESP 07:51
PROVIDERS: PCP Internal Medicine; Visit Provider Hospitalist
DX: E88.01 Alpha-1-antitrypsin deficiency (principal)
CPT/HCPCS: 94010; 94640; 94727; 94729

== ENCOUNTER → 2025-03-25 08:00 | Outpatient (BNV) | payer OTHER, SELFPAY | PROVIDERS: PCP Internal Medicine; Visit Provider Internal Medicine Pulmonary Disease | DX: E88.01 Alpha-1-antitrypsin deficiency (principal) | CPT/HCPCS: 94060; 94727; 94729 ==

== ENCOUNTER 2025-04-21 13:40 | Outpatient (AMB) | payer OTHER, SELFPAY ==
[2025-04-21 13:44] VITALS: BP 100/60; PULSE 76; O2SAT 99; BMI 27.2
--- NOTE | 2025-04-21 13:44 | A.OFFVIS_ITS ---
Vital Signs 3 04/21/25 13:44 Height 5 ft 2 in Weight 148 lb 12.992 oz BMI 27.2 BP 100/60 Blood Pressure Location Lt brachial Position Sitting Pulse 76 Pulse Source Pulse Oximeter Pulse Oximetry (%) 99 Oxygen Delivery Method Room Air Intake Visit Reasons: Asthma Allergies No Known Allergies Allergy (Verified 04/21/25 13:48) HPI Comments Details: The patient is a 44 y/o woman with known history asthma in addition to alpha-1 antitrypsin deficiency, MZ with levels of 70, currently receiving augmentation therapy. overall the patient has been doing well on room respiratory therapy. Recently she has had to use her rescue inhaler a couple times for chest tightness and shortness of breath. She has not required any prednisone and has not required any hospitalizations. The patient has been tolerating her off of 1 augmentation therapy without any significant side effects. She does feel tired 24-48 hours after the infusions. The symptoms do resolve. We did review her blood work from October 2020 demonstrating normal renal and liver function. Her inflammatory markers were normal and her off I level increased to 157. in addition to that her IgE levels were elevated consistent with allergies. At this time the patient with plan to continue the infusion therapy. Will plan to repeat her pulmonary function studies and laboratory data sometime the end of the year. 07/27/2023 the patient is here for pulmonary follow-up visit. She continues to do very well. The patient continues on the alpha-1 augmentation therapy on a weekly basis. After the infusions she is still experiencing symptoms of fatigue and also body ache. The symptoms usually last around 24 hours. She also snores per her . She has had a sleep study many years ago which was negative for any sleep apnea. Although if she continues to have daytime drowsiness with an elevated [place] score then over reasonable for her to get home sleep study. She does use a mouth guard. I did recommend she can talk to her dentist about getting hurt elastic type of mandibular device with mouth guards as a good option for snoring and also likely treat mild degree of sleep apnea. We talked about considering switching to a different agent, but, the patient is concerned about potential new side effects from a different preparation. At least do this when she knows where she is getting. She does get some relief when she does take Naprosyn after the infusion. I did recommend she can try taking magnesium for muscle spasms prior to the infusion if this is not helpful then just to take ibuprofen or Naprosyn pre infusion. Will go ahead and repeat her blood work for the next visit her last set of blood work From January 2023 were reassuring. 11/27/2023 the patient is here for sick visit. Apparently she has been sick now for about 5 days. She started getting sick on Sunday evening when she developed some chest tightness and cough. Noticing increasing wheezing. She started using her nebulizer more often. Then she became very fatigued. She did test negative for COVID-19. The patient started coughing and chest congestion with yellow phlegm. She feels still very tired. She did have a swab today which was negative for the flu RSV and also COVID. The patient does have some persistent coughing and also some wheezing on examination. Therefore will go ahead and treated for asthmatic bronchitis. No need for an x-ray at this time. If her symptoms do not respond to her therapy the patient will call for further evaluation. 03/21/2024 the patient is here for a pulmonary follow-up visit. Overall she is still well. She continues infusions on a weekly basis. Still having significant fatigue after the infusions where she needs to usually rest for the rest of the day. She still developing minimal rashes from the infusions. Is using premedications with Benadryl which helped some. She has never had to use her EpiPen. She will continue to monitor closely for any adverse effects or allergic reactions. I which point we would have to hold the infusions. The other poor products we can use but then the also be something new for her to tolerate. Therefore since she is doing okay right now nothing seems to be getting worse will continue with current plan. She will have blood work to make sure that she is tolerating the therapy well and will have to monitor closely her alpha-1 levels and also her liver function studies. The patient continues the Symbicort inhaler. She is exercising more regularly which is reassuring. Overall she feels better from health status standpoint. 05/28/2024 the patient is here for sick visit. The patient has been developing increasing chest tightness and shortness of breath while exercising. Important has to do with the change in the humidity and heat. She has been using Symbicort with partial response. She also has been using her rescue inhaler. She has been noticing increasing shortness of breath. Sometimes palpitations. Sometimes she also complains chest pressure. Bvvl-dj-eqqzzaro severity. Currently she is doing okay without any chest discomfort. She continues on the alpha-1 augmentation therapy. She does not on a weekly basis. She is still premedicated with Benadryl to minimize adverse effects. It appears to be working well. If the patient develops any worsening symptoms she will call. Otherwise she is going to undergo an EKG and also blood work in case her symptoms persist. Will go ahead and optimize her respiratory therapy by switching her inhaler to breztri. 10/21/2024 the patient is here for sick visit apparently she started developing worsening cough nonproductive in nature the last few days. Denied any fevers or chills. She did have a sore throat although is better at this time. She has been using inhalers has not noticed any worsening chest tightness or wheezing. Positive sick contacts. She is wearing a mask. The patient did have blood work back in 04/14/2024 demonstrating normal alpha-1 levels. Her last PFTs were also reassuring. Will have her come back in 6 months and at that point will repeat her PFTs and plan to do additional blood work. She for now she continues on the alpha-1 augmentation therapy on a weekly basis. 04/21/2025 the patient is here for a pulmonary follow-up visit. Overall she is doing well. She continues to receive her weekly infusions of alpha-1 antitrypsin protein. Seems to be tolerating well though she gets very fatigued for 24-48 hours after administration. Overall she feels the treatment has been a very affecting beneficial. She does feel significantly improved. Her PFTs also were reviewed. It demonstrates normal lung capacity. Normal flow volume loop without any evidence of any obstructive nor restrictive lung disease. The patient did have blood work demonstrating normal kidney function and also normal LFTs. She will need to have a alpha-1 level checked. The last time was checked in 2023 the levels were within normal range. The patient has had some issues with waking. She understands that the weight gain is going to potentially worsening respiratory symptoms. Will be reasonable for her to visit a dietitian to make sure to make lifestyle changes to continue improving her overall status specially with her underlying genetic abnormality. COUNT INCLUDES THE [facility] Medical History (Updated 04/21/25 @ 14:30 by Bryant Barraza MD) Weight gain Dizziness Chronic allergic rhinitis Asthma Pmzpw-5-swvexjjrpsy deficiency Family History (Updated 06/12/21 @ 21:47 by Bryant Barraza MD) Other Qffet-5-fymwcdobsbe deficiency Asthma Social History Patient Tobacco Use Status: Never used Tobacco Review of Systems Const Reports body aches, Reports fatigue, Denies fever(s), Denies night sweats and Reports weight gain ENT Denies change in voice, Denies lip swelling, Denies mouth pain, Reports nasal congestion, Reports nasal discharge, Reports post nasal drip, Reports sore throat and Denies tongue swelling Card Denies chest pain and Reports dyspnea on exertion Resp Denies change in phlegm color, Denies chest congestion, Reports cough, Reports dyspnea on exertion and Denies wheezing GI Denies abdominal pain Musc Reports as per HPI, Reports myalgias and Reports arthralgias Skin/Breast Reports rash Neuro Denies Neuro-related abnormal movements, Reports burning sensations and Reports paresthesias Psych Denies no additional complaints Endo Reports fatigue Khoa/Lymph Denies easy bleeding and Denies lymphadenopathy Aller/Immun Denies lip swelling, Denies tongue swelling and Denies wheezing Physical Exam Vital Signs: Last Vital Signs Pulse 76 04/21/25 13:44 BP 100/60 04/21/25 13:44 Pulse Ox 99 04/21/25 13:44 Oxygen Delivery Method Room Air 04/21/25 13:44 BMI result Body Mass Index 27.2 Const General: alert and tired appearing HEENT Head: Yes normocephalic Eyes Pupils: Equal, round and reactive pupils present Neck Neck: Yes normal visual inspection, Yes full ROM and Yes no lymphadenopathy Chest Chest palpation & inspection: normal inspection of the chest Resp Effort & Inspection: normal respiratory effort and Actively coughing Auscultation: diminished lung sounds Cardio Rate: regular rate Rhythm: regular rhythm Heart sounds: S1 normal heart sound present and S2 normal heart sound present GI Palpation (GI): Soft to palpation and nontender Auscultation: normal bowel sounds Skin Other: General skin exam: petechiae Rashes: rashes noted (pleuritic patches and petichia) Neuro Cranial nerves: Yes Equal, round and reactive pupils present Assessment & Plan Assessment & Plan (1) Ztbpk-4-wqenrusyqls deficiency: Code(s): E88.01 - Aowcm-4-rytzkbukxtu deficiency Category: Medical (2) Weight gain: Code(s): R63.5 - Abnormal weight gain Category: Medical (3) Asthma: Code(s): J45.909 - Unspecified asthma, uncomplicated Category: Medical Qualifiers: Asthma severity: moderate Asthma persistence: persistent Asthma complication type: uncomplicated Qualified Code(s): J45.40 - Moderate persistent asthma, uncomplicated (4) Chronic allergic rhinitis: Code(s): J30.9 - Allergic rhinitis, unspecified Category: Medical Plan Breztri JOSEPH as needed Continue Singulair Continue alpha 1 antitrypsin aumentation therapy weekly. Monitor for worsening rash F/U 8-12 months Orders: Orders 2 Alpha 1 Anti-trypsin Today E88.01 - Gvedq-5-isfkpfxoeln deficiency Referrals 2 Door Installer Nutrition Referral R63.5 - Abnormal weight gain Medications: Refilled 2 nirmatrelvir-ritonavir 300 mg (150 mg x 2)-100 mg (Paxlovid) take TWO 150 mg tablets of nirmatrelvir with ONE 100 mg tablet of ritonavir twice daily for 5 days PO 30 ea 0RF Coding Level of Care Code Est Pt Level 4 (31062) Diagnoses Njcdb-6-ivtvpbgplvb 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 Weight gain R63.5 Moderate persistent asthma without complication J45.40 Asthma severity: moderate Asthma persistence: persistent Asthma complication type: uncomplicated Chronic allergic rhinitis J30.9 Time Spent (min) 16
--- OUTSIDE RECORDS SUMMARY | 2025-04-21 13:53 | XMS_ITS | Clinical Summary ---
Author Organization [facility] Address [address] [place] [address] Care Team Providers Care Fisheries Officer Name Role Phone Unavailable Primary Care Provider [...]
== END 2025-04-21 14:34 | disposition home or self-care (01) ==
LOC: HO.HPS 13:41
PROVIDERS: PCP Internal Medicine; Visit Provider Hospitalist
DX: E88.01 Alpha-1-antitrypsin deficiency (principal); R63.5 Abnormal weight gain; J45.40 Moderate persistent asthma, uncomplicated; J30.9 Allergic rhinitis, unspecified
CPT/HCPCS: 99214

== ENCOUNTER → 2025-04-21 13:40 | Outpatient (BNVA) | payer OTHER, SELFPAY | PROVIDERS: PCP Internal Medicine; Visit Provider Hospitalist | DX: R21 Rash and other nonspecific skin eruption (principal); J45.909 Unspecified asthma, uncomplicated; E88.01 Alpha-1-antitrypsin deficiency; J44.9 Chronic obstructive pulmonary disease, unspecified; J45.41 Moderate persistent asthma with (acute) exacerbation; J30.9 Allergic rhinitis, unspecified ==

== ENCOUNTER 2025-05-27 08:53 | Outpatient (AMB) | payer OTHER, SELFPAY ==
--- OUTSIDE RECORDS SUMMARY | 2025-05-27 09:02 | XMS_ITS | Clinical Summary ---
Author Organization [facility] Address [address] [place] [address] Care Team Providers Care Vending Stand Supervisor Name Role Phone Unavailable Primary Care Provider [...]
--- OUTSIDE RECORDS SUMMARY | 2025-05-27 09:02 | XMS_ITS | Clinical Summary ---
Author Organization [address] [facility] Address [address] [place] [address] Phone Care Team Providers Care Bobbin Doffer Name Role Phone Marta Franco MD Primary Care Provider [phone] Encounters Date Type Department Care Team Description 03/03/2025 1:58 PM EDT - 03/03/2025 11:59 PM EDT Hospital [facility] [address] [place] [phone] Encounter for screening mammogram for malignant neoplasm of breast Discharge Disposition: Home or Self Care 02/25/2025 Telephone Gastroenterology - [address] [place] [phone] Bijan Eastman MD FAX from Last 3 Months Surgical History Surgery Date Site/Laterality Comments SECTION PROCEDURE: MS DELIVERY ONLY; COMMENT: x2 Medical History Medical History Date Comments Jbfyc-4-jhijwtzvnri deficien cy (CMS/HCC V24, CMS/HCC V28) DX:Cnyfx-5-bxpnvmbjphx defic iency ([facility]) Family History Medical History Relation [...] screening mammogram for malignant neoplasm of breast LIPID PANEL WITH REFLEX TO DIRECT LDL Routine 02/20/2025 9:22 AM EDT Screening for diabetes mellitus Vitamin D deficiency disease Screening for thyroid disorder Screening for lipoid disorders from Last 3 Months or Most Recently Relevant to Health Maintenance Results * MG Mammo Digital Screening w Jagjit bilat (03/03/2025 2:19 PM EDT) Anatomical Region Laterality Modality Breast Bilateral Mammography 03/11/2025 10:3 1 AM EDT Impressions 03/11/2025 10:38 AM EDT No mammographic evidence of malignancy. No suspicious interval change. A negative mammogram in the presence of a clinically suspicious palpable abnormality does not preclude the possibility of malignancy or alter the indications for biopsy. ASSESSMENT: BI-RADS 1: NEGATIVE RECOMMENDATION(S): 1: Routine screening mammogram BILATERAL in 1 year. [facility] location[facility] [address], [address] -------- FINAL REPORT -------- Dictated By: Albert Rajput Dictated Date: 03/11/2025 10:31 ET Assigned Physician: Albert Rajput Reviewed and Electronically Signed By: Albert Rajput Signed Date: 03/11/2025 10:38 ET Workstation ID: [id number] Transcribed By: Self Edit Transcribed Date: 03/11/2025 10:31 ET Narrative 03/11/2025 10:38 AM EDT EXAM: SCREENING MAMMOGRAPHY, BILATERAL HISTORY: SCREENING. No additional history. COMPARISON: 01/11/24, 12/19/21, 12/27/22 TECHNIQUE: Synthesized CC and MLO projections of each breast. Tomosynthesis of each breast in the CC and MLO projections. ADDITIONAL IMAGING: Craniocaudal view of each breast exaggerated toward the axilla using Tomosynthesis. Computer-aided detection was employed with the [employer] AI 3-D. TISSUE DENSITY: The breasts are heterogeneously dense, which may obscure small masses. (BI-RADS category C) FINDINGS: RIGHT BREAST: No suspicious mass. No suspicious calcification. No distortion. No additional suspicious right breast findings LEFT BREAST: No suspicious mass. No suspicious calcification. No distortion. No additional suspicious left breast findings Procedure Note Albert Rajput MD - 03/11/2025 EXAM: SCREENING MAMMOGRAPHY, BILATERAL HISTORY: SCREENING. No additional history. COMPARISON: 01/11/24, 12/19/21, 12/27/22 TECHNIQUE: Synthesized CC and MLO projections of each breast.Tomosynthesis of each breast in the CC and MLO projections. ADDITIONAL IMAGING: Craniocaudal view of each breast exaggerated towardthe axilla using Tomosynthesis. Computer-aided detection was employed with the Note[employer]ick AI 3-D. TISSUE DENSITY: The breasts are [...] year. [facility]ammography location: [facility] [address], [address] -------- FINAL REPORT -------- Dictated By: Albert Rajput Dictated Date: 03/11/2025 10:31 ET Assigned Physician: Albert Rajput Reviewed and Electronically Signed By: Albert Rajput Signed Date: 03/11/2025 10:38 ET Workstation ID: [id number] Transcribed By: Self Edit Transcribed Date: 03/11/2025 10:31 ET Florence Al SOLAR SYSTEM DESIGNER IMG BI PROCEDURES Final Resul t * (ABNORMAL) Lipid panel with reflex to direct LDL (02/20/2025 9:22 AM EDT) Cholesterol 184 0 - 200 mg/dL LAB CHEMISTRY METHOD 02/20/2025 12:17 PM EDT [facility] Triglycerides 47 0 - 150 mg/dL LAB CHEMISTRY METHOD 02/20/2025 12:17 PM EDT [facility] HDL 56 >=40 mg/dL LAB CHEMISTRY METHOD 02/20/2025 12:17 PM EDT [facility] LDL Calculated 119(H) 0 - 100 mg/dL LAB CHEMISTRY METHOD 02/20/2025 12:17 PM EDT [facility] VLDL Cholesterol Jeffry 9.4 mg/dL LAB CHEMISTRY METHOD 02/20/2025 12:17 PM EDT [facility] Non HDL Chol. (LDL+VLDL) 128 <145 mg/dL LAB CHEMISTRY METHOD 02/20/2025 12:17 PM EDT [facility] Chol/HDL Ratio 3.3 0.0 - 4.4 LAB CHEMISTRY METHOD 02/20/2025 12:17 PM T [facility] Blood Venous blood specimen / Unknown Venipuncture / Unknown 02/20/2025 9:22 AM EDT 02/20/2025 10:23 AM EDT Marta Franco MD LAB BLOOD ORDERABLES Final Resul t [facility] [address] [place] [address], from Last 3 Months or Most Recently Relevant to Health Maintenance Insurance [employer] Care Teams Bobbin Doffer Relationship Specialty Start Date End Date Marta Franco MD [address] [place] [address] [place] [address] PCP - General Internal Medicine 02/20/25
--- OUTSIDE RECORDS SUMMARY | 2025-05-27 09:02 | XMS_ITS | Patient Health Record ---
Author Organization [facility] [address] [address] Address [address] [place] [address] Care Team Providers Care Hearing Instrument Specialist Name Role Phone ROMEO IVVEROS Unavailable [phone] AMANDAANH MARINO Unavailable [phone] Allergies No Known Allergies Results Component Value Reference Range Notes COMPREHENSIVE METABOLIC PANE L Reviewed date:02/24/2025 08:59:33 [...] 3.2-5.0 g/dL Total Bilirubin 0.5 0.0-1.4 mg/dL CBC WITH AUTO DIFFERENTIAL Reviewed date:02/24/2025 08:58:51 [...] K/mcL Immature Granulocytes Absolute 0.02 0.00-0.03 K/mcL URINALYSIS WITH REFLEX MICRO SCOPIC Reviewed date:02/24/2025 10:41:11 AM Interpretation: Performing Lab: Notes/Report: Specific [place] Urine 1.021 1.003-1.030 pH, Urine 7.0 5.0-8.0 pH Leukocytes, Urine Small Negative Nitrite, Urine Negative Negative Protein, Urine Trace <=Trace mg/dL Glucose, Urine Negative Negative mg/dL Ketones, Urine Negative Negative mg/dL Urobilinogen, Urine 0.2 0.2-1.0 mg/dL Bilirubin, Urine Negative Negative Blood, Urine Large Negative RBC, Urine 4.7 0-4 /HPF WBC, Urine 10.0 0-4 /HPF Squamous Epithelial, Urine 45 0-60 /LPF Non-Squamous Epithelial, Urine 2-5 TRANSITIONAL EPI Bacteria, Urine Few Negative /HPF Hyaline Casts, Urine 2.8 0-3 /LPF HEMOGLOBIN A1C Reviewed date:02/24/2025 08:51:49 AM Interpretation: Performing Lab: Notes/Report: Hemoglobin A1C 5.1 <6.5 % Mean Bld Glu Estim. 100 THYROID STIMULATING HORMONE Reviewed date:02/24/2025 08:51:49 AM Interpretation: Performing Lab: Notes/Report: TSH 1.85 0.40-4.00 mcIU/mL VITAMIN D 25 HYDROXY Reviewed date:02/24/2025 08:51:49 AM Interpretation: Performing Lab: Notes/Report: Vit D, 25-Hydroxy 44.1 30.0-80.0 ng/mL LIPID PANEL WITH REFLEX TO D IRECT LDL Reviewed date:02/24/2025 08:59:25 AM Interpretation: Performing Lab: Notes/Report: Cholesterol 184 0-200 mg/dL Triglycerides 47 0-150 mg/dL HDL 56 >=40 mg/dL LDL Calculated 119 0-100 mg/dL VLDL Cholesterol Jeffry 9.4 Non HDL Chol. (LDL+VLDL) 128 <145 mg/dL Chol/HDL Ratio 3.3 0.0-4.4 MG MAMMO DIGITAL SCREENING W NUPUR BILAT Reviewed date:03/11/2025 10:57:46 AM Interpretation: Performing Lab: Notes/Report: Note See Note [facility], a member of [employer] Patient Name: ANDREW IKM Date of : 1980 Reason for Exam: screening Exam Date: 03/03/2025 [id number] EST Report Status: Final Ordering Provider: ANH [...] Computer-aided detec tion was employed with the i[employer] AI 3-D. TISSUE DENSITY: The breasts are [...] [facility] [address] [place], [address] -------- FINAL REPOR T -------- Dictated By: Albert Romero Dictated Date: 03/11/2025 10:31 ET Assigned Physician: Albert Rajput Reviewed and Electronically Signed By: Albert Rajput Signed Date: 025 10:38 ET Workstation ID: [id number] Transcribed By: Self Edit Transcribed Date: 03/11/2025 10:31 ET Reason For Referral No Information Medications Medication SIG (Take, Route, Frequency, Duration) Notes Start Date End Date Status Vitamin D 50 MCG (1999) 1 capsule Ora lly Once a day Active Vitamin B Complex - as directed Orally Active Ashwagandha Active Prolastin-C 1000 MG/20ML as directed Intravenous Active Breo Ellipta 200-25 MCG/INH 1 puff Inhalation Once a day Active Flonase Allergy Relief 50 MCG/ACT 2 spray in each nostril Nasally twice a day Active Immunizations Vaccine Route Administration Date Status Comme nts influenza IM Intramuscular 08/22/2024 Administered Social History Tobacco Use: Social History Observation Description Date Details (start date - stop date) Never Smoker NA - NA Tobacco Use/Smoking Question Answer Notes Are you a nonsmoker Problems Problem Type SNOMED Code ICD Code Onset Dates Problem Status W/U Status Risk Notes Problem Pernicious anemia (05870917) Vitamin B12 deficiency anemia due to intrinsic factor deficiency (D51.0) Active confirmed Problem Vitamin D deficiency (56332562) Vitamin D deficiency, unspecified (E55.9) Active confirmed Problem Hkjsk-9-loygtpplvy n deficiency (72367254) 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) Active confirmed Problem Uncomplicated asthma (disorder) (894858059) Unspecified asthma, uncomplicated (J45.909) Active confirmed Problem Palpitations (37043152) Palpitations (R00.2) Active confirmed Problem Lipid screening (736458118) Encounter for screening for lipoid disorders (Z13.220) Active confirmed Problem Palpitations (11658504) Palpitation (R00.2) Active confirmed Problem Hyperlipidaemia (30872939) Hyperlipidemia, unspecified hyperlipidemia type (E78.5) Active confirmed Problem Anxiety (98828402) Anxiety (F41.9) Active confi rmed Problem Adult health examination (733372365) Adult general medical exam (Z00.00) Active confirmed Problem Kidney stone (81214741) Kidney stone (N20.0) Active confirmed Problem Hypothyroidism (62930602) Hypothyroidism, unspecified type (E03.9) Active confirmed Problem Annual health maintenance examination (00548126) Annual physical exam (Z00.00) Active confirmed Problem Joint pain (10191873) Arthralgia, unspecified joint (M25.50) Active confirmed Problem Vitamin D deficiency (08885688) Vitamin D deficiency (E55.9) Active confirmed Problem Thyroid nodule (927204999) Thyroid nodule (E04.1) Active confirmed Problem Screening for malignant neoplasm of breast (691988491) Breast cancer screening by mammogram (Z12.31) Active confirmed Problem Tuberculosis screening (193515481) Tuberculosis screening (Z11.1) Active confirmed Problem Diabetes mellitus screening (721421228) Diabetes mellitus screening (Z13.1) Active confirmed Problem Requires vaccination (431881757) Encounter for vaccination (Z23) Active confirmed Problem Thyroid disorder screening (348224061) Screening for thyroid disorder (Z13.29) Active confirmed Problem Endocrine/metaboli c screening (345573356) Encounter for screening for endocrine disorder (Z13.29) Active confirmed Vital Signs Heart Rate 87 /min 02/25/2025 Oximetry 98 % 02/25/2025 Blood pressure diastolic 72 mm Hg 02/25/2025 Height 62 in 02/25/2025 Blood pressure systolic 112 mm Hg 02/25/2025 Weight 148 lbs 02/25/2025 BMI 27.07 kg/m2 02/25/2025 Encounters Encounter Location Date Provider Diagnosis [facility] [address] [address] 08/22/2024 ANH HORNE Palpitations R00.2 ; Hyperlipidemia, unspecified hyperlipidemia type E78.5 ; Txxiv-1-umdqulmnrti 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 ; Anxiety F41.9 and Encounter for immunization Z23 [facility] [address] [address] 02/25/2025 ANH HORNE Hyperlipidemia, unspecified hyperlipidemia type E78.5 ; Annual physical exam Z00.00 ; Palpitations R00.2 ; Mcmtt-6-niyqxewdfis 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 ; Anxiety F41.9 and Breast cancer screening by mammogram Z12.31 [facility] [address] [address] 08/22/2024 ROMEO VIVEROS Adult general medica l exam Z00.00 ; Encounter for screening for lipoid disorders Z13.220 ; Diabetes mellitus screening Z13.1 ; Vitamin D deficiency, unspecified E55.9 and Encounter for screening for endocrine disorder Z13.29 Assessments Encounter Date Diagnosis (ICD Code) Assessment Notes Treatment Notes Treatment Clinical Notes [...] software and direct typing Please excuse inadvertent home improvement contractor or typing errors, or uncorrected word substitutions Although every attempt has been made by the provider to proofread this document, occasional misspellings and typographical errors may still be present Due to the previous pandemic, and the use of personal protective equipment (PPE) This may decrease voice recognition accuracy Inadvertent home improvement contractor errors may occur 08/22/2024 Hyperlipidemia, unspecified hyperlipidemia [...] software and direct typing Please excuse inadvertent home improvement contractor or typing errors, or uncorrected word substitutions Although every attempt has been made by the provider to proofread this document, occasional misspellings and typographical errors may still be present Due to the previous pandemic, and the use of personal protective equipment (PPE) This may decrease voice recognition accuracy Inadvertent home improvement contractor errors may occur 08/22/2024 Adult general medical [...] software and direct typing Please excuse inadvertent home improvement contractor or typing errors, or uncorrected word substitutions Although every attempt has been made by the provider to proofread this document, occasional misspellings and typographical errors may still be present Due to the previous pandemic, and the use of personal protective equipment (PPE) This may decrease voice recognition accuracy Inadvertent home improvement contractor errors may occur 02/25/2025 Annual physical exam [...] software and direct typing Please excuse inadvertent home improvement contractor or typing errors, or uncorrected word substitutions Although every attempt has been made by the provider to proofread this document, occasional misspellings and typographical errors may still be present Due to the previous pandemic, and the use of personal protective equipment (PPE) This may decrease voice recognition accuracy Inadvertent home improvement contractor errors may occur 02/25/2025 Palpitations (ICD-10 - [...] software and direct typing Please excuse inadvertent home improvement contractor or typing errors, or uncorrected word substitutions Although every attempt has been made by the provider to proofread this document, occasional misspellings and typographical errors may still be present Due to the previous pandemic, and the use of personal protective equipment (PPE) This may decrease voice recognition accuracy Inadvertent home improvement contractor errors may occur 08/22/2024 Encounter for screening for lipoid disorders (ICD-10 - Z13.220) 08/22/2024 Qnoua-0-ymndpfkrvq n deficiency (ICD-10 - E88.01) Acute Concerns/Problem [...] software and direct typing Please excuse inadvertent home improvement contractor or typing errors, or uncorrected word substitutions Although every attempt has been made by the provider to proofread this document, occasional misspellings and typographical errors may still be present Due to the previous pandemic, and the use of personal protective equipment (PPE) This may decrease voice recognition accuracy Inadvertent home improvement contractor errors may occur 08/22/2024 Diabetes mellitus screening [...] software and direct typing Please excuse inadvertent home improvement contractor or typing errors, or uncorrected word substitutions Although every attempt has been made by the provider to proofread this document, occasional misspellings and typographical errors may still be present Due to the previous pandemic, and the use of personal protective equipment (PPE) This may decrease voice recognition accuracy Inadvertent home improvement contractor errors may occur 02/25/2025 Ptlsu-3-dwkebrenck n deficiency (ICD-10 - E88.01) Acute Concerns/Problem [...] software and direct typing Please excuse inadvertent home improvement contractor or typing errors, or uncorrected word substitutions Although every attempt has been made by the provider to proofread this document, occasional misspellings and typographical errors may still be present Due to the previous pandemic, and the use of personal protective equipment (PPE) This may decrease voice recognition accuracy Inadvertent home improvement contractor errors may occur 02/25/2025 Anxiety (ICD-10 - F41.9) Acute Concerns/Problem List: 02/25/2025 Updated labs stable and reviewed with patient Thyroid studies unremarkable Palpitations have essentially resolved ASCVD risk 0.5%, no statin recommended at this time. Recommended dietary modification to lower LDL cholesterol. Mood is overall well Cscope 2022, due 5 yr surveilance 2027 [facility] Mammogram last done in 12/2023, patient sent [...] software and direct typing Please excuse inadvertent home improvement contractor or typing errors, or uncorrected word substitutions Although every attempt has been made by the provider to proofread this document, occasional misspellings and typographical errors may still be present Due to the previous pandemic, and the use of personal protective equipment (PPE) This may decrease voice recognition accuracy Inadvertent home improvement contractor errors may occur 08/22/2024 Vitamin D deficiency, unspecified (ICD-10 - E55.9) 08/22/2024 Encounter for immunization (ICD-10 - Z23) [...] software and direct typing Please excuse inadvertent home improvement contractor or typing errors, or uncorrected word substitutions Although every attempt has been made by the provider to proofread this document, occasional misspellings and typographical errors may still be present Due to the previous pandemic, and the use of personal protective equipment (PPE) This may decrease voice recognition accuracy Inadvertent home improvement contractor errors may occur 08/22/2024 Encounter for screening [...] software and direct typing Please excuse inadvertent home improvement contractor or typing errors, or uncorrected word substitutions Although every attempt has been made by the provider to proofread this document, occasional misspellings and typographical errors may still be present Due to the previous pandemic, and the use of personal protective equipment (PPE) This may decrease voice recognition accuracy Inadvertent home improvement contractor errors may occur Plan Of Treatment Pending Test Test Name Order Date Mammogram 02/25/2025 Hemoglobin A1c 09/19/2019 Vitamin B12 03/24/2021 ANTONIO w/Reflex 08/09/2022 Lyme Ab/Western Blot Reflex 08/09/2022 Lipid Panel 09/19/2019 Comp. Metabolic Panel (14) 09/19/2019 Basic Metabolic Panel (8) 03/24/2021 CBC 09/19/2019 CBC 03/24/2021 ESR 08/09/2022 Urinalysis 09/19/2019 Holter Test 11/14/2021 Holter Test 10/10/2021 EKG 10/10/2021 25OH VITAMIN D 03/24/2021 25OH VITAMIN D 02/05/2024 25OH VITAMIN D 02/19/2023 CBC (COMPLETE BLOOD COUNT) 02/19/2023 CBC (COMPLETE BLOOD COUNT) 01/28/2020 CBC (COMPLETE BLOOD COUNT) WITH DIFF 10/2024 COMPREHENSIVE METABOLIC PANEL 02/05/2024 COMPREHENSIVE METABOLIC PANEL 02/19/2023 COMPREHENSIVE METABOLIC PANEL 01/28/2020 CRP, HIGH SENSITIVITY 08/09/2022 LIPID PANEL 02/19/2023 LIPID PANEL 02/05/2024 MAGNESIUM 03/24/2021 RHEUMATOID FACTOR 08/09/2022 T4, TOTAL 10/10/2021 TSH 10/10/2021 TSH 02/19/2023 TSH 02/05/2024 TSH WITH REFLEX TO FT4 01/31/2021 XR L-Spine 2-3 Views 09/13/2023 LIPID PANEL, STANDARD 08/22/2024 COMPREHENSIVE METABOLIC PANEL 08/22/2024 CBC (INCLUDES DIFF/PLT) 08/22/2024 URINALYSIS, COMPLETE 08/22/2024 HEMOGLOBIN A1c 08/22/2024 TSH 08/22/2024 VITAMIN D,25-OH,TOTAL,IA 08/22/2024 COMPLETE URINALYSIS 02/19/2023 US Thyroid 02/05/2024 T-SPOT(R).TB 05/20/2024 CT Abdomen Pelvis W Cont 09/13/2023 Next Appt Details Provider Name:ANH HORNE, 09/01/2025 09:00:00 AM, [address] [facility], [facility], [place], [address], Insurance Providers Payer Name Payer Address Payer Phone Subscriber Number Group Number Insured Name Patient Relationship to Insured Coverage Start Date Coverage End Date [employer] [address] [address] [place] [address] [id number] [phone] ANDREW KIM Self - patient is the insured Medications Administered Medication Instructions Date of Administration Dosage Notes vitamin b12 03/24/2021 1 mL Vitamin B-12 Injection given in left arm. Informed consent taken. Patient tolerated the procedure well and was discharged in stable condition.Basilia Barraza 03/24/2021 01:33:20 PM > Medical (General) History Medical History History ICD Code asthma seasonal allergies alpha 1 antitryspin deficiency Surgical History Surgery Date(Month/Year) section
--- OUTSIDE RECORDS SUMMARY | 2025-05-27 09:03 | XMS_ITS ---
Author Name [facility] Organization Unknown Encounters Encounter Type Encounter Reason Primary Diagnosis Location Date Ambulatory Encntr screen mammogram for malignant neoplasm of breast Encntr screen mammogram for malignant neoplasm of breast [facility] 01/11/2024 Ambulatory Encntr screen mammogram for malignant [...]
--- OUTSIDE RECORDS SUMMARY | 2025-05-27 09:03 | XMS_ITS | Data Portability ---
Author Organization [place] - [facility], [facility] Address [address] [facility] [address] [place] [address] Care Team Providers Care Onion Farmer Name Role Phone ROMEO VIVEROS Primary Care Provider [phone] Assessment No assessment recorded. Plan of Treatment Reminders Order Date Submit Date Provider Last Modified By Organization Details Last Modified Time Details Appointments ANNUAL [employer] HEL[employer] MACHINE 15 2024 12:00P M Arleth Marroquin MD Not available Not available Not available Lab urinalysi s, dipstick 2023 024 [email or web address] In-Office Order, Internal Use Only DO Not Attach Compendium DO Not Attach Compendium, Do Not Delete/merge, [id number] 01/11/2024 12:28:48 urinalysi s, dipstick 2022 023 [email or web address] In-Office Order, Internal Use Only DO Not Attach Compendium DO Not Attach Compendium, Do Not Delete/merge, [id number] 12/27/2022 11:08:47 urinalysi s, dipstick 2021 022 [email or web address] In-Office Order, Internal Use Only DO Not Attach Compendium DO Not Attach Compendium, Do Not Delete/merge, [id number] 12/16/2021 10:19:34 pap, IG + HPV 2021 022 [facility], [address] [place] [address], [id number] 12/20/2021 07:57:34 CT + NG DNA, PCR, unspecifi ed specimen 2020 021 [facility], [address] [place], [address] 12/10/2020 08:14:41 test, urine 2020 021 [email or web address] In-Office Order, Internal Use Only DO Not Attach Compendium DO Not Attach Compendium, Do Not Delete/merge, [id number] 12/08/2020 17:04:31 Referral None recorded. Procedures None recorded. Surgeries None recorded. Imaging None recorded. Medication Orders Mirena 21 mcg/24 hr (up to 8 years) 52 mg intrauter ine device 2020 021 [email or web address] [id number], [address] [facility], [place], [address], 12/08/2020 17:04:31 Patient TargetsNo targets recorded. Patient Instructions Encounter Date Encounter Id Patient Instructions Last Modified By Organization Details Last Modified Time 12/16/2021 [id number] [facility] completed and reviewed with patient. Negative findings. [email or web address] Not available 12/16/2021 10:09:39 12/27/2022 [id number] [facility] screening completed and reviewed with patient. Negative findings. [email or web address] Not available 12/27/2022 11:08:34 01/11/2024 [id number] Behavioral healt h screening completed and reviewed with patient. Negative findings. [email or web address] Not available 01/11/2024 12:21:40 Reason for Referral None Reported. Results Created Date Observation Date Name Description Value Unit Range Abnormal Flag Note LastModifiedBy Organization Detail LastModifiedTime 12/08/1912/08/2020 CT + NG DNA, PCR, unspe cifie d speci men neisseria gonorrhoeae RNA, tma Negati ve negati ve Not Available [facility] [address] [place], [address] 12/10/2020 08:14:40 12/08/1912/08/2020 CT + NG DNA, PCR, unspe cifie d speci men chlamydia trachomatis RNA, tma Negati ve negati ve Not Available [facility] [address] [place], [address] 12/10/2020 08:14:40 12/08/1912/08/2020 pregn marcela test, urine Result negati ve Not Available In-Office Order Internal Use Only DO Not Attach Compendium DO Not Attach Compendium, Do Not Delete/merge, [id number] 12/08/2020 10:33:45 12/16/19 22 12/16/2021 HPV MRNA [...] detec t all HPV types from this sourc e Not Available [facility] [address] [place], [address] 12/20/2021 07:57:32 12/16/19 22 12/16/2021 THINP REP [...] ----- ----- ----- ----- ----- [facility] N: LMP: NG Speci men [facility] e: Cervi x, Endoc ervix HPV RESUL TS: HPV mRNA E6/E7 05541 15061 Appro mc: 12/18 Negat arlyn REF RANGE : Negat arlyn CPT Codes : 60805 ICD Codes : Z12.4 Not Available [facility] [address] [place], [address] 12/20/2021 07:57:34 12/16/19 22 12/16/2021 urina lysis , dipst ick Leukocytes Negati ve Not Available In-Office Order Internal Use Only DO Not Attach Compendium DO Not Attach Compendium, Do Not Delete/merge, [facility] 12/16/2021 09:09:46 12/16/19 22 12/16/2021 urina lysis , dipst ick Nitrite negati ve Not Available In-Office Order Internal Use Only DO Not Attach Compendium DO Not Attach Compendium, Do Not Delete/merge, [facility] 12/16/2021 09:09:46 12/16/19 22 12/16/2021 urina lysis , dipst ick Protein Negati ve Not Available In-Office Order Internal Use Only DO Not Attach Compendium DO Not Attach Compendium, Do Not Delete/merge, [facility] 12/16/2021 09:09:46 12/16/19 22 12/16/2021 urina lysis , dipst ick Glucose Negati ve Not Available In-Office Order Internal Use Only DO Not Attach Compendium DO Not Attach Compendium, Do Not Delete/merge, [facility] 12/16/2021 09:09:46 12/27/19 23 12/27/2022 urina lysis , dipst ick Leukocytes Negati ve Not Available In-Office Order Internal Use Only DO Not Attach Compendium DO Not Attach Compendium, Do Not Delete/merge, [facility] 12/25/2022 09:44:48 12/27/19 23 12/27/2022 urina lysis , dipst ick Nitrite negati ve Not Available In-Office Order Internal Use Only DO Not Attach Compendium DO Not Attach Compendium, Do Not Delete/merge, [facility] 12/25/2022 09:44:48 12/27/19 23 12/27/2022 urina lysis , dipst ick Protein Trace Not Available In-Office Order Internal Use Only DO Not Attach Compendium DO Not Attach Compendium, Do Not Delete/merge, [id number] 12/25/2022 09:44:48 12/27/19 23 12/27/2022 urina lysis , dipst ick Glucose Negati ve Not Available In-Office Order Internal Use Only DO Not Attach Compendium DO Not Attach Compendium, Do Not Delete/merge, [facility] 12/25/2022 09:44:48 12/27/19 23 12/27/2022 urina lysis , dipst ick Appearance Clear Not Available In-Offi ce Order Internal Use Only DO Not Attach Compendium DO Not Attach Compendium, Do Not Delete/merge, [facility] 12/25/2022 09:44:48 12/27/19 23 12/27/2022 urina lysis , dipst ick Color Yellow Not Available In-Office Order Internal Use Only DO Not Attach Compendium DO Not Attach Compendium, Do Not Delete/merge, [facility] 12/25/2022 09:44:48 01/11/20 24 01/11/2024 urina lysis , dipst ick Leukocytes Negati ve Not Available In-Office Order Internal Use Only DO Not Attach Compendium DO Not Attach Compendium, Do Not Delete/merge, [facility] 01/09/2024 11:13:32 01/11/20 24 01/11/2024 urina lysis , dipst ick Nitrite negati ve Not Available In-Office Order Internal Use Only DO Not Attach Compendium DO Not Attach Compendium, Do Not Delete/merge, [facility] 01/09/2024 11:13:32 01/11/20 24 01/11/2024 urina lysis , dipst ick Protein Trace Not Available In-Office Order Internal Use Only DO Not Attach Compendium DO Not Attach Compendium, Do Not Delete/merge, 01/09/2024 11:13:32 01/11/20 24 01/11/2024 urina lysis , dipst ick Glucose Negati ve Not Available In-Office Order Internal Use Only DO Not Attach Compendium DO Not Attach Compendium, Do Not Delete/merge, [id number] 01/09/2024 11:13:32 01/11/20 24 01/11/2024 urina lysis , dipst ick Appearance Clear Not Available In-Offi ce Order Internal Use Only DO Not Attach Compendium DO Not Attach Compendium, Do Not Delete/merge, [id number] 01/09/2024 11:13:32 01/11/20 24 01/11/2024 urina lysis , dipst ick Color Yellow Not Available In-Office Order Internal Use Only DO Not Attach Compendium DO Not Attach Compendium, Do Not Delete/merge, [id number] 01/09/2024 11:13:32 12/08/19 21 12/08/2020 US, unlis lis RAD [email or web address] [address], [place], [address], 12/09/2020 20:43:40 12/08/19 21 12/08/2020 US, unlis lis RAD [address] [address], [place], [address], 12/09/2020 20:44:17 12/23/19 22 12/19/2021 MAMMO , scree katya, tomos ynthe sis, bilat eral HISTOR Y: Patien t is 41 years old and is [...] ly Signed On: Dec 23, 2021 13:48 [facility] [place] [address], [place], [address], 12/26/2021 13:38:59 01/03/2012/27/2022 MAMMO , karen sandersong, tomos ynthe sis, bilat eral HISTOR Y: Ashok aragon is 42 years old and is seen for screen ing. FILMS COMPAR ED: The preslucy t examin ation has been compar ed to a prior imagin g study dated 2021. NUPUR SUNNY ENT: Comput er-aid ed detect ion was [...] ly Signed On: Jan 03, 2023 13:38 [email or web address] [place] [address] [facility] [address], [place], [address], 01/08/2023 08:42:47 01/14/20 24 01/11/2024 MAMMO , scree katya, tomos ynthe sis, bilat eral HISTOR Y: Ashok aragon is 43 years old and is seen for screen ing. FILMS COMPAR ED: The presen t examin ation has been compar ed to prior imagin g studie s dated 2021 and 2022. NUPUR SUNNY ENT: Comput er-aid ed detect ion was [...] ly Signed On: Jan 14, 2024 14:09 [facility] [place] [address] [facility] [address], [place], [address], 01/21/2024 18:18:16 Result Notes Documentation Provider Name and Address Organization Details Recorded Time Mammo, Screening, Tomosynthesis, Bilateral : HISTORY: Patient is 41 years old and is seen for screening. FILMS COMPARED: No prior imaging studies are available for comparison. NUPUR STATEMENT: Computer-aided detection was utilized by the radiologist in the interpretation of this examination. 3D tomosynthesis digital mammographic images were obtained using standard projections. MAMMOGRAM FINDINGS: The breasts are heterogeneously dense, which may obscure small masses. (ACR BIRADS density Category c) * No suspicious masses, calcifications or other abnormalities are seen in either breast. IMPRESSION: There is no mammographic evidence of malignancy. Routine follow-up mammogram in 1 year is recommended. The patient will receive a lay summary of the results of this breast imaging exam. Lay summaries for mammography examinations will also identify the patient's personal breast tissue composition as required by state law. BIRADS Category 1: Negative Electronically Signed By: ERIC GUARDADO Electronically Signed On: Dec 23, 2021 13:48 Nely shields, [facility] 12/26/2021 13:38:59 Mammo, Screening, Tomosynthesis, Bilateral : HISTORY: Patient is 42 years old and is seen for screening. FILMS COMPARED: The present examination has been compared to a prior imaging study dated 12/19/2021. NUPUR STATEMENT: Computer-aided detection was utilized by the radiologist in the interpretation of this examination. 3D tomosynthesis digital mammographic images were obtained using standard projections. MAMMOGRAM FINDINGS: The breasts are heterogeneously dense, which may obscure small masses. (ACR BIRADS density Category c) * No suspicious masses, calcifications or other abnormalities are seen in either breast. IMPRESSION: There is no mammographic evidence of malignancy. Routine follow-up mammogram in 1 year is recommended. The patient will receive a lay summary of the results of this breast imaging exam. Lay summaries for mammography examinations will also identify the patient's personal breast tissue composition as required by state law. BIRADS Category 1: Negative Electronically Signed By: MADHAVI AMES Electronically Signed On: Jan 03, 2023 13:38 Mammo, Screening, Tomosynthesis, Bilateral : 1c Charlene Keita [facility], [facility] 01/08/2023 08:42:47 Mammo, Screening, Tomosynthesis, Bilateral : HISTORY: Patient is 43 years old and is seen for screening. FILMS COMPARED: The present examination has been compared to prior imaging studies dated 12/19/2021 and 12/27/2022. NUPUR STATEMENT: Computer-aided detection was utilized by the radiologist in the interpretation of this examination. 3D tomosynthesis digital mammographic images were obtained using standard projections. MAMMOGRAM FINDINGS: The breasts are heterogeneously dense, which may obscure small masses. (ACR BIRADS density Category c) * No suspicious masses, calcifications or other abnormalities are seen in either breast. IMPRESSION: There is no mammographic evidence of malignancy. Routine follow-up mammogram in 1 year is recommended. The patient will receive a lay summary of the results of this breast imaging exam. Lay summaries for mammography examinations will also identify the patient's personal breast tissue composition as required by state law. BIRADS Category 1: Negative Electronically Signed By: EILEEN PHAN Electronically Signed On: Jan 14, 2024 14:09 [facility] 18:18:16 Problems Name Problem SNOMED Code Status Onset Date Resolution Date Notes Provider Name and Address Organization Details Recorded Time Anemia 257529349 Active 2011 Not Available [facility] 5 06:23:01 Asthma 608533466 Active 2011 Not Available [facility] 5 06:23:01 Vaginitis and vulvovaginiti s Active JERAD CHAVARRIA MD [address] [facility], [address] [place] [address], [address] , [facility] 5 14:31:21 Menorrhagia 602306171 Active JERAD CHAVARRIA MD [address] [facility], [address] [place] [address], [address] , [facility] 5 10:29:12 Vaginitis 93312089 [facility] 12:26:45 Problem Notes None recorded. Procedures Surgical History Date Name Laterality Status Provider Name and Address Organization Details Recorded Time 3 Date of Last Mammogram completed Mojgan Nathalie [facility] 01/09/2024 11:14:47 2 Date of Last Pap Smear completed Mojgan Zelaya [facility] 12/26/2022 11:15:52 1 IUD Removal & Insertion completed Arleth Marroquin MD [address], [place], [address], [facility] 12/11/2020 22:30:05 8 C7S-URT completed JERAD CHAVARRIA MD [address], [place], [address], [facility] 01/18/2018 09:40:15 8 [id number]-[id number] completed JERAD CHAVARRIA MD [address], [place], [address], [facility] 01/18/2018 09:40:13 7 W4X-TYYUCLG completed JERAD CHAVARRIA MD [address], [place], [address], [facility] 08/09/2017 10:29:52 6 F8E-UKMJB completed JERAD CHAVARRIA MD [address], [place], [address], [facility] 11/17/2016 10:56:34 6 A9U-HQZPG completed JERAD CHAVARRIA MD [address], [place], [address], [facility] 11/17/2016 10:56:41 6 P2V-OAWHIAF completed JERAD CHAVARRIA MD [address], [place], [address], [facility] 11/17/2016 10:56:31 6 J6H-MAFEXUUE completed JERAD CHAVARRIA MD [address], [place], [address], [facility] 11/17/2016 10:56:36 5 Y5Y-TGJ completed JERAD CHAVARRIA MD [address], [place], [address], [facility] 11/16/2015 11:16:26 5 A0P-PMKLTVQ completed JERAD CHAVARRIA MD [address], [place], [address], [facility] 11/16/2015 11:16:26 5 O8G-[id number] completed JERAD CHAVARRIA MD [address], [place], [address], [facility] 11/16/2015 11:16:26 5 IUD Insert completed JERAD CHAVARRIA MD [address], [place], [address], [facility] 10/08/2015 10:21:37 5 Q7F-GFGJY completed JERAD CHAVARRIA MD [address], [place], [address], [facility] 09/23/2015 10:29:05 5 X9F-AJGTITZ completed JERAD CHAVARRIA MD [address], [place], [address], [facility] 09/23/2015 10:29:05 5 O7F-DWYQYDFE completed JERAD CHAVARRIA MD [address], [place], [address], [facility] 09/23/2015 10:29:05 Caesarean Section completed Not Available [facility] 05/13/2015 14:57:07 Caesarean Section completed Not Available [facility] 05/13/2015 14:57:07 Imaging Results None recorded. Procedure Notes None recorded. Medical Equipment None [...] Available Flonase 50 mcg/Actua tion nasl susp Saline 1 spray every day by intranas al [...] Updated DateTime 12/08/2020 157.48 cm Lorena Prabhakar [facility] 12/08/2020 12:18:57 Date Recorded Body height Body mass index (BMI) Body weight Systolic blood pressure Diastolic blood pressure Provider Name and Address Organization Details Last Updated DateTime 12/16/2021 157.48 cm 24.8 kg/m2 08802.84 g 118 mm[Hg] 78 mm[Hg] Nicole Tran [facility] 2 10:06:39 Date Recorded Body height Body mass index (BMI) Body weight Systolic blood pressure Diastolic blood pressure Provider Name and Address Organization Details Last Updated DateTime 12/27/2022 157.48 cm 26.5 kg/m2 11045.89 g 102 mm[Hg] 70 mm[Hg] Mojgan Zelaya [facility] 3 10:40:01 Date Recorded Body height Body mass index (BMI) Body weight Systolic blood pressure Diastolic blood pressure Provider Name and Address Organization Details Last Updated DateTime 01/11/2024 157.48 cm 27.1 kg/m2 13285.67 g 110 mm[Hg] 70 mm[Hg] Mojgan Zelaya [facility] 4 11:40:04 Date Recorded Body height Body mass index (BMI) Body weight Systolic blood pressure Diastolic blood pressure Provider Name and Address Organization Details Last Updated DateTime 01/19/2021 157.48 cm 27.5 kg/m2 66592.01 g 106 mm[Hg] 60 mm[Hg] Nicole Tran [facility] 1 16:39:44 Social History Question Answer Notes LastModified by Organizat ion Details LastModified Time Tobacco Smoking Status Never Smoker Nancy shields, [facility] 11/16/2015 11:10:21 Concerns About Meeting Basic Needs (food, Housing, Heat, Etc)? No [email or web address] Information not available 01/11/2024 What Is The Highest Grade Or Level Of School You Have Completed Or The Highest Degree You Have Received? [id number] [email or web address] Information not available 12/16/2021 Does Your Partner [...] Information not available 11/03/2020 Drug Use? No [email or web address] Information no t available 01/30/2019 Do You Feel Safe At Home? Yes Information not available 11/03/2020 What Was The Date Of Your Most Recent Tobacco Screening? 01/11/2024 [email or web address] Information not available 01/11/2024 General Stress Level Medium [email or web address] Information not available 01/11/2024 Have You Recently Traveled Abroad? No Information not available 11/03/2020 Sex: Unknown Functional Status Question Answer Note LastModified by Organization D etails LastModified Time What is your level of alcohol consumption? None [email or web address] Information not available 11/17/2016 What is your exercise level? Moderate Information not available 11/03/2020 Mental Status Question Answer Note LastModified by Organization D etails LastModified Time Do you feel stressed (tense, restless, nervous, or anxious, or unable to sleep at night)? [id number] [email or web address] Information not available 12/16/2021 Family History Relationship Description Onset Age of this Age Resolved Age Notes LastModified by Organization Details LastModified Time Mother Hypertensive disorder [email or web address] Not available 2014 10:23:42 Father History of leukemia [email or web address] Not available 2023 10:49:36 Father Hypertensive disorder [email or web address] Not available 11/16 14:36:53 Notes:No FHx of breast, ovar mk, uterine, colon CA. Medical History Condition Response Asthma Y Defects or Inherited Disease Y Gynecological History Statement/Question Response Abnormal Pap [...] SNOMED-CT Code Diagnosis ICD10 Code Diagnosis Note [id number] [facility] [place] [address] 10/11/2012 00:00:00 [id number] [facility] [address] [place] [address] 09/17/2013 00:00:00 [id number] [facility] [place] [address] 11/07/2013 00:00:00 [id number] [facility] [place] [address] 09/24/2014 00:00:00 [id number] [facility] [place] [address] 11/12/2014 00:00:00 [id number] JERAD CHAVARRIA MD [facility] [place] [address] 09/23/2015 10:00:14 09/23/2015 10:40:43 test negative 072155199 Z32.02 Vaginitis and vulvovaginitis 838684236 N76.0 Menorrhagia 050128676 N9 2.0 [id number] JERAD CHAVARRIA MD [facility] [place] [address] 8 10/07/2015 10:10:42 10/07/2015 10:31:12 Menorrhagia 436507569 N92.0 [id number] JERAD CHAVARRIA MD [facility] [address] [place] [address] 8 10/08/2015 09:48:17 10/08/2015 10:20:27 test negative 223789892 Z32.02 Insertion of intrauterine contraceptive device 19492848 Z30.809 [id number] JERAD CHAVARRIA MD [facility] [address] [place] [address] 8 11/16/2015 10:28:57 11/16/2015 11:19:24 Gynecologic examination 29415102 Z01.419 Screening for malignant neoplasm of cervix 135016486 Z12.4 [id number] JERAD CHAVARRIA MD [facility] [place] [address] 8 11/17/2016 10:26:26 11/17/2016 10:59:21 Gynecologic examination 16764605 Z01.419 Acute vaginitis 36090171 N76.0 Venereal d isease screening 218799682 Z11.3 [id number] JERAD CHAVARRIA MD [facility] [place] [address] 08/09/2017 10:04:09 08/09/2017 10:28:40 Irregular intermenstrual bleeding 79979243 N92.1 [id number] JERAD CHAVARRIA MD [facility] [place], [place] [address] 08/14/2017 12:22:55 08/14/2017 13:03:01 Cyst of ovary 84962419 N83.691 [id number] JERAD CHAVARRIA MD [facility] [address] [place] [address] 01/18/2018 09:11:28 01/18/2018 09:42:51 Gynecologic examination 41525739 Z01.419 Screening for malignant neoplasm of cervix 944010606 Z12.4 Z11.51 [id number] Arleth Marroquin MD [facility] [place] [address] 01/28/2019 09:34:19 01/28/2019 10:07:11 Gynecologic examination 11201069 Z01.419 Annual exam. C/o discharge and vaginal odor. Affirm collected, will treat as indicated. 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 Preventati ve measures, SBE discussed as below. Pap: up to date, NILM/HPV neg Dec 2017, due 2020 Mammo: start screening at age 41 as indicated DEXA: n/a Colonoscop y: start screening at age 51 as indicated Happy with Mirena IUD for contracept ion. Due for removal or exchange September 2020. RTO for annual or sooner as needed. Vaginal odor 282091353 N 89.8 [id number] RAINA SANCHEZ MD [facility] [place] [address] 05/15/2019 14:27:43 05/15/2019 14:53:19 Fibrocystic disease of breast 90208822 N60.19 will continue observing. If the problem persists will schedule for Mammograph y/US. [id number] Arleth Marroquin MD [facility] [place] [address] 11/03/2020 11:33:37 11/03/2020 12:36:07 Gynecologic examination 13543840 Z01.419 Annual exam. Having bleeding q2wks over the last few months, also more cramping, mostly on right side. Has Mirena since Sep 2015. 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 Preventati ve measures, SBE discussed as below. Pap: up to date, NILM/HPV neg Dec 2017, due 2020 Mammo: start screening at age 41 as indicated DEXA: n/a Colonoscop y: start screening at age 45-50 as indicated RTO for Mirena removal/re -insertion , will do with pelvic US due to pain to r/o ovarian/ut erine issue. Depression screening 171 350353 Z13.31 Contraception care 72007 5005 Z30.286 [id number] Arleth Marroquin MD [facility] [address] [place] [address] 12/08/2020 12:12:32 12/08/2020 13:00:02 Uses contraception 78731114 Z30.430 Here for removal/re -insertion of Mirena IUD. Uncomplica lis procedure, pt tolerated well. GC/CT collected today. Position documented with US today. RTO 6wks for IUD check. Venereal d isease screening 638629463 Z11.3 Right lowe r quadrant pain 004211982 R10.31 Pelvic US done for right sided [...] findings. Replacemen t of intrauterine contraceptive device 47126491 Z30.338 [id number] Arleth Marroquin MD [facility] [place] [address] 01/19/2021 16:10:52 01/19/2021 17:10:05 IUD check 168595786 Z30.431 S/p uncomplica lis Mirena IUD insertion for LARC presents for follow-up Happy with device Normal history and bleeding profile Strings visualized on exam RTO for routine exam or sooner as needed [id number] Arleth Marroquin MD [facility] [place] [address] 12/16/2021 09:28:00 12/16/2021 10:26:08 Gynecologic examination [id number] Z01.419 Annual exam. Happy with Mirena IUD. Frequent spotting/l ight bleeding, but not bothersome to her. 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 Preventati ve measures, SBE discussed as below. Pap: collected with HPV cotest today Mammo: start screening now, will schedule in office DEXA: start screening age 65 as indicated Colonoscop y: start screening at age 45-50 as indicated RTO for annual or sooner prn. Screening for malignant neoplasm of cervix [id number] Z12.4 Depression screening 171 [id number] Z13.31 [id number] Arleth Marroquin MD [facility] [place] [address] 12/27/2022 09:51:01 12/27/2022 11:14:03 Gynecologic examination [id number] Z01.419 Annual exam. Happy with Mirena IUD. Irregular spotting/l ight bleeding, happy with device. Encouraged warm compresses for folliculit is and avoiding shaving. 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 Preventati ve measures, SBE discussed as below. Pap: up to date, NILM/HPV neg Nov 2021, due 2024 Mammo: done in office today, results pending DEXA: start screening age 66 as indicated Colonoscop y: start screening at age 45 as indicated RTO for annual or sooner prn. Depression screening 171 [id number] Z13.31 [id number] Arleth Marroquin MD [facility] [place] [address] 01/11/2024 10:48:48 01/11/2024 12:33:44 Gynecologic examination [id number] Z01.419 Annual exam. Happy with Mirena IUD. Irregular spotting/l ight bleeding, happy with device. Uterus is slightly deviated to right side, is likely why she has more cramping on right side, pt reassured. 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 Preventati ve measures, SBE discussed as below. Pap: up to date, NILM/HPV neg Nov 2021, due 2024 Mammo: done in office today, results pending. Discussed screening US for dense breasts. DEXA: start screening age 66 as indicated Colonoscop y: start screening at age 45 as indicated RTO for annual or sooner prn. Depression screening 171 [id number] Z13.31 Health Concerns Section Related Observation LastModified by Organization Detai ls LastModified Time None Recorded Concern Status LastModified by Organization Details LastModified Time None Recorded Advance Directives Directive None Recorded Payers Insurance Date Sequence Insurance Name Policy Number Policy Dhillon Covered Member ID Dhillon Member ID Guarantor Name 01/14/2024 1 [employer] (EPO) [id number] Gino Farrell [id number] Maria De Jesus Hoffmann 01/28/2019 1 [employer] (POS) Gino Hoffmann [id number] Maria De Jesus Hoffmann Notes Date Note Type Note Provider Name and Address Organization Details Recorded Time 12/08/2020 text/html Here for exchang e of Mirena IUD. Was inserted September 2015. Also with right sided abdominal pain, getting pelvic US today. Arleth Marroquin MD [address], [address], [facility] 12/11/2020 22:36:08 01/19/2021 text/html IUD check. Remov al and insertion with US guidance. Some light bleeding day of procedure, nothing since. No pain. Arleth Marroquin MD [address], [phone], [facility] 01/19/2021 17:08:29 12/16/2021 text/html [facility] Annual GYNReported bypatient.History: no gynecologic complaints; no [...] to schedule mammogram Arleth Marroquin MD [address], [address], [facility] 12/16/2021 10:21:48 12/27/2022 text/html [facility] Annual GYNReported bypatient.History: no gynecologic complaints; no [...] within the past year Arleth Marroquin MD [address] [place] [address], [phone], [facility] 12/27/2022 11:12:01 01/11/2024 text/html [facility] Annual GYNReported bypatient.History: no gynecologic complaints; no [...] of pelvis, not severe. Arleth Marroquin MD [address], [address], [facility] 01/11/2024 12:32:21 OBGyn Episode Ob Episode Information Episode Created Date Number of Fetuses Patient Bloodtype Patient rh Status Prepregnancy Weight lbs Domestic Partner Domestic Partner Phone Father Name Nuclear Control Operator Status 01/31/20 19 1 CLOSED Fetus Data First Name Last Name Admitted to NICU Weight (g) Sex Living Outcome Pediatric Complications Fetus ID Race Codes Race Delivery Type Full Term [id number] - Primary Vu Calculation Initial Vu Date [...] Domestic Partner Domestic Partner Phone Father Name Nuclear Control Operator Status 01/31/20 19 1 CLOSED Fetus Data First Name Last Name Admitted to NICU Weight (g) Sex Living Outcome Pediatric Complications Fetus ID Race Codes Race Delivery Type Full Term [id number] - Repeat Vu Calculation Initial Vu Date [...]
[2025-05-27 09:04] VITALS: BMI 26.9
--- NOTE | 2025-05-27 09:04 | A.OFFVIS_ITS ---
VS Expanded 05/27/25 09:04 06/11/25 11:05 Height 5 ft 2 in 5 ft 2 in Weight 147 lb 4.301 oz 147 lb BMI 26.9 26.9 Intake Visit Reasons: Abnormal weight gain Allergies No Known Allergies Allergy (Verified 04/21/25 13:48) Nutrition Presentation Details: Pt presents for MNT for weight gain Gradual wt gain, weight maintaining between 144-147 lbs since 2020 Pt reports working on meal planning, reducing portion sizes. Reports working on physical activity, last yr ran 1/2 marathon food frequency fruits 0-1/d vex/wk dairy: 2-3/d fish 1-2/wk physical activity 3-4 x/wk 1 hr fluids:water 46 oz/d + BS Monitoring Most Recent Diabetes Results: Creatinine, (0.5-1.4) 0.65 mg/dL 04/02/24 BUN, (9-16) 17 mg/dL H 04/02/24 Sodium, (135-145) 142 mmol/L 04/02/24 Potassium, (3.3-5.1) 4.1 mmol/L 04/02/24 Chloride, (96-108) 107 mmol/L 04/02/24 Carbon Dioxide, (22-29) 27 mmol/L 04/02/24 Calcium, (8.4-10.2) 9.8 mg/dL 04/02/24 UJG-Efmrzxs-Jt.Jeor Equation Height: 5 ft 2 in Weight: 147 lb Resting Metabolic Rate: 1277.80 Calculated Activity Level: Mild Activity Calories Needed to Maintain Weight: 1756.98 Diagnosis Nutrition problem #1: excessive energy intake As related to (etiology) #1: diagnosis As evidenced by (sign/symptom) #1: other (weight gain, prevention of wt loss ) [facility] Medical History (Updated 04/21/25 @ 14:30 by Bryant Barraza MD) Weight gain Dizziness Chronic allergic rhinitis Asthma Pgjtx-1-yzdbuvdfitc deficiency Family History (Updated 06/12/21 @ 21:47 by Bryant Barraza MD) Other Edjab-5-wwxbdoesjvk deficiency Asthma Social History Patient Tobacco Use Status: Never used Tobacco Assessment & Plan Assessment & Plan (1) Weight gain: Code(s): R63.5 - Abnormal weight gain Category: Medical Plan: Wt: 66 Kg ( 06/19 ) Est kcal needs as per MSJ: 1800 (40% carb, 30% protein/fat) Est fluid needs as per 25-30 ml/d: 2000 Est prot per day as per 1 g/kg bw: 70 Recommend fiber intake : 8-10 g per day and gradually increase to 25-28 g per day for women and 35-38 g for men or as tolerated Recommend sodium intake per day : less than 2300 mg Educated patient on: ( R = reviewed V = verbalizes understanding N/R = needs review N/A = not applicable * Food sources of carbohydrate, adequate serving sizes and its role in various health conditions: R * Differences between complex carbohydrates a simple carbohydrates, role of fiber in diet: R * Lean protein sources of foods: R * Differences between types of fats and role in diet (mono on saturated fat fatty acids, saturated fatty acids, trans fats): R V N/R * Food sources of sodium in salt and healthy modifications for heart health in kidney health: R V R/V * Vitamins and minerals: R V N/R * Healthy plate method concept: R V N/R * Physical activity: Benefits a precaution: R V N/R * Patient Instructions: Practice mindful eating Distribute total carb per meal to 45 g or less , choosing complex carbohydrates following healthy plate method (3 meals/day) Include 2 fruits a day as a snack Coding Level of Care Code Nutr Indiv Intake (17912) Diagnoses Weight gain R63.5 Time Spent (min) 30
[2025-06-11 11:05] VITALS: BMI 26.9
== END 2025-05-27 09:52 | disposition home or self-care (01) ==
LOC: HO.ENCR 08:54
PROVIDERS: PCP Internal Medicine; Visit Provider Dietitian, Registered
DX: R63.5 Abnormal weight gain (principal)

== ENCOUNTER → 2025-05-27 08:53 | Outpatient (BNVA) | payer OTHER, SELFPAY | PROVIDERS: PCP Internal Medicine; Visit Provider Dietitian, Registered | DX: Z71.3 Dietary counseling and surveillance (principal); R63.5 Abnormal weight gain | CPT/HCPCS: 97802 ==

== ENCOUNTER 2025-10-27 09:50 | Outpatient (REF) | payer OTHER, SELFPAY ==
--- NOTE | ~2025-10-27 | XR_ITS ---
EXAMINATION: XR CHEST CLINICAL INFORMATION: R05.9 - Cough, unspecified COMPARISON: None available. TECHNIQUE: PA and lateral views FINDINGS: Hyperinflated lungs. Pulmonary reticular pattern. No consolidation, pleural effusion or pneumothorax. Cardiomediastinal silhouette size is normal. Mild S-shaped curvature of the mid thoracic spine. Mild multilevel spondylosis. XR/XR chest 2V IMPRESSION: Consider COPD emphysematous type changes without overt acute airspace disease. Electronically signed by: Freddy Harris MD 10/27/2025 11:04 AM HELENE UGARTE
[2025-10-27 10:42] LABS: MANUAL DIFF FLAG NO
[2025-10-27 11:00] LABS: Hematocrit 45.1 % (37.0-47.0); Hemoglobin 15.5 g/dl (12.0-16.0); Imm Gran Abs Auto 0.02 X10*3/uL (0.00-0.03); Imm Gran Pct Auto 0.4 % (0.0-0.4); Lymphocytes Absolute Auto 1.7 X10*3/uL (1.2-4.9); Mean Corpuscular HGB Conc 34.4 g/dl (31.0-35.0); Mean Corpuscular Hemoglobin 30.0 pg (27.0-33.0); Mean Corpuscular Volume 87.2 fL (80.0-98.0); NRBC Abs Auto 0.000 X10*3/uL (0.0-0.012); NRBC Pct Auto 0.0 /100WBC (0.0-0.2); Platelet Count 302 X10*3/uL (160-400); Red Blood Count 5.17 X10*6/uL (4.20-5.50); White Blood Count 5.5 X10*3/uL (4.8-10.8)
[2025-10-27 11:22] LABS: Resp Syncy Virus RNA Qual PCR NEGATIVE (Negative); SARS COV2 PCR INHOUSE NEGATIVE (Negative)
[2025-10-27 11:30] LABS: D Dimer High Sensitivity 287 NG/ML
[2025-10-27 11:42] LABS: Erythrocyte Sedimentation Rate 8 MM/HR (0-20)
[2025-10-27 11:48] LABS: Alanine Aminotransferase 14 U/L (0-31); Albumin Level 4.8 g/dL (3.5-5.0); Alkaline Phosphatase 60 U/L (39-117); Anion Gap 12 (12-20); Aspartate Amino Transferase 21 U/L (5-31); Blood Urea Nitrogen 15 mg/dL (9-16); Calcium 9.8 mg/dL (8.4-10.2); Carbon Dioxide 26 mmol/L (22-29); Chloride 106 mmol/L (96-108); Estimated Glomerular Filt Rate > 60; Potassium 4.4 mmol/L (3.3-5.1); Sodium 140 mmol/L (135-145); Total Protein 7.4 g/dL (6.5-8.0)
[2025-10-30 21:13] LABS: Mycoplasma Pneumoniae - IgG 1.59 (<=0.90); Mycoplasma Pneumoniae - IgM 120 U/mL (<770)
== END 2025-10-27 09:51 | disposition home or self-care (01) ==
LOC: HO.LAB 09:50
PROVIDERS: PCP Internal Medicine; Visit Provider Hospitalist
DX: J45.40 Moderate persistent asthma, uncomplicated (principal); J30.9 Allergic rhinitis, unspecified; E88.01 Alpha-1-antitrypsin deficiency; R42 Dizziness and giddiness; R06.00 Dyspnea, unspecified; R63.5 Abnormal weight gain; R05.1 Acute cough; R06.09 Other forms of dyspnea; Z79.899 Other long term (current) drug therapy
CPT/HCPCS: 71046; 80048; 80076; 82103; 85025; 85379; 85652; 86738; 87637

== ENCOUNTER 2025-10-27 09:50 | Outpatient (AMB) | payer OTHER, SELFPAY ==
[2025-10-27 09:54] VITALS: BP 90/64; PULSE 83; O2SAT 99; BMI 26.4
--- NOTE | 2025-10-27 09:54 | A.OFFVIS_ITS ---
Vital Signs 3 10/27/25 09:54 10/27/25 10:13 10/27/25 10:13 Height 5 ft 2 in Weight 144 lb 6.444 oz BMI 26.4 BP 90/64 104/66 108/70 Blood Pressure Location Lt brachial Rt brachial Rt brachial Position Sitting Supine Standing Pulse 83 Pulse Source Pulse Oximeter Pulse Oximetry (%) 99 Oxygen Delivery Method Room Air Intake Visit Reasons: shortness of breath Acquisition Professional Required: Yes Acquisition Professional Services: Acquisition Professional Offered & Declined Acquisition Professional Name: speaks [place] Allergies No Known Allergies Allergy (Verified 10/27/25 09:57) HPI Comments Details: The patient is a 45 y/o woman with known history asthma in addition to alpha-1 antitrypsin deficiency, MZ with levels of 70, currently receiving augmentation therapy. overall the patient has been doing well on room respiratory therapy. Recently she has had to use her rescue inhaler a couple times for chest tightness and shortness of breath. She has not required any prednisone and has not required any hospitalizations. The patient has been tolerating her off of 1 augmentation therapy without any significant side effects. She does feel tired 24-48 hours after the infusions. The symptoms do resolve. We did review her blood work from October 2020 demonstrating normal renal and liver function. Her inflammatory markers were normal and her off I level increased to 157. in addition to that her IgE levels were elevated consistent with allergies. At this time the patient with plan to continue the infusion therapy. Will plan to repeat her pulmonary function studies and laboratory data sometime the end of the year. 07/27/2023 the patient is here for pulmonary follow-up visit. She continues to do very well. The patient continues on the alpha-1 augmentation therapy on a weekly basis. After the infusions she is still experiencing symptoms of fatigue and also body ache. The symptoms usually last around 24 hours. She also snores per her . She has had a sleep study many years ago which was negative for any sleep apnea. Although if she continues to have daytime drowsiness with an elevated [place] score then over reasonable for her to get home sleep study. She does use a mouth guard. I did recommend she can talk to her dentist about getting hurt elastic type of mandibular device with mouth guards as a good option for snoring and also likely treat mild degree of sleep apnea. We talked about considering switching to a different agent, but, the patient is concerned about potential new side effects from a different preparation. At least do this when she knows where she is getting. She does get some relief when she does take Naprosyn after the infusion. I did recommend she can try taking magnesium for muscle spasms prior to the infusion if this is not helpful then just to take ibuprofen or Naprosyn pre infusion. Will go ahead and repeat her blood work for the next visit her last set of blood work From January 2023 were reassuring. 11/27/2023 the patient is here for sick visit. Apparently she has been sick now for about 5 days. She started getting sick on Sunday evening when she developed some chest tightness and cough. Noticing increasing wheezing. She started using her nebulizer more often. Then she became very fatigued. She did test negative for COVID-19. The patient started coughing and chest congestion with yellow phlegm. She feels still very tired. She did have a swab today which was negative for the flu RSV and also COVID. The patient does have some persistent coughing and also some wheezing on examination. Therefore will go ahead and treated for asthmatic bronchitis. No need for an x-ray at this time. If her symptoms do not respond to her therapy the patient will call for further evaluation. 03/21/2024 the patient is here for a pulmonary follow-up visit. Overall she is still well. She continues infusions on a weekly basis. Still having significant fatigue after the infusions where she needs to usually rest for the rest of the day. She still developing minimal rashes from the infusions. Is using premedications with Benadryl which helped some. She has never had to use her EpiPen. She will continue to monitor closely for any adverse effects or allergic reactions. I which point we would have to hold the infusions. The other poor products we can use but then the also be something new for her to tolerate. Therefore since she is doing okay right now nothing seems to be getting worse will continue with current plan. She will have blood work to make sure that she is tolerating the therapy well and will have to monitor closely her alpha-1 levels and also her liver function studies. The patient continues the Symbicort inhaler. She is exercising more regularly which is reassuring. Overall she feels better from health status standpoint. 05/28/2024 the patient is here for sick visit. The patient has been developing increasing chest tightness and shortness of breath while exercising. Important has to do with the change in the humidity and heat. She has been using Symbicort with partial response. She also has been using her rescue inhaler. She has been noticing increasing shortness of breath. Sometimes palpitations. Sometimes she also complains chest pressure. Dmjn-mf-pweffapg severity. Currently she is doing okay without any chest discomfort. She continues on the alpha-1 augmentation therapy. She does not on a weekly basis. She is still premedicated with Benadryl to minimize adverse effects. It appears to be working well. If the patient develops any worsening symptoms she will call. Otherwise she is going to undergo an EKG and also blood work in case her symptoms persist. Will go ahead and optimize her respiratory therapy by switching her inhaler to breztri. 10/21/2024 the patient is here for sick visit apparently she started developing worsening cough nonproductive in nature the last few days. Denied any fevers or chills. She did have a sore throat although is better at this time. She has been using inhalers has not noticed any worsening chest tightness or wheezing. Positive sick contacts. She is wearing a mask. The patient did have blood work back in 04/14/2024 demonstrating normal alpha-1 levels. Her last PFTs were also reassuring. Will have her come back in 6 months and at that point will repeat her PFTs and plan to do additional blood work. She for now she continues on the alpha-1 augmentation therapy on a weekly basis. 04/21/2025 the patient is here for a pulmonary follow-up visit. Overall she is doing well. She continues to receive her weekly infusions of alpha-1 antitrypsin protein. Seems to be tolerating well though she gets very fatigued for 24-48 hours after administration. Overall she feels the treatment has been a very affecting beneficial. She does feel significantly improved. Her PFTs also were reviewed. It demonstrates normal lung capacity. Normal flow volume loop without any evidence of any obstructive nor restrictive lung disease. The patient did have blood work demonstrating normal kidney function and also normal LFTs. She will need to have a alpha-1 level checked. The last time was checked in 2023 the levels were within normal range. The patient has had some issues with waking. She understands that the weight gain is going to potentially worsening respiratory symptoms. Will be reasonable for her to visit a dietitian to make sure to make lifestyle changes to continue improving her overall status specially with her underlying genetic abnormality. 10/27/2025 the patient is here for sick visit. She has not been feeling well for about a week. He started developing a dry cough. Also feels tired fatigued and dizzy. She has also demonstrated some shortness of breath with minimal activity. Vime-uf-sogapcoq severity. She has been using her respiratory inhalers. She does not really feel any wheezing or chest congestion. Denies any sick contacts. In the office we did check a blood pressure 1 cm the low side with a systolic blood pressure 104. Will check orthostatics but she was not orthostatic. Her oxygen levels were within normal limits. Although a little bit more tachycardic than usual. We did swab the patient for flu COVID and RSV. She will have an x-ray and blood work. In the meantime will start treating her for atypical pneumonia. [facility] Medical History (Updated 10/27/25 @ 11:17 by Bryant Barraza MD) Dyspnea Weight gain Dizziness Chronic allergic rhinitis Asthma Xidxt-0-utvevfokhns deficiency Family History (Updated 06/12/21 @ 21:47 by Bryant Barraza MD) Other Vlhtt-2-beugqmchwlh deficiency Asthma Social History Patient Tobacco Use Status: Never used Tobacco Review of Systems Const Reports body aches, Reports fatigue, Denies fever(s) and Denies night sweats ENT Denies change in voice, Denies lip swelling, Denies mouth pain, Reports nasal congestion, Reports nasal discharge, Reports post nasal drip, Reports sore throat and Denies tongue swelling Card Denies chest pain and Reports dyspnea on exertion Resp Denies change in phlegm color, Denies chest congestion, Reports cough, Reports dyspnea on exertion and Denies wheezing GI Denies abdominal pain Musc Reports as per HPI, Reports myalgias and Reports arthralgias Skin/Breast Reports rash Neuro Denies Neuro-related abnormal movements, Reports burning sensations and Reports paresthesias Psych Denies no additional complaints Endo Reports fatigue Khoa/Lymph Denies easy bleeding and Denies lymphadenopathy Aller/Immun Denies lip swelling, Denies tongue swelling and Denies wheezing Physical Exam Vital Signs: Last Vital Signs Pulse 83 10/27/25 09:54 BP 108/70 10/27/25 10:13 Pulse Ox 99 10/27/25 09:54 Oxygen Delivery Method Room Air 10/27/25 09:54 BMI result Body Mass Index 26.4 Const General: alert and tired appearing HEENT Head: Yes normocephalic Eyes Pupils: Equal, round and reactive pupils present Neck Neck: Yes normal visual inspection, Yes full ROM and Yes no lymphadenopathy Chest Chest palpation & inspection: normal inspection of the chest Resp Effort & Inspection: normal respiratory effort and Actively coughing Quality: dry Auscultation: diminished lung sounds Cardio Rate: regular rate Rhythm: regular rhythm Heart sounds: S1 normal heart sound present and S2 normal heart sound present GI Palpation (GI): Soft to palpation and nontender Auscultation: normal bowel sounds Skin Other: General skin exam: petechiae Rashes: rashes noted (pleuritic patches and petichia) Neuro Cranial nerves: Yes Equal, round and reactive pupils present Assessment & Plan Assessment & Plan (1) Wwjkd-7-iafqjkpuhec deficiency: Code(s): E88.01 - Iocgi-1-mrztouqnvxw deficiency Category: Medical (2) Weight gain: Code(s): R63.5 - Abnormal weight gain Category: Medical (3) Asthma: Code(s): J45.909 - Unspecified asthma, uncomplicated Category: Medical Qualifiers: Asthma complication type: uncomplicated Asthma persistence: persistent Asthma severity: moderate Qualified Code(s): J45.40 - Moderate persistent asthma, uncomplicated (4) Chronic allergic rhinitis: Code(s): J30.9 - Allergic rhinitis, unspecified Category: Medical (5) Cough: Code(s): R05.9 - Cough, unspecified Category: Medical Qualifiers: Cough type: acute Qualified Code(s): R05.1 - Acute cough (6) Dizziness: Code(s): R42 - Dizziness and giddiness Category: Medical (7) Dyspnea: Code(s): R06.00 - Dyspnea, unspecified Category: Medical Qualifiers: Dyspnea type: dyspnea on exertion Qualified Code(s): R06.09 - Other forms of dyspnea Plan Breztri JOSEPH as needed Continue Singulair Continue alpha 1 antitrypsin aumentation therapy weekly. Monitor for worsening rash start Doxycycline Benzonates for cough Bloodwork CXR F/U 1-2 months Orders: Orders 2 Mycoplasma Pneumoniae IgG&IgM Today R05.9 - Cough, unspecified, R06.00 - Dyspnea, unspecified, R42 - Dizziness and giddiness Complete Blood Count Auto Diff Today R05.9 - Cough, unspecified, R06.00 - Dyspnea, unspecified, R42 - Dizziness and giddiness D Dimer High Sensitivity Today R05.9 - Cough, unspecified, R06.00 - Dyspnea, unspecified, R42 - Dizziness and giddiness Erythrocyte Sedimentation Rate Today R05.9 - Cough, unspecified, R06.00 - Dyspnea, unspecified, R42 - Dizziness and giddiness SARS-CoV2/FLU/RSV Today R05.9 - Cough, unspecified Basic Metabolic Panel Today R05.9 - Cough, unspecified, R06.00 - Dyspnea, unspecified, R42 - Dizziness and giddiness XR chest 2V Today R05.9 - Cough, unspecified Medications: New 2 doxycycline hyclate 100 mg PO BID 20 caps 0RF 10 days Refilled 2 albuterol sulfate 2.5 mg (3 mL) inhalation Q6H PRN 180 mL 11RF shortness of breath or wheezing 30 days benzonatate 200 mg PO BID PRN 60 caps 3RF cough 30 days Coding Level of Care Code Est Pt Level 4 (12027) Diagnoses Babzc-5-vjbsumalipy 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 Weight gain R63.5 Moderate persistent asthma without complication J45.40 Asthma complication type: uncomplicated Asthma persistence: persistent Asthma severity: moderate Chronic allergic rhinitis J30.9 Acute cough R05.1 Cough type: acute Dizziness R42 Dyspnea on exertion R06.09 Dyspnea type: dyspnea on exertion Time Spent (min) 17
[2025-10-27 10:13] VITALS: BP 104/66; BP 108/70
--- OUTSIDE RECORDS SUMMARY | 2025-10-27 10:56 | XMS_ITS | Clinical Summary ---
Author Organization [address] Address [address] [place] [id number] Phone Care Team Providers Care Box Lining Machine Feeder Name Role Phone Marta Franco MD Primary Care Provider [phone] Surgical History Surgery Date Site/Laterality Comments SECTION PROCEDURE: IA DELIVERY ONLY; COMMENT: x2 Medical History Medical History Date Comments Yxmyi-4-ehgngdidbwo deficien cy (CMS/HCC V24, CMS/HCC V28) DX:Wpyxx-9-ugkbjewdwfv defic iency ([facility]) Family History Medical History Relation [...] 2000 Cervical Cancer Screening: Pap Smear 2002 HPV Vaccines (1 - 3-dose SCDM series) 2008 HIV Screening 10/29/2022 Hepatitis C Screening 10/29/2022 Social Influencers of Health Screening 10/29/2022 Depression Screening 11/26/2024 COVID-19 Vaccine ( season) 2025 11/03/2022, 09/30/2021, 03/18/2021, Additional history exists Influenza Vaccine (#1) 2025 , 09/16/2021, 08/23/2018 Breast Cancer Screening 03/03/2027 03/03/2025 Cholesterol Screening (Lipid Panel) 02/20/2030 02/20/2025 RSV Immunization Adult Patients (1 - 1-dose 75+ series) 2056 Pneumococcal Vaccine: Pediatrics (0 to 5 Years) and At-Risk Patients (6 to 49 Years) Completed 01/26/2023 HIB Vaccines Aged Out [...] year. Mamm[facility] location: [facility] at [address], [address] -------- FINAL REPORT -------- Dictated By: Albert Rajput Dictated Date: 03/11/2025 10:31 ET Assigned Physician: Albert Rajput Reviewed and Electronically Signed By: Albert Rajput Signed Date: 03/11/2025 10:38 ET Workstation ID: [id number] Transcribed By: Self Edit Transcribed Date: 03/11/2025 [...] Tomosynthesis. Computer-aided detection was employed with the [employer] 3-D. TISSUE DENSITY: The breasts are heterogeneously [...] Tomosynthesis. Computer-aided detection was employed with the [employer] 3-D. TISSUE DENSITY: The breasts are [...] year. Mammography location: [facility] at [address], [address] -------- FINAL REPORT -------- Dictated By: Albert Rajput Dictated Date: 03/11/2025 10:31 ET Assigned Physician: Albert Rajput Reviewed and Electronically Signed By: Albert Rajput Signed Date: 03/11/2025 10:38 ET Workstation ID: [id number] Transcribed By: Self Edit Transcribed Date: 03/11/2025 10:31 ET us Florence Al NP IMG BI PROCEDURES Final Resul t * (ABNORMAL) Lipid panel with reflex to direct LDL (02/20/2025 9:22 AM EDT) Cholesterol 184 0 - 200 mg/dL LAB CHEMISTRY METHOD 02/20/2025 12:17 PM EDT [facility] Triglycerides 47 0 - 150 mg/dL LAB CHEMISTRY METHOD 02/20/2025 12:17 PM EDT [facility] HDL 56 >=40 mg/dL LAB CHEMISTRY METHOD 02/20/2025 12:17 PM EDT [facility] LDL Calculated 119(H) 0 - 100 mg/dL LAB CHEMISTRY METHOD 02/20/2025 12:17 PM EDT [facility] VLDL Cholesterol Jeffry 9.4 mg/dL LAB CHEMISTRY METHOD 02/20/2025 12:17 PM EDT [facility] Non HDL Chol. (LDL+VLDL) 128 <145 mg/dL LAB CHEMISTRY METHOD 02/20/2025 12:17 PM EDT [facility] Chol/HDL Ratio 3.3 0.0 - 4.4 LAB CHEMISTRY METHOD 02/20/2025 12:17 PM EDT [facility] Blood Venous blood specimen / Unknown Venipuncture / Unknown 02/20/2025 9:22 AM EDT 02/20/2025 10:23 AM EDT us Marta Franco MD LAB BLOOD ORDERABLES Final Resul t [facility] [address] [place] [address], from Last 3 Months or Most Recently Relevant to Health Maintenance Insurance [employer] Care Teams Box Lining Machine Feeder Relationship Specialty Start Date End Date Marta Franco MD [address] [place] [address] [address] [id number] PCP - General Internal Medicine 02/20/25
== END 2025-10-27 10:24 | disposition home or self-care (01) ==
LOC: HO.HPS 09:51
PROVIDERS: PCP Internal Medicine; Visit Provider Hospitalist
DX: E88.01 Alpha-1-antitrypsin deficiency (principal); R63.5 Abnormal weight gain; J45.40 Moderate persistent asthma, uncomplicated; J30.9 Allergic rhinitis, unspecified; R05.1 Acute cough; R42 Dizziness and giddiness; R06.09 Other forms of dyspnea
CPT/HCPCS: 99214

== ENCOUNTER → 2025-10-27 10:41 | Outpatient (BNV) | payer OTHER, SELFPAY | PROVIDERS: PCP Internal Medicine; Visit Provider Radiology Diagnostic Radiology | DX: J98.11 Atelectasis (principal); R91.1 Solitary pulmonary nodule; R05.9 Cough, unspecified | CPT/HCPCS: 71046; 71275 ==

== ENCOUNTER 2025-10-27 15:28 | Outpatient (REF) | payer OTHER, SELFPAY ==
--- NOTE | ~2025-10-27 | CT_ITS ---
EXAMINATION: CT CHEST ANGIOGRAPHY WITH IV CONTRAST INDICATION: R06.09 - Other forms of dyspnea COMPARISON: There are no prior studies available for comparison. TECHNIQUE: Helical CT scan of the chest was performed following administration of intravenous contrast (65 mL Omnipaque 350). The contrast bolus was timed to optimally opacify the pulmonary arteries. Thin sections were obtained through the pulmonary arteries. Coronal and sagittal reformatted images were generated. 3D/MIP reconstructed images are also obtained and reviewed. This CT exam was performed with one or more of the following dose reduction techniques: automated exposure control, adjustment of the mA and/or kV according to patient size, use of iterative reconstruction technique. DLP: 81 mGy-cm CHEST: THYROID: The visualized thyroid gland is unremarkable. PULMONARY ARTERIES: No intraluminal filling defects are identified within the pulmonary arteries to suggest pulmonary emboli. The pulmonary arteries are normal in caliber, main pulmonary artery measuring 2 cm. No evidence of right heart strain. No reflux contrast into the liver. LUNGS: 4 mm left upper lobe groundglass attenuation nodule for example axial image 102 series 5. Mild dependent atelectasis. No evidence of pulmonary edema or pneumonia. MEDIASTINUM: There is no mediastinal lymphadenopathy. GAMALIEL: There is no hilar lymphadenopathy. CARDIOVASCULATURE: The heart is slightly enlarged. There is no pericardial effusion. The thoracic aorta is normal in caliber. DEGREE OF CORONARY CALCIFICATION: none PLEURA: There is no pleural effusion. No pneumothorax. MAIN AIRWAYS: The mainstem bronchi and proximal branches are patent. AXILLA: Small bilateral axillary lymph nodes. No enlarged lymph nodes. No chest wall mass. UPPER ABDOMEN: The visualized portions of the liver, spleen, and adrenals are unremarkable. BONES AND SOFT TISSUES: Unremarkable. CT/CT angio chest PE protocol IMPRESSION: No evidence of pulmonary emboli. Slightly enlarged heart. No evidence of right heart strain. Dependent atelectasis. 4 mm groundglass attenuation left upper lobe nodule. Fleischner Criteria for pulmonary nodule follow-up SOLID NODULES: Low risk patient: <6mm: no follow-up 6-8mm: 6 month follow-up CT >8mm: PET/Biopsy/ 3 month follow-up CT High risk patient: <6mm: 12 month follow-up CT 6-8mm: 6 month follow-up CT >8mm: PET/Biopsy/ 3 month follow-up CT SUB-SOLID/GROUNDGLASS NODULES: All patients: > or = 6mm: 6 month follow-up CT *Please note that in patients in the following categories, the Fleischner criteria do not apply: Immunocompromised, lung cancer screening population, age below 35, and patients with known malignancy Electronically signed by: Suzanne Barrera MD 10/27/2025 04:38 PM EST
[2025-10-27] MEDS: iohexoL 350 MG/ML 100 ML INFUS..BTL IV (16:13)
== END 2025-10-27 15:29 | disposition home or self-care (01) ==
LOC: HO.CT 15:28
PROVIDERS: PCP Internal Medicine; Visit Provider Hospitalist
DX: R06.09 Other forms of dyspnea (principal); R78.89 Finding of other specified substances, not normally found in blood
CPT/HCPCS: 71275; Q9967